=== PATIENT | female | born 1955 | race Caucasian/White ===

== ENCOUNTER 2018-12-07 19:13 | Inpatient (IN) | payer OTHER, SELFPAY ==
[2018-12-07 19:13] VITALS: BP 129/75; PULSE 120; RESP 15; TEMP 36.9; O2SAT 95; BMI 25.7
--- NOTE | 2018-12-07 19:53 | ED.DCSUM_ITS ---
- ER Visit Summary Date of Service: 12/07/18 Chief Complaint: Nausea and vomiting History of Present Illness: The patient is a 63 F who was at a birthday republican for her grandson 1 week ago. The following day the patient's son and grandson had GI illness. Patient developed chills and body aches 5 days ago along with diarrhea. She is now had vomiting as well for the past 3 days. She went to urgent care earlier today and was given Zofran. This is not helping her vomiting. Patient complains of feeling bloated and having increased belching. She has not had blood associated either with her vomiting or with the diarrhea. Physical Examination: Vital signs significant for heart rate of 120, otherwise unremarkable. Patient sitting upright in bed no acute distress. She is nontoxic appearing. Head neck examination unremarkable. Heart is tachycardic and regular. Lungs sounds are clear. Abdomen is soft with no focal tenderness to palpation. Hypoactive bowel sounds are present currently. Test Results: CBC is unremarkable. Chemistry studies reveal a sodium of 125 potassium 3.4. BUN is 44 and creatinine is 1.16. Urinalysis shows 150 ketones but no infection. LFTs normal. Abdominal x-ray and upright images are concerning for small bowel obstruction. Emergency Department Course and Treatment: Patient was given IV fluids and Phenergan. She initially told me she was having diarrhea but when asked further she states she had diarrhea for the first day or 2, but has not passed any stool in the last 3 days. Due to continued nausea she did receive a dose of Reglan and Benadryl. After observing the x-rays patient was sent for a CT scan of the abdomen and pelvis with IV contrast. She was not able to tolerate p.o. contrast. Findings of this revealed a high-grade distal small bowel obstruction. Air-fluid level is noted in the mid pelvis and considerations include internal hernia or abscess. Normal-appearing appendix is noted. NG tube is ordered in place without difficulty. She initially has 1200 cc of fluid out and feels significantly improved. Abdomen is soft with very minimal tenderness. Surgeon and hospitalist are discussed the case at this time for admission. Treatment Plan: [] Disposition: Admit Impression: Small bowel obstruction This note was generated with Wize dictation software. It may contain incorrect words, spelling, and punctuation that were not noted in review of the chart prior to signing ED Disposition - Plan for ED Patient: Disposition: Acute Care Hospital [facility]
[2018-12-07] MEDS: 0.9% Normal Saline 1,000 ML 1000 ML IV (19:59)
[2018-12-07] MEDS: proMETHazine 25 MG/ML Syringe 12.5 MG IV (19:59)
[2018-12-07 20:16] LABS: Absolute Lymphocyte Count 0.77 X10^3/ul (0.83-4.51); Absolute Neutrophil Count 3.1 X10^3/uL (2.0-7.7); Basophil# 0.01 X10^3/uL; Basophil% 0.2 % (0-1); Eosinophil# 0.01 X10^3/uL; Eosinophils% 0.2 % (0-5); Hematocrit 41.1 % (37-47); Hemoglobin 14.5 g/dl (12.0-15.0); Lymphocyte # 0.77 X10^3/ul (4.0); Lymphocyte % 16.8 % (19-41); Mean Corp Hgb Conc 35.3 g/gl (32-36); Mean Corpuscular Hgb 31.8 pg (27.0-32.0); Mean Corpuscular Volume 90.1 fL (81-99); Mean Platelet Vol. 10.5 fl (6.2-12.0); Monocyte# 0.68 X10^3/uL; Monocyte% 14.8 % (0-10); Neutrophil # 3.09 X10^3/uL (2.7-7.7); Neutrophil % 67.3 % (47-70); Platelet Count 433 K/mm3 (150-450); RBC Distribution Width CV 13.2 % (11.6-14.6); Red Blood Count 4.56 M/mm3 (4.2-5.4); White Blood Count 4.6 K/mm3 (4.4-11.0)
[2018-12-07 20:18] LABS: POSITIVE COUNT NO; POSITIVE DIFFERENTIAL NO; POSITIVE MORPHOLOGY NO
[2018-12-07 20:34] LABS: AST(SGOT) 19 U/L (15-37); Alanine Aminotransfer ALT/SGPT 23 U/L (13-56); Albumin, Serum 3.8 g/dL (3.2-5.0); Alkaline Phosphatase 84 U/L (45-117); Anion Gap 13 (5-15); BUN 44 mg/dL (7-18); BUN/Creat Ratio 37.9 RATIO (10-20); Bilirubin, Direct 0.16 mg/dL (0.00-0.30); Calcium,Total 9.5 mg/dL (8.5-10.1); Chloride 82 mmol/L (98-107); Creatinine, Serum 1.16 mg/dL (0.55-1.02); EST Glomerular Filtration Rate 50 mL/min (>60); Est Glom Filt Rate - Afr Amer 60 mL/min (>60); Estimated Creatinine Clearance 45.87 ml/min; Globulin 5.1 g/dL (2.2-4.2); Glucose 145 mg/dL (74-106); Potassium 3.4 mmol/L (3.5-5.1); Protein, Total 8.9 g/dL (6.4-8.2); Sodium Level 125 mmol/L (136-145)
[2018-12-07] MEDS: 0.9% Normal Saline 1,000 ML 150 ML IV (20:36)
[2018-12-07 20:43] LABS: Color, Urine Yellow (Yellow); Glucose, Dipstick Normal (Normal); Leukocyte Esterase-Dipstick 25 /ul (Negative); Nitrite-Dipstick Negative (Negative); Occult Blood-Urine 25 /ul (Negative); Protein-Dipstick 100 mg/dl (Negative); Urine Clarity Cloudy (Clear); Urine Urobilinogen 1 mg/dl (Normal)
[2018-12-07 20:44] LABS: Urine Bilirubin Dipstick 3 mg/dL (Negative)
[2018-12-07 20:45] LABS: Ketone-Dipstick 150 mg/dl (Negative)
[2018-12-07 20:50] LABS: Squamous Epithelial Cells - UA 5-10 SEEN /hpf (5-10); White Blood Cells 0-5 SEEN /hpf (0-5)
[2018-12-07 20:52] LABS: Bacteria 2+ /hpf (None Seen); Hyaline Cast 0-5 SEEN /lpf (0-5); Mucous, Urine 2+ /hpf (<or=2+); Red Blood Cells-Urine 0-5 SEEN /hpf (0-5)
--- NOTE | 2018-12-07 21:28 | ED.RN ---
lab called critical result on this pt of ketones in urine of 150, dr don notified, NFO
[2018-12-07] MEDS: Metoclopramide 10 MG/2 ML Vial 5 MG IV (21:35)
[2018-12-07] MEDS: 0.9% Normal Saline 1,000 ML 999 ML IV (21:36)
--- NOTE | 2018-12-07 21:37 | RAD_ITS ---
HISTORY: VOMITING x3 DAYS, GAS PAINS EXAM/TECHNIQUE: XR Abdomen supine and upright views. COMPARISON: None. FINDINGS: # of images incl. paperwork: 2 Dilated loops of small bowel with air-fluid levels on the upright view. No apparent free air. No suspicious mass-effect or acute osseous abnormality. Left scoliosis lumbar spine. Upper abdominal calcifications are probably costochondral. No definite pathologic calcifications. Air and stool is seen within the large bowel but it is relatively decompressed. RAD/Abd Inc Decub and/or Erect IMPRESSION: Small bowel obstruction. No evidence of free air. CT abdomen/pelvis would more definitively evaluate. at [id number] Reported and signed by: Sergo Ramirez MD Electronically Signed: Sergo Ramirez, at 22:45 EDT Tel , Service support ,
--- NOTE | 2018-12-07 22:41 | CT_ITS ---
STUDY: CT ABDOMEN AND PELVIS WITH CONTRAST REASON FOR EXAM: Female, 63 years old. Right-sided abdominal pain for one week. RADIATION DOSAGE (If Supplied By Facility): CTDIvol = ( 13.15 ) mGy, DLP = ( 673.06 ) mGycm TECHNIQUE: Transaxial images were obtained from the dome of the diaphragm to the symphysis pubis without oral contrast. Isovue 300 100 IV was administered. Sagittal and coronal images were reconstructed. Individualized dose optimization techniques were used for this CT. COMPARISON: Abdominal series December 07, 2018. FINDINGS: The visualized lung bases are unremarkable. The visualized portions of the heart are within normal limits. Normal liver. Normal gallbladder and extrahepatic biliary system. Normal spleen. Normal pancreas. Normal bilateral adrenal glands. Normal right kidney. Normal left kidney. Small hiatal hernia filled with fluid. The stomach is dilated with fluid. Fluid-filled loops of small bowel some dilated to 4 cm compatible with a distal small bowel obstruction. Transition zone right hemipelvis at approximately the level of the iliac crest. Air fluid level measuring 6.1 x 3.2 cm the mid pelvis which may represent an internal hernia or an abscess axial image 80 series 2 and coronal image 48 series 601. Mild colonic diverticulosis . The appendix is visualized and appears normal. Normal abdominal aorta. Normal inferior vena cava. Normal retroperitoneum. No intra-abdominal free air. Normal urinary bladder. Uterus grossly normal. No adnexal mass is seen. Normal abdominal wall. Multilevel degenerative changes of the lumbar spine. CT/Abdomen/Pelvis W IV Cont ONLY IMPRESSION: High-grade distal small bowel obstruction. Air-fluid level in the mid pelvis. Considerations include an internal hernia or an abscess. Mild colonic diverticulosis. Normal appendix. Electronically Signed: Jian Covarrubias MD at 0:49 EDT , Service support ,
--- NOTE | 2018-12-08 00:48 | RAD_ITS ---
STUDY: X-RAY - ABDOMEN/PELVIS REASON FOR EXAM: Female, 63 years old. Nasogastric tube placement. TECHNIQUE: AP upright abdomen. COMPARISON: December 07, 2018. FINDINGS: Normal visualized lung bases. Nasogastric tube is now present with the tip in the gastric fundus. Dilated loops of small bowel in the upper abdomen improved since the prior exam. There is no demonstrated free abdominal air. The visualized liver, spleen and kidneys are grossly normal in size and morphology. Intravenous contrast within normal-appearing collecting systems and ureters from recent CT scan. Normal soft tissue structures. Degenerative changes of the lumbar spine. RAD/Abdomen Single View (Portable) IMPRESSION: Nasogastric tube tip in the gastric fundus. Improving small bowel obstruction. Electronically Signed: Jian Covarrubias MD at 2:16 EDT , Service support ,
[2018-12-08 00:53] VITALS: BP 130/82; PULSE 98; RESP 20; O2SAT 97
--- NOTE | 2018-12-08 01:04 | ED.RN ---
DR ANDREA PAGED FOR DR ORNELAS
--- NOTE | 2018-12-08 01:10 | ED.RN ---
PT STATES SHE TAKES OTC MEDICATION/SUPPLEMENTS, BUT NO RXS.
--- NOTE | 2018-12-08 01:11 | HP.PCM_ITS ---
History of Present Illness The patient is a 63 year old F [] Past Medical History Allergies No Known Allergies Allergy (Verified 12/07/18 19:18) Home Medications: Ambulatory Orders Medication Instructions Recorded NK 12/08/18 Smoking Status: Former smoker - Physical Exam Vital Signs Temp Pulse Resp BP Pulse Ox 98.5 F 98 20 H 130/82 H 97 12/07/18 19:13 12/08/18 00:53 12/08/18 00:53 12/08/18 00:53 12/08/18 00:53 Oxygen Delivery Method Room Air Weight: 72.121 kg Body Mass Index (BMI) 25.7 Intake and Output for Last 24 Hours 12/06/18 12/07/18 12/08/18 23:59 23:59 23:59 Output Total 1200 / 1200 Balance -1200 / -1200 Laboratory Tests Past 24 Hrs 12/07/18 12/07/18 12/07/18 20:00 20:00 20:30 WBC 4.6 RBC 4.56 Hgb 14.5 Hct 41.1 MCV 90.1 MCH 31.8 MCHC 35.3 RDW 13.2 RDW Differential 43.0 Plt Count 433 MPV 10.5 Immature Gran % (Auto) 0.700 Neut % (Auto) 67.3 Lymph % (Auto) 16.8 L [place] % (Auto) 14.8 H Eos % (Auto) 0.2 Baso % (Auto) 0.2 Absolute Neuts (auto) 3.1 Absolute Lymphs (auto) 0.77 L Total Counted Not Reportable Sodium 125 L Potassium 3.4 L Chloride 82 L Carbon Dioxide 30.0 Anion Gap 13 BUN 44 H Creatinine 1.16 H Estim Creat Clear Calc 45.87 Est GFR (MDRD) Af Amer 60 Est GFR (MDRD) Non-Af 50 L BUN/Creatinine Ratio 37.9 H Glucose 145 H Calcium 9.5 Total Bilirubin 0.50 Direct Bilirubin 0.16 AST 19 ALT 23 Alkaline Phosphatase 84 Total Protein 8.9 H Albumin 3.8 Globulin 5.1 H Urine Color Yellow Urine Clarity Cloudy Urine pH 5.0 Ur Specific [place] 1.020 Urine Protein 100 H Urine Glucose (UA) Normal Urine Ketones 150 H Urine Occult Blood 25 H Urine Nitrite Negative Urine Bilirubin 3 H Urine Urobilinogen 1 H Ur Leukocyte Esterase 25 H Urine RBC 0-5 SEEN Urine WBC 0-5 SEEN Ur Squamous Epith Cells 5-10 SEEN Urine Bacteria 2+ Hyaline Casts 0-5 SEEN Urine Mucus 2+
--- NOTE | 2018-12-08 01:55 | HP.PCM_ITS ---
Problem List (1) Small bowel obstruction Status: Acute (2) Hyponatremia Status: Acute (3) Hypokalemia Status: Acute History of Present Illness Date of Admission: 12/08/18 The patient is a 63 F who was at a birthday constitution party for her grandson 1 week ago. The following day the patient's son and grandson had GI illness. Patient developed chills and body aches 5 days ago along with diarrhea. She is now had vomiting as well for the past 3 days. She went to urgent care earlier today and was given Zofran. This is not helping her vomiting. Patient complains of feeling bloated and having increased belching. She has not had blood associated either with her vomiting or with the diarrhea. Past Medical History Allergies No Known Allergies Allergy (Verified 12/07/18 19:18) Home Medications: Ambulatory Orders Medication Instructions Recorded NK 12/08/18 Surgical History: no surgical history Smoking Status: Former smoker - *Family History Maternal History Items: No pertinent history Review of Systems HEENT: Denies: Dysphasia, Ear Pain, Eye Pain, Head Aches, Hearing Changes, Sore Throat Cardiovascular: Denies: Chest Pain, Chest Pressure, Chest Tightness, Palpitations Respiratory: Denies: Cough, Hemoptysis, Shortness of breath at rest, Shortness of breath upon exertion, Wheezing Gastrointestinal: Reports: Nausea, Vomiting - Patient feels much better since NG tube is in place he is not complaining of any overt abdominal pain Genitourinary: Denies: Dysuria, Frequency, Hematuria, Urgency VTE Information - Inpt Only VTE Present on Admission: No VTE Mechan Device Prophylaxis: SCD's VTE Pharm Prophylaxis ordered?: No Reason prophylaxis not ordered:: Treatment Not Indicated Patient Problems: Active and Suspected Problems Small bowel obstruction (Acute) Hyponatremia (Acute) Hypokalemia (Acute) - Physical Exam General: Alert, Oriented x3 Oral: Moist Mucosa Neck: Supple, No JVD Lungs: Clear to auscultation Cardiovascular: Regular rate, Regular Rhythm, No murmurs Abdomen: Bowel Sounds Present, Soft, Non Tender, Non-Distended Extremities: No clubbing, No cyanosis, No edema Vital Signs Temp Pulse Resp BP Pulse Ox 98.5 F 98 20 H 130/82 H 97 12/07/18 19:13 12/08/18 00:53 12/08/18 00:53 12/08/18 00:53 12/08/18 00:53 Oxygen Delivery Method Room Air Weight: 159 lb Body Mass Index (BMI) 25.7 Intake and Output for Last 24 Hours 12/06/18 12/07/18 12/08/18 23:59 23:59 23:59 Output Total 1200 / 1200 Balance -1200 / -1200 Laboratory Tests Past 24 Hrs 12/07/18 12/07/18 12/07/18 20:00 20:00 20:30 WBC 4.6 RBC 4.56 Hgb 14.5 Hct 41.1 MCV 90.1 MCH 31.8 MCHC 35.3 RDW 13.2 RDW Differential 43.0 Plt Count 433 MPV 10.5 Immature Gran % (Auto) 0.700 Neut % (Auto) 67.3 Lymph % (Auto) 16.8 L [place] % (Auto) 14.8 H Eos % (Auto) 0.2 Baso % (Auto) 0.2 Absolute Neuts (auto) 3.1 Absolute Lymphs (auto) 0.77 L Total Counted Not Reportable Sodium 125 L Potassium 3.4 L Chloride 82 L Carbon Dioxide 30.0 Anion Gap 13 BUN 44 H Creatinine 1.16 H Estim Creat Clear Calc 45.87 Est GFR (MDRD) Af Amer 60 Est GFR (MDRD) Non-Af 50 L BUN/Creatinine Ratio 37.9 H Glucose 145 H Calcium 9.5 Total Bilirubin 0.50 Direct Bilirubin 0.16 AST 19 ALT 23 Alkaline Phosphatase 84 Total Protein 8.9 H Albumin 3.8 Globulin 5.1 H Urine Color Yellow Urine Clarity Cloudy Urine pH 5.0 Ur Specific [place] 1.020 Urine Protein 100 H Urine Glucose (UA) Normal Urine Ketones 150 H Urine Occult Blood 25 H Urine Nitrite Negative Urine Bilirubin 3 H Urine Urobilinogen 1 H Ur Leukocyte Esterase 25 H Urine RBC 0-5 SEEN Urine WBC 0-5 SEEN Ur Squamous Epith Cells 5-10 SEEN Urine Bacteria 2+ Hyaline Casts 0-5 SEEN Urine Mucus 2+ Assessment/Plan All Active Problems Small bowel obstruction (Acute) Hyponatremia (Acute) Hypokalemia (Acute) CAT scan was read as a high-grade bowel obstruction. Patient has no overt abdominal pain at this time and I do not think she has a surgical abdomen. I have asked hospitalist to help with the patient's hyponatremia and hypokalemia with IV fluid management. I anticipate the patient will hopefully return to her baseline with the hydration and NG tube decompression. I have informed the patient however though that if she were to worsen she could require us to take her to surgery for an exploratory laparoscopy and possibly an exploratory laparotomy.
--- NOTE | 2018-12-08 02:39 | PCM.CONS.GEN ---
Problem List (1) Hypokalemia Status: Acute (2) Hyponatremia Status: Acute (3) Small bowel obstruction Status: Acute Reason for Consult Date of Consultation: 12/08/18 Reason for Consultation: Electrolyte imbalance History of Present Illness: The patient is a 63 year old F with no significant medical history who presented to the emergency department with a 5-day history of nausea, vomiting, diarrhea for 1 day, chills, and body aches. Her nausea and vomiting progressed to a point that she was not able to keep anything down. She went to an urgent care and she was given Zofran p.o. She was instructed that if after 3 doses of the Zofran if she could not keep anything that should come to the emergency department. Because she could not keep anything down after the 3 doses of the Zofran she came to the emergency department. Also patient reported some diffuse rotating abdominal pain that she described as a feeling of gas in her abdomen. At the time of examination patient was having an NG tube and she reports that her abdominal pain had greatly improved. Patient reported that about 1 week ago she was present at the celebration of the 1 year birthday of one of her grand sons. She reported that her son also got sick with diarrhea during the time of celebration. On a later day her other grand son also got sick with vomiting and diarrhea. CT scan of the abdomen and pelvis at the emergency department showed high-grade distal small bowel obstruction; air-fluid level in the mid pelvis; and mid colonic diverticulosis. At emergency department his sodium was 125; potassium was 3.4 and her chloride was 82. Her creatinine was 1.16. She had elevated protein and ketones in her urine; urine occult blood was positive. General surgery is primary. Internal medicine was consulted to manage patient's electrolytes. Past Medical History Medical History: Medical History (Last Updated 12/08/18 @ 03:00 by Frank Jacobson MD) Denies any previous medical history. (Acute) Allergies No Known Allergies Allergy (Verified 12/07/18 19:18) Home Medications: Ambulatory Orders Medication Instructions Recorded NK 12/08/18 Surgical History: - - Steel plate in left leg; had some stitches placed in her extremities when she was a child. Lives: Spouse/ Significant Other Smoking Status: Former smoker Alcohol: Occasional - *Family History Maternal History Items: - - Reported her mother had gallbladder disease and lymphoma. Paternal History Items: - - Her father had hypertension; Alzheimer dementia; and GI problems. Review of Systems Constitutional: Reports: Chills. Denies: Fever, Weight Change HEENT: Denies: Head Aches, Sinus Congestion, Sinus Drainage Cardiovascular: Denies: Chest Pain, Palpitations Respiratory: Denies: Cough, Shortness of breath at rest, Sputum production Gastrointestinal: Reports: Abdominal Pain, Diarrhea - Transient, Nausea, Vomiting Genitourinary: Denies: Dysuria Musculoskeletal: Reports: Muscle pain. Denies: Joint Pain, Joint Tenderness Skin: Denies: Rash, Wounds Neurological: Denies: Numbness, Tingling, Focal weakness Psychiatric: Denies: Anxiety, Depression, Homicidal Ideations, Suicidal Ideations Hematologic/ Lymphatic: Denies: Easy Bruising, Easy Bleeding Patient Problems: Active and Suspected Problems (Last Updated 12/08/18 @ 03:00 by Frank Jacobson MD) Small bowel obstruction (Acute) Hyponatremia (Acute) Hypokalemia (Acute) Denies any previous medical history. (Acute) - Physical Exam General: Alert, Oriented x3, Cooperative HEENT: Atraumatic, PERRLA, EOMI, Normocephalic, - - Patient with NG in place Neck: Supple, No JVD, Negative Carotid Bruits Lungs: Clear to auscultation, Normal air movement Cardiovascular: Regular rate, No murmurs Abdomen: Bowel Sounds Present, Soft, Non Tender Extremities: No edema, Capillary Refill Less than 3 Seconds Skin: No rashes, No breakdown Musculoskeletal: No Tenderness to Palpation of Joints or Extremities Neurological: Cranial nerves II-XII grossly intact Psych/Mental Status: Normal Affect, Appropriate Vital Signs Temp Pulse Resp BP Pulse Ox 98.5 F 98 20 H 130/82 H 97 12/07/18 19:13 12/08/18 00:53 12/08/18 00:53 12/08/18 00:53 12/08/18 00:53 Oxygen Delivery Method Room Air Weight: 72.121 kg Body Mass Index (BMI) 25.7 Intake and Output for Last 24 Hours 12/06/18 12/07/18 12/08/18 23:59 23:59 23:59 Output Total 1200 / 1200 Balance -1200 / -1200 Laboratory Tests Past 24 Hrs 12/07/18 12/07/1812/07/19 20:00 20:00 20:30 WBC 4.6 RBC 4.56 Hgb 14.5 Hct 41.1 MCV 90.1 MCH 31.8 MCHC 35.3 RDW 13.2 RDW Differential 43.0 Plt Count 433 MPV 10.5 Immature Gran % (Auto) 0.700 Neut % (Auto) 67.3 Lymph % (Auto) 16.8 L [place] % (Auto) 14.8 H Eos % (Auto) 0.2 Baso % (Auto) 0.2 Absolute Neuts (auto) 3.1 Absolute Lymphs (auto) 0.77 L Total Counted Not Reportable Sodium 125 L Potassium 3.4 L Chloride 82 L Carbon Dioxide 30.0 Anion Gap 13 BUN 44 H Creatinine 1.16 H Estim Creat Clear Calc 45.87 Est GFR (MDRD) Af Amer 60 Est GFR (MDRD) Non-Af 50 L BUN/Creatinine Ratio 37.9 H Glucose 145 H Calcium 9.5 Total Bilirubin 0.50 Direct Bilirubin 0.16 AST 19 ALT 23 Alkaline Phosphatase 84 Total Protein 8.9 H Albumin 3.8 Globulin 5.1 H Urine Color Yellow Urine Clarity Cloudy Urine pH 5.0 Ur Specific [place] 1.020 Urine Protein 100 H Urine Glucose (UA) Normal Urine Ketones 150 H Urine Occult Blood 25 H Urine Nitrite Negative Urine Bilirubin 3 H Urine Urobilinogen 1 H Ur Leukocyte Esterase 25 H Urine RBC 0-5 SEEN Urine WBC 0-5 SEEN Ur Squamous Epith Cells 5-10 SEEN Urine Bacteria 2+ Hyaline Casts 0-5 SEEN Urine Mucus 2+ Assessment/Plan All Active Problems (Last Updated 12/08/18 @ 03:00 by Frank Jacobson MD) Small bowel obstruction (Acute) Hyponatremia (Acute) Hypokalemia (Acute) Denies any previous medical history. (Acute) The patient is a 63 year old F with no significant medical history who presented to the emergency department with a 5-day history of nausea, vomiting, diarrhea for 1 day, chills, and body aches who was found to have a probable small bowel obstruction; and also with electrolyte abnormalities. Hyponatremia with hypochloremia Place on MedSurg with telemetry. Likely secondary to one-time episode of diarrhea; and continuous nausea and vomiting. At this time patient has NG tube low wall suction which can further aggravate her hyponatremia and hypochloremia. Patient received IV normal saline bolus and continuous infusion from the emergency department. We will switch patient to lactated Ringer's with 40 mEq of potassium because of concomitant hypokalemia. We will repeat BMP 10 AM on 12/08/2018. Hypokalemia Mild On presentation her potassium was 3.4. Likely due to nausea and vomiting; and transient diarrhea. Lactated Ringer's with 40 mEq of potassium going at 100 MLS per hour for 1 L. Repeat BMP at 10 AM on 12/08/2018. Small bowel obstruction Patient with NG tube. General surgery place patient on nothing by mouth status but with ice chips. General surgery is managing. General surgery does not think patient has an acute abdomen at this time and will pursue conservative management Zofran as needed ordered. Patient feels relieved from abdominal pain with the NG tube in place. Different diagnosis include gastroenteritis as multiple family members were sick with similar symptoms and patient had transient diarrhea. Supportive treatment with IV fluids. Probable [place] I On admission her creatinine was 1.16. There was no previous creatinine to compare with. Her BUN over creatinine was 37.9. Likely prerenal from hypovolemia secondary to vomiting and diarrhea. IV treatments as above. Avoid nephrotoxics Trend BMP as above. Abnormal urinalysis Patient with proteinuria; urinary ketones; urine occult blood; increase urine bilirubinemia; increase urine blood imaging and increase leukocyte esterase. This is likely secondary to hypovolemia secondary to nausea, vomiting and diarrhea. IV hydration as above. DVT prophylaxis Subcutaneous heparin ordered. Code Visit Inpatient E&M: 27031 Init Hosp L3
[2018-12-08 03:15] VITALS: BMI 25.0
[2018-12-08 03:21] VITALS: BMI 25.0
[2018-12-08 03:48] VITALS: BP 143/81; PULSE 117; RESP 16; TEMP 36.6; O2SAT 93
[2018-12-08 06:22] LABS: Absolute Lymphocyte Count 0.83 X10^3/ul (0.83-4.51); Absolute Neutrophil Count 3.2 X10^3/uL (2.0-7.7); Basophil# 0.02 X10^3/uL; Basophil% 0.4 % (0-1); Eosinophil# 0.01 X10^3/uL; Eosinophils% 0.2 % (0-5); Hemoglobin 13.5 g/dl (12.0-15.0); Lymphocyte # 0.83 X10^3/ul (4.0); Lymphocyte % 17.5 % (19-41); Mean Corp Hgb Conc 33.8 g/gl (32-36); Mean Corpuscular Hgb 31.1 pg (27.0-32.0); Mean Corpuscular Volume 92.2 fL (81-99); Mean Platelet Vol. 10.8 fl (6.2-12.0); Monocyte# 0.64 X10^3/uL; Monocyte% 13.5 % (0-10); Neutrophil # 3.17 X10^3/uL (2.7-7.7); Neutrophil % 67.1 % (47-70); Platelet Count 387 K/mm3 (150-450); RBC Distribution Width CV 13.4 % (11.6-14.6); RBC Distribution Width SD 44.5 fl (35.1-43.9); Red Blood Count 4.34 M/mm3 (4.2-5.4); White Blood Count 4.7 K/mm3 (4.4-11.0)
[2018-12-08 06:30] LABS: ALB/GLOB Ratio 0.7 RATIO (0.9-2.4); AST(SGOT) 17 U/L (15-37); Alanine Aminotransfer ALT/SGPT 23 U/L (13-56); Albumin, Serum 3.3 g/dL (3.2-5.0); Alkaline Phosphatase 74 U/L (45-117); Anion Gap 12 (5-15); BUN 39 mg/dL (7-18); BUN/Creat Ratio 46.8 RATIO (10-20); Calcium,Total 9.2 mg/dL (8.5-10.1); Chloride 86 mmol/L (98-107); Creatinine, Serum 0.83 mg/dL (0.55-1.02); EST Glomerular Filtration Rate 73 mL/min (>60); Est Glom Filt Rate - Afr Amer 89 mL/min (>60); Globulin 4.6 g/dL (2.2-4.2); Glucose 123 mg/dL (74-106); Potassium 3.2 mmol/L (3.5-5.1); Protein, Total 7.9 g/dL (6.4-8.2); Sodium Level 131 mmol/L (136-145)
[2018-12-08] MEDS: Heparin Injection (Vial) 5,000 UNIT/ML VIAL 5000 UNIT SC ×3 (06:37→21:21)
[2018-12-08 06:44] LABS: Differential Indicated SCAN CRITERIA MET; POSITIVE COUNT NO; POSITIVE DIFFERENTIAL NO; POSITIVE MORPHOLOGY YES
[2018-12-08 07:00] LABS: Differential Comment SCANNED
[2018-12-08 07:59] LABS: Magnesium 2.6 mg/dL (1.6-2.6)
[2018-12-08 08:17] VITALS: BP 124/77; PULSE 97; RESP 18; TEMP 36.9; O2SAT 94
[2018-12-08] MEDS: Potassium Chloride 10mEq/100mL 10 MEQ/100 ML IV.SOLN. 100 MEQ IV BOLUS ×5 (09:04→23:02)
[2018-12-08 09:24] LABS: Phosphorus 4.1 mg/dL (2.5-4.9)
[2018-12-08 09:56] LABS: Anion Gap 9 (5-15); BUN 41 mg/dL (7-18); BUN/Creat Ratio 40.6 RATIO (10-20); Chloride 88 mmol/L (98-107); Creatinine, Serum 1.01 mg/dL (0.55-1.02); EST Glomerular Filtration Rate 59 mL/min (>60); Est Glom Filt Rate - Afr Amer 71 mL/min (>60); Estimated Creatinine Clearance 52.68 ml/min; Glucose 145 mg/dL (74-106); Potassium 3.4 mmol/L (3.5-5.1); Sodium Level 131 mmol/L (136-145)
--- NOTE | 2018-12-08 10:44 | PCM.PN.SRG ---
Patient Problems: Active and Suspected Problems (Last Updated 12/08/18 @ 03:00 by Frank Jacobson MD) Small bowel obstruction (Acute) Hyponatremia (Acute) Hypokalemia (Acute) Denies any previous medical history. (Acute) Subjective: Patient evaluated resting comfortably in bed. Patient notes very little abdominal pain/discomfort. She has passed single episode of flatus. Negative BM. Negative nausea, vomiting. NG tube intact. - Physical Exam General: Alert, Oriented x3, Cooperative Abdomen: Soft, Non Tender, Hypoactive Bowel Sounds, Distended - slightly Vital Signs Temp Pulse Resp BP Pulse Ox 98.4 F 97 18 124/77 H 94 12/08/18 08:17 12/08/18 08:17 12/08/18 08:17 12/08/18 08:17 12/08/18 08:17 Oxygen Delivery Method Room Air Weight: 155 lb Body Mass Index (BMI) 25.0 Intake and Output for Last 24 Hours 12/06/18 12/07/18 12/08/18 23:59 23:59 23:59 Intake Total 595 / 595 Output Total 1999 / 1999 Balance -1405 / -1405 Laboratory Tests Past 24 Hrs 12/07/18 12/07/18 12/07/18 20:00 20:00 20:30 WBC 4.6 RBC 4.56 Hgb 14.5 Hct 41.1 MCV 90.1 MCH 31.8 MCHC 35.3 RDW 13.2 RDW Differential 43.0 Plt Count 433 MPV 10.5 Immature Gran % (Auto) 0.700 Neut % (Auto) 67.3 Lymph % (Auto) 16.8 L [place] % (Auto) 14.8 H Eos % (Auto) 0.2 Baso % (Auto) 0.2 Absolute Neuts (auto) 3.1 Absolute Lymphs (auto) 0.77 L Total Counted Not Reportable Differential Comment Sodium 125 L Potassium 3.4 L Chloride 82 L Carbon Dioxide 30.0 Anion Gap 13 BUN 44 H Creatinine 1.16 H Estim Creat Clear Calc 45.87 Est GFR (MDRD) Af Amer 60 Est GFR (MDRD) Non-Af 50 L BUN/Creatinine Ratio 37.9 H Glucose 145 H Calcium 9.5 Phosphorus Magnesium Total Bilirubin 0.50 Direct Bilirubin 0.16 AST 19 ALT 23 Alkaline Phosphatase 84 Total Protein 8.9 H Albumin 3.8 Globulin 5.1 H Albumin/Globulin Ratio Urine Color Yellow Urine Clarity Cloudy Urine pH 5.0 Ur Specific [place] 1.020 Urine Protein 100 H Urine Glucose (UA) Normal Urine Ketones 150 H Urine Occult Blood 25 H Urine Nitrite Negative Urine Bilirubin 3 H Urine Urobilinogen 1 H Ur Leukocyte Esterase 25 H Urine RBC 0-5 SEEN Urine WBC 0-5 SEEN Ur Squamous Epith Cells 5-10 SEEN Urine Bacteria 2+ Hyaline Casts 0-5 SEEN Urine Mucus 2+ 12/08/18 12/08/18 12/08/18 05:56 05:56 05:56 WBC 4.7 RBC 4.34 Hgb 13.5 Hct 40.0 MCV 92.2 MCH 31.1 MCHC 33.8 RDW 13.4 RDW Differential 44.5 H Plt Count 387 MPV 10.8 Immature Gran % (Auto) 1.300 H Neut % (Auto) 67.1 Lymph % (Auto) 17.5 L [place] % (Auto) 13.5 H Eos % (Auto) 0.2 Baso % (Auto) 0.4 Absolute Neuts (auto) 3.2 Absolute Lymphs (auto) 0.83 Total Counted Not Reportable Differential Comment SCANNED Sodium 131 L Potassium 3.2 L Chloride 86 L Carbon Dioxide 33.0 H Anion Gap 12 BUN 39 H Creatinine 0.83 Estim Creat Clear Calc 64.10 Est GFR (MDRD) Af Amer 89 Est GFR (MDRD) Non-Af 73 BUN/Creatinine Ratio 46.8 H Glucose 123 H Calcium 9.2 Phosphorus Magnesium 2.6 Total Bilirubin 0.50 Direct Bilirubin AST 17 ALT 23 Alkaline Phosphatase 74 Total Protein 7.9 Albumin 3.3 Globulin 4.6 H Albumin/Globulin Ratio 0.7 L Urine Color Urine Clarity Urine pH Ur Specific [place] Urine Protein Urine Glucose (UA) Urine Ketones Urine Occult Blood Urine Nitrite Urine Bilirubin Urine Urobilinogen Ur Leukocyte Esterase Urine RBC Urine WBC Ur Squamous Epith Cells Urine Bacteria Hyaline Casts Urine Mucus 12/08/18 12/08/18 05:56 09:26 WBC RBC Hgb Hct MCV MCH MCHC RDW RDW Differential Plt Count MPV Immature Gran % (Auto) Neut % (Auto) Lymph % (Auto) [place] % (Auto) Eos % (Auto) Baso % (Auto) Absolute Neuts (auto) Absolute Lymphs (auto) Total Counted Differential Comment Sodium 131 L Potassium 3.4 L Chloride 88 L Carbon Dioxide 34.0 H Anion Gap 9 BUN 41 H Creatinine 1.01 Estim Creat Clear Calc 52.68 Est GFR (MDRD) Af Amer 71 Est GFR (MDRD) Non-Af 59 L BUN/Creatinine Ratio 40.6 H Glucose 145 H Calcium 9.0 Phosphorus 4.1 Magnesium Total Bilirubin Direct Bilirubin AST ALT Alkaline Phosphatase Total Protein Albumin Globulin Albumin/Globulin Ratio Urine Color Urine Clarity Urine pH Ur Specific [place] Urine Protein Urine Glucose (UA) Urine Ketones Urine Occult Blood Urine Nitrite Urine Bilirubin Urine Urobilinogen Ur Leukocyte Esterase Urine RBC Urine WBC Ur Squamous Epith Cells Urine Bacteria Hyaline Casts Urine Mucus Medical Necessity - Tobacco Use Smoking Status: Former smoker Tobacco Use: Cigarettes Assessment/Plan All Active Problems (Last Updated 12/08/18 @ 03:00 by Frank Jacobson MD) Small bowel obstruction (Acute) Hyponatremia (Acute) Hypokalemia (Acute) Denies any previous medical history. (Acute) I am following this patient in conjunction with Dr. Gupta Small bowel obstruction Continue NG tube Replace potassium Continued ambulation May chew gum or suck on hard candy Once more flatus occurs will remove NG tube and try on clear liquids. We will continue to monitor this patient Code Visit Inpatient E&M: 50343 Subs Hosp L1 - No charge
--- NOTE | 2018-12-08 12:25 | PCM.HOSP.N ---
Hospitalist Note Seen and examined. Patient abdominal discomfort is much relieved. Patient had good NG tube suction, 1800 mL bilious in nature. Denies nausea vomiting. Had a small amount of flatus but did not feel good bowel relief. Continue NG tube suction and IV fluid. Most recently small bowel ileus secondary to viral infection. Patient had exposure to flulike symptoms in close relatives
--- NOTE | 2018-12-08 14:01 | PN_ITS ---
<Dre Ruiz - Last Filed: 12/08/18 13:57> Patient Problems: Active and Suspected Problems (Last Updated 12/08/18 @ 03:00 by Frank Jacobson MD) Small bowel obstruction (Acute) Hyponatremia (Acute) Hypokalemia (Acute) Denies any previous medical history. (Acute) Subjective: Pt notes overall improvement. Good drainage from NG tube. Significant decrease in Nausea, no vomiting. No abdominal pain. + small amount of flatus. No bowel movement. No fever/chills. No hx bowel obstruction, no hx of abdominal surgery. - Physical Exam General: Alert, Oriented x3, Cooperative HEENT: Atraumatic, PERRLA, EOMI, Normocephalic Neck: Supple, No JVD, Negative Carotid Bruits Lungs: Clear to auscultation, Normal air movement Cardiovascular: Regular rate, No murmurs Abdomen: Soft, Non Tender, Bowel Sounds Not Present Extremities: No edema, Capillary Refill Less than 3 Seconds Skin: No rashes, No breakdown Musculoskeletal: No Tenderness to Palpation of Joints or Extremities Neurological: Cranial nerves II-XII grossly intact Psych/Mental Status: Normal Affect, Appropriate, Alert and oriented to time, place, person, mood and affect Vital Signs Temp Pulse Resp BP Pulse Ox 98.4 F 97 18 124/77 H 94 12/08/18 08:17 12/08/18 08:17 12/08/18 08:17 12/08/18 08:17 12/08/18 08:17 Oxygen Delivery Method Room Air Weight: 154 lb 5.177 oz Body Mass Index (BMI) 25.0 Intake and Output for Last 24 Hours 12/06/18 12/07/18 12/08/18 23:59 23:59 23:59 Intake Total 1495 / 1495 Output Total 2600 / 2600 Balance -1105 / -1105 Laboratory Tests Past 24 Hrs 12/07/18 12/07/18 12/07/18 20:00 20:00 20:30 WBC 4.6 RBC 4.56 Hgb 14.5 Hct 41.1 MCV 90.1 MCH 31.8 MCHC 35.3 RDW 13.2 RDW Differential 43.0 Plt Count 433 MPV 10.5 Immature Gran % (Auto) 0.700 Neut % (Auto) 67.3 Lymph % (Auto) 16.8 L [place] % (Auto) 14.8 H Eos % (Auto) 0.2 Baso % (Auto) 0.2 Absolute Neuts (auto) 3.1 Absolute Lymphs (auto) 0.77 L Total Counted Not Reportable Differential Comment Sodium 125 L Potassium 3.4 L Chloride 82 L Carbon Dioxide 30.0 Anion Gap 13 BUN 44 H Creatinine 1.16 H Estim Creat Clear Calc 45.87 Est GFR (MDRD) Af Amer 60 Est GFR (MDRD) Non-Af 50 L BUN/Creatinine Ratio 37.9 H Glucose 145 H Calcium 9.5 Phosphorus Magnesium Total Bilirubin 0.50 Direct Bilirubin 0.16 AST 19 ALT 23 Alkaline Phosphatase 84 Total Protein 8.9 H Albumin 3.8 Globulin 5.1 H Albumin/Globulin Ratio Urine Color Yellow Urine Clarity Cloudy Urine pH 5.0 Ur Specific [place] 1.020 Urine Protein 100 H Urine Glucose (UA) Normal Urine Ketones 150 H Urine Occult Blood 25 H Urine Nitrite Negative Urine Bilirubin 3 H Urine Urobilinogen 1 H Ur Leukocyte Esterase 25 H Urine RBC 0-5 SEEN Urine WBC 0-5 SEEN Ur Squamous Epith Cells 5-10 SEEN Urine Bacteria 2+ Hyaline Casts 0-5 SEEN Urine Mucus 2+ 12/08/18 12/08/18 12/08/18 05:56 05:56 05:56 WBC 4.7 RBC 4.34 Hgb 13.5 Hct 40.0 MCV 92.2 MCH 31.1 MCHC 33.8 RDW 13.4 RDW Differential 44.5 H Plt Count 387 MPV 10.8 Immature Gran % (Auto) 1.300 H Neut % (Auto) 67.1 Lymph % (Auto) 17.5 L [place] % (Auto) 13.5 H Eos % (Auto) 0.2 Baso % (Auto) 0.4 Absolute Neuts (auto) 3.2 Absolute Lymphs (auto) 0.83 Total Counted Not Reportable Differential Comment SCANNED Sodium 131 L Potassium 3.2 L Chloride 86 L Carbon Dioxide 33.0 H Anion Gap 12 BUN 39 H Creatinine 0.83 Estim Creat Clear Calc 64.10 Est GFR (MDRD) Af Amer 89 Est GFR (MDRD) Non-Af 73 BUN/Creatinine Ratio 46.8 H Glucose 123 H Calcium 9.2 Phosphorus Magnesium 2.6 Total Bilirubin 0.50 Direct Bilirubin AST 17 ALT 23 Alkaline Phosphatase 74 Total Protein 7.9 Albumin 3.3 Globulin 4.6 H Albumin/Globulin Ratio 0.7 L Urine Color Urine Clarity Urine pH Ur Specific [place] Urine Protein Urine Glucose (UA) Urine Ketones Urine Occult Blood Urine Nitrite Urine Bilirubin Urine Urobilinogen Ur Leukocyte Esterase Urine RBC Urine WBC Ur Squamous Epith Cells Urine Bacteria Hyaline Casts Urine Mucus 12/08/18 12/08/18 05:56 09:26 WBC RBC Hgb Hct MCV MCH MCHC RDW RDW Differential Plt Count MPV Immature Gran % (Auto) Neut % (Auto) Lymph % (Auto) [place] % (Auto) Eos % (Auto) Baso % (Auto) Absolute Neuts (auto) Absolute Lymphs (auto) Total Counted Differential Comment Sodium 131 L Potassium 3.4 L Chloride 88 L Carbon Dioxide 34.0 H Anion Gap 9 BUN 41 H Creatinine 1.01 Estim Creat Clear Calc 52.68 Est GFR (MDRD) Af Amer 71 Est GFR (MDRD) Non-Af 59 L BUN/Creatinine Ratio 40.6 H Glucose 145 H Calcium 9.0 Phosphorus 4.1 Magnesium Total Bilirubin Direct Bilirubin AST ALT Alkaline Phosphatase Total Protein Albumin Globulin Albumin/Globulin Ratio Urine Color Urine Clarity Urine pH Ur Specific [place] Urine Protein Urine Glucose (UA) Urine Ketones Urine Occult Blood Urine Nitrite Urine Bilirubin Urine Urobilinogen Ur Leukocyte Esterase Urine RBC Urine WBC Ur Squamous Epith Cells Urine Bacteria Hyaline Casts Urine Mucus Medical Necessity - Tobacco Use Smoking Status: Former smoker Tobacco Use: Cigarettes Assessment/Plan All Active Problems (Last Updated 12/08/18 @ 03:00 by Frank Jacobson MD) Small bowel obstruction (Acute) Hyponatremia (Acute) Hypokalemia (Acute) Denies any previous medical history. (Acute) 1. SBO - as per Gen Surgery. Improving. NG in place. 2. Hyponatremia, hypokalemia - improved,continue to replete K. Mag/Phos ok. Continue NS. 3. Dehydration - continue IVF, 0.9% NaCl. DVT ppx: heparin Thank you for the opportunity to participate in the care of this patient This patient was seen by Dre Ruiz PA-C under the supervision of Doctor Rc. <Prateek Tatum - Last Filed: 12/08/18 15:32> - Physical Exam General: Alert, Oriented x3, Cooperative HEENT: Atraumatic, PERRLA, EOMI, Normocephalic Neck: Supple, No JVD, Negative Carotid Bruits Lungs: Clear to auscultation, Normal air movement Cardiovascular: Regular rate, No murmurs Abdomen: Bowel Sounds Present, Soft, Non Tender, Bowel Sounds Not Present Extremities: No edema, Capillary Refill Less than 3 Seconds Skin: No rashes, No breakdown Musculoskeletal: No Tenderness to Palpation of Joints or Extremities Neurological: Cranial nerves II-XII grossly intact, Deep Tendon Reflexes 2+/4 and Symmetrical, Neuro grossly intact Psych/Mental Status: Normal Affect, Appropriate Vital Signs Temp Pulse Resp BP Pulse Ox 98.4 F 97 18 124/77 H 94 12/08/18 08:17 12/08/18 08:17 12/08/18 08:17 12/08/18 08:17 12/08/18 08:17 Oxygen Delivery Method Room Air Weight: 154 lb 5.177 oz Body Mass Index (BMI) 25.0 Intake and Output for Last 24 Hours 12/06/18 12/07/18 12/08/18 23:59 23:59 23:59 Intake Total 1495 / 1495 Output Total 2600 / 2600 Balance -1105 / -1105 Laboratory Tests Past 24 Hrs 12/07/18 12/07/18 12/07/18 20:00 20:00 20:30 WBC 4.6 RBC 4.56 Hgb 14.5 Hct 41.1 MCV 90.1 MCH 31.8 MCHC 35.3 RDW 13.2 RDW Differential 43.0 Plt Count 433 MPV 10.5 Immature Gran % (Auto) 0.700 Neut % (Auto) 67.3 Lymph % (Auto) 16.8 L [place] % (Auto) 14.8 H Eos % (Auto) 0.2 Baso % (Auto) 0.2 Absolute Neuts (auto) 3.1 Absolute Lymphs (auto) 0.77 L Total Counted Not Reportable Differential Comment Sodium 125 L Potassium 3.4 L Chloride 82 L Carbon Dioxide 30.0 Anion Gap 13 BUN 44 H Creatinine 1.16 H Estim Creat Clear Calc 45.87 Est GFR (MDRD) Af Amer 60 Est GFR (MDRD) Non-Af 50 L BUN/Creatinine Ratio 37.9 H Glucose 145 H Calcium 9.5 Phosphorus Magnesium Total Bilirubin 0.50 Direct Bilirubin 0.16 AST 19 ALT 23 Alkaline Phosphatase 84 Total Protein 8.9 H Albumin 3.8 Globulin 5.1 H Albumin/Globulin Ratio Urine Color Yellow Urine Clarity Cloudy Urine pH 5.0 Ur Specific [place] 1.020 Urine Protein 100 H Urine Glucose (UA) Normal Urine Ketones 150 H Urine Occult Blood 25 H Urine Nitrite Negative Urine Bilirubin 3 H Urine Urobilinogen 1 H Ur Leukocyte Esterase 25 H Urine RBC 0-5 SEEN Urine WBC 0-5 SEEN Ur Squamous Epith Cells 5-10 SEEN Urine Bacteria 2+ Hyaline Casts 0-5 SEEN Urine Mucus 2+ 12/08/18 12/08/18 12/08/18 05:56 05:56 05:56 WBC 4.7 RBC 4.34 Hgb 13.5 Hct 40.0 MCV 92.2 MCH 31.1 MCHC 33.8 RDW 13.4 RDW Differential 44.5 H Plt Count 387 MPV 10.8 Immature Gran % (Auto) 1.300 H Neut % (Auto) 67.1 Lymph % (Auto) 17.5 L [place] % (Auto) 13.5 H Eos % (Auto) 0.2 Baso % (Auto) 0.4 Absolute Neuts (auto) 3.2 Absolute Lymphs (auto) 0.83 Total Counted Not Reportable Differential Comment SCANNED Sodium 131 L Potassium 3.2 L Chloride 86 L Carbon Dioxide 33.0 H Anion Gap 12 BUN 39 H Creatinine 0.83 Estim Creat Clear Calc 64.10 Est GFR (MDRD) Af Amer 89 Est GFR (MDRD) Non-Af 73 BUN/Creatinine Ratio 46.8 H Glucose 123 H Calcium 9.2 Phosphorus Magnesium 2.6 Total Bilirubin 0.50 Direct Bilirubin AST 17 ALT 23 Alkaline Phosphatase 74 Total Protein 7.9 Albumin 3.3 Globulin 4.6 H Albumin/Globulin Ratio 0.7 L Urine Color Urine Clarity Urine pH Ur Specific [place] Urine Protein Urine Glucose (UA) Urine Ketones Urine Occult Blood Urine Nitrite Urine Bilirubin Urine Urobilinogen Ur Leukocyte Esterase Urine RBC Urine WBC Ur Squamous Epith Cells Urine Bacteria Hyaline Casts Urine Mucus 12/08/18 12/08/18 05:56 09:26 WBC RBC Hgb Hct MCV MCH MCHC RDW RDW Differential Plt Count MPV Immature Gran % (Auto) Neut % (Auto) Lymph % (Auto) [place] % (Auto) Eos % (Auto) Baso % (Auto) Absolute Neuts (auto) Absolute Lymphs (auto) Total Counted Differential Comment Sodium 131 L Potassium 3.4 L Chloride 88 L Carbon Dioxide 34.0 H Anion Gap 9 BUN 41 H Creatinine 1.01 Estim Creat Clear Calc 52.68 Est GFR (MDRD) Af Amer 71 Est GFR (MDRD) Non-Af 59 L BUN/Creatinine Ratio 40.6 H Glucose 145 H Calcium 9.0 Phosphorus 4.1 Magnesium Total Bilirubin Direct Bilirubin AST ALT Alkaline Phosphatase Total Protein Albumin Globulin Albumin/Globulin Ratio Urine Color Urine Clarity Urine pH Ur Specific [place] Urine Protein Urine Glucose (UA) Urine Ketones Urine Occult Blood Urine Nitrite Urine Bilirubin Urine Urobilinogen Ur Leukocyte Esterase Urine RBC Urine WBC Ur Squamous Epith Cells Urine Bacteria Hyaline Casts Urine Mucus Assessment/Plan This patient was seen in conjunction with Dre PADILLA. I have independently interviewed and examined the patient and reviewed pertinent history, examination findings, laboratory and plan of management. I have reviewed the note and agree with the documented findings with the few additional points. In brief, patient is admitted for high-grade small bowel ileus/obstruction. This most probably precipitated by viral infection. Patient had good NG tube suction, 1800 mL bilious in nature. Denies nausea vomiting. Had a small amount of flatus but did not feel good bowel relief. Continue NG tube suction and IV fluid. I have discussed my assessment with Dre PADILLA and orders have been reviewed.
[2018-12-08 16:17] VITALS: BP 146/87; PULSE 97; RESP 18; TEMP 36.8; O2SAT 97
[2018-12-08] MEDS: 0.9% Normal Saline 1,000 ML 100 ML IV (16:39)
[2018-12-08 16:40] LABS: Potassium 3.3 mmol/L (3.5-5.1)
[2018-12-08 19:45] VITALS: BP 145/82; PULSE 98; RESP 16; TEMP 37.3; O2SAT 94
[2018-12-09] VITALS (11 sets, daily range): BP systolic 131–151; BP diastolic 66–88; PULSE 87–103; RESP 14–18; TEMP 36.5–37.3; O2SAT 92–98; BMI 24.9; BMI 25.0
[2018-12-09] MEDS: 0.9% Normal Saline 1,000 ML 100 ML IV (02:17)
[2018-12-09] MEDS: Heparin Injection (Vial) 5,000 UNIT/ML VIAL 5000 UNIT SC ×2 (04:48→21:05)
--- NOTE | 2018-12-09 05:10 | NURSING ---
Patient up and ambulating in hallway at this time.
[2018-12-09 07:18] LABS: Hematocrit 37.4 % (37-47); Hemoglobin 12.3 g/dl (12.0-15.0); Mean Corp Hgb Conc 32.9 g/gl (32-36); Mean Corpuscular Hgb 31.3 pg (27.0-32.0); Mean Corpuscular Volume 95.2 fL (81-99); Mean Platelet Vol. 10.7 fl (6.2-12.0); Platelet Count 388 K/mm3 (150-450); RBC Distribution Width CV 13.7 % (11.6-14.6); RBC Distribution Width SD 45.6 fl (35.1-43.9); Red Blood Count 3.93 M/mm3 (4.2-5.4); White Blood Count 11.3 K/mm3 (4.4-11.0)
[2018-12-09 07:19] LABS: Differential Indicated MANUAL DIFF; POSITIVE COUNT YES; POSITIVE DIFFERENTIAL NO; POSITIVE MORPHOLOGY YES
[2018-12-09 07:33] LABS: Anion Gap 11 (5-15); BUN 31 mg/dL (7-18); BUN/Creat Ratio 51.4 RATIO (10-20); Calcium,Total 8.1 mg/dL (8.5-10.1); Chloride 95 mmol/L (98-107); EST Glomerular Filtration Rate 106 mL/min (>60); Est Glom Filt Rate - Afr Amer 129 mL/min (>60); Estimated Creatinine Clearance 88.68 ml/min; Glucose 94 mg/dL (74-106); Potassium 3.3 mmol/L (3.5-5.1); Sodium Level 132 mmol/L (136-145)
[2018-12-09 08:02] LABS: Lymphocyte 11 % (19-41); Metamyelocyte 1 % (0-1); Monocyte 8 % (0-10); Neutrophil-Band 5 % (0-5); Neutrophil-Segmented 74 % (47-70); Plasma Cell 1 %; Total Cells Counted 100 (MANUAL DIFF)
[2018-12-09 08:03] LABS: Absolute Neutrophil Count 8.9 X10^3/uL (2.0-7.7); Platelet Estimate ADEQUATE (ADEQ); Red Cell Morphology NORM C+C NORMAL (NORM C&C)
[2018-12-09 09:12] LABS: Magnesium 2.6 mg/dL (1.6-2.6)
--- NOTE | 2018-12-09 09:40 | RAD_ITS ---
STUDY: X-RAY - ABDOMEN/PELVIS REASON FOR EXAM: Female, 63 years old. Nasogastric tube placement. TECHNIQUE: Single AP view of the abdomen / pelvis. COMPARISON: Comparison is made with prior study dated December 08, 2018. FINDINGS: Normal visualized lung bases. The tip of a nasogastric tube is at the gastroesophageal junction. There are dilated loops of the small intestine with a non-distended colon consistent with a small bowel obstruction. The visualized liver, spleen and kidneys are grossly normal in size and morphology. Normal soft tissue structures. There are diffuse degenerative changes of the visualized lumbar spine. RAD/Abdomen Single View (Portable) IMPRESSION: The tip of the nasogastric tube is at the gastroesophageal junction. Small bowel obstruction. This has progressed as compared to prior study. Electronically Signed: Frank Ayala, at 13:44 EDT , Service support ,
[2018-12-09] MEDS: Potassium Chloride 10mEq/100mL 10 MEQ/100 ML IV.SOLN. 100 MEQ IV BOLUS ×4 (10:08→17:00)
--- NOTE | 2018-12-09 10:59 | CASEMGMT ---
RN CM PROP SETTER CM to room to meet with patient for initial transition planning/care coordination assessment. WILEY BERUMEN introduced self and role at [facility]. Pt voices understanding and consents to assessment at this time. Pt resting in bed in no distress at this time. Pt is A/O at this time and answers all questions appropriately. Care providers, pharmacy, and demographics verified/updated at this time. PCP: No PCP. Was seeing Dr Araujo but has not continued to see him since moved to [place]. Given list of local Physicians. Specialists: Denies Preferred Pharmacy: [facility] Retail Insurance: MMO Prescription Benefit: Yes Living Will/HPOA: Pt does not currently have LW/HCPOA. States plans to complete this paperwork @ attorneys office soon. Pt made aware that she can contact as an out-pt and make appt in the future if she decides she would like to talk with someone about this or would like to utilize [facility] social work for advanced directive completion. Given [employer] card with information and contact number. Pt expresses understanding. LNOK: Living Arrangements: [place] Denies difficulty with stairs. Independent. Transportation: Pt states drives self and states no transportation concerns at this time. able to drive on d/c DME: States has the following DME: shower chair Pt states no need for further DME at this time. HHC/SNF: No hx of either, denies needs and no needs identified. Pt wishes to return home and states has no concerns with going home at time of discharge. Pt is a retired pharmacist. CM to follow for any further discharge planning/needs. Pt voices no further concerns/needs at this time. Advised pt to ask for CM if any further questions/concerns/needs arise. Voices understanding. PLAN: Home with family support. No needs identified. Liliam OCONNELL RN, CM
--- NOTE | 2018-12-09 11:21 | PCM.PN.SRG ---
Patient Problems: Active and Suspected Problems (Last Updated 12/08/18 @ 03:00 by Frank Jacobson MD) Small bowel obstruction (Acute) Hyponatremia (Acute) Hypokalemia (Acute) Denies any previous medical history. (Acute) Subjective: Patient evaluated sitting comfortably in bed. Patient denies nausea, vomiting. Patient has not had any more flatus. She denies bowel movement. - Physical Exam General: Alert, Oriented x3, Cooperative HEENT: - - NG tube- intact Abdomen: Non Tender, Hypoactive Bowel Sounds, Distended Vital Signs Temp Pulse Resp BP Pulse Ox 98.1 F 101 H 18 145/77 H 92 12/09/18 09:15 12/09/18 09:15 12/09/18 09:15 12/09/18 09:15 12/09/18 09:15 Oxygen Delivery Method Room Air Weight: 154 lb 5.177 oz Body Mass Index (BMI) 25.0 Intake and Output for Last 24 Hours 12/07/18 12/08/18 12/09/18 23:59 23:59 23:59 Intake Total 3752 / 3752 676 / 676 Output Total 4100 / 4100 175 / 175 Balance -348 / -348 501 / 501 Laboratory Tests Past 24 Hrs 12/08/18 12/09/18 12/09/18 16:15 06:33 06:33 WBC 11.3 H RBC 3.93 L Hgb 12.3 Hct 37.4 MCV 95.2 MCH 31.3 MCHC 32.9 RDW 13.7 RDW Differential 45.6 H Plt Count 388 MPV 10.7 Neut % (Auto) Not Reportable Absolute Neuts (auto) 8.9 H Absolute Lymphs (auto) 1.20 Total Counted 100 Neutrophils % (Manual) 74 H Band Neutrophils % 5 Lymphocytes % (Manual) 11 L Monocytes % (Manual) 8 Metamyelocytes % 1 Plasma Cell % (Manual) 1 Diff Path Review May foll Platelet Estimate ADEQUATE RBC Morphology NORM C+C Sodium 132 L Potassium 3.3 L 3.3 L Chloride 95 L Carbon Dioxide 26.0 Anion Gap 11 BUN 31 H Creatinine 0.60 Estim Creat Clear Calc 88.68 Est GFR (MDRD) Af Amer 129 Est GFR (MDRD) Non-Af 106 BUN/Creatinine Ratio 51.4 H Glucose 94 Calcium 8.1 L Magnesium 12/09/18 06:33 WBC RBC Hgb Hct MCV MCH MCHC RDW RDW Differential Plt Count MPV Neut % (Auto) Absolute Neuts (auto) Absolute Lymphs (auto) Total Counted Neutrophils % (Manual) Band Neutrophils % Lymphocytes % (Manual) Monocytes % (Manual) Metamyelocytes % Plasma Cell % (Manual) Diff Path Review Platelet Estimate RBC Morphology Sodium Potassium Chloride Carbon Dioxide Anion Gap BUN Creatinine Estim Creat Clear Calc Est GFR (MDRD) Af Amer Est GFR (MDRD) Non-Af BUN/Creatinine Ratio Glucose Calcium Magnesium 2.6 Medical Necessity - Tobacco Use Smoking Status: Former smoker Tobacco Use: Cigarettes Assessment/Plan All Active Problems (Last Updated 12/08/18 @ 03:00 by Frank Jacobson MD) Small bowel obstruction (Acute) Hyponatremia (Acute) Hypokalemia (Acute) Denies any previous medical history. (Acute) I am following this patient in conjunction with Dr. Gupta Small bowel obstruction Continue NG tube Replace potassium Continued ambulation May chew gum or suck on hard candy If no progress, Dr. Gupta will consider taking the patient to surgery for possible exploratory tomorrow. We will continue to monitor this patient. Code Visit Inpatient E&M: 44609 Subs Hosp L1
--- NOTE | 2018-12-09 11:37 | EKG12_ITS ---
Test Reason : PRE OP Blood Pressure : / mmHG Vent. Rate : 099 BPM Atrial Rate : 099 BPM P-R Int : 132 ms QRS Dur : 084 ms QT Int : 372 ms P-R-T Axes : 051 053 016 degrees QTc Int : 477 ms Normal sinus rhythm Nonspecific ST abnormality Abnormal ECG No previous ECGs available Confirmed by ALE HAQ, CINTIA ([id number]), manuscript editor JAMIE JULIAN ([id number]) on 12/12/2018 1:57:21 PM Referred By: Juan Alberto Gupta Confirmed By:CINTIA AGUILERA MD
[2018-12-09 12:33] LABS: Partial Thromboplast Time 30.7 Seconds (24.1-36.2)
[2018-12-09 12:39] LABS: Pathologist Review Reviewed
--- NOTE | 2018-12-09 13:19 | PN_ITS ---
<Dre Ruiz - Last Filed: 12/09/18 13:16> Patient Problems: Active and Suspected Problems (Last Updated 12/08/18 @ 03:00 by Frank Jacobson MD) Small bowel obstruction (Acute) Hyponatremia (Acute) Hypokalemia (Acute) Denies any previous medical history. (Acute) Subjective: No N/V today. Very small amount of flatus. No BM. Mild diffuse abdominal discomfort, positional. Pt is ambulating. No fever/chills. - Physical Exam General: Alert, Oriented x3, Cooperative HEENT: Atraumatic, PERRLA, EOMI, Normocephalic Neck: Supple, No JVD, Negative Carotid Bruits Lungs: Clear to auscultation, Normal air movement Cardiovascular: Regular rate, No murmurs Abdomen: Soft, Non Tender, Bowel Sounds Not Present Extremities: No edema, Capillary Refill Less than 3 Seconds Skin: No rashes, No breakdown Musculoskeletal: No Tenderness to Palpation of Joints or Extremities Neurological: Cranial nerves II-XII grossly intact Psych/Mental Status: Normal Affect, Appropriate, Alert and oriented to time, place, person, mood and affect Vital Signs Temp Pulse Resp BP Pulse Ox 98.1 F 101 H 18 145/77 H 92 12/09/18 09:15 12/09/18 09:15 12/09/18 09:15 12/09/18 09:15 12/09/18 09:15 Oxygen Delivery Method Room Air Weight: 154 lb 5.177 oz Body Mass Index (BMI) 24.9 Intake and Output for Last 24 Hours 12/07/18 12/08/18 12/09/18 23:59 23:59 23:59 Intake Total 3752 / 3752 676 / 676 Output Total 4100 / 4100 175 / 175 Balance -348 / -348 501 / 501 Laboratory Tests Past 24 Hrs 12/08/18 12/09/18 12/09/18 16:15 06:33 06:33 WBC 11.3 H RBC 3.93 L Hgb 12.3 Hct 37.4 MCV 95.2 MCH 31.3 MCHC 32.9 RDW 13.7 RDW Differential 45.6 H Plt Count 388 MPV 10.7 Neut % (Auto) Not Reportable Absolute Neuts (auto) 8.9 H Absolute Lymphs (auto) 1.20 Total Counted 100 Neutrophils % (Manual) 74 H Band Neutrophils % 5 Lymphocytes % (Manual) 11 L Monocytes % (Manual) 8 Metamyelocytes % 1 Plasma Cell % (Manual) 1 Diff Path Review Reviewed Platelet Estimate ADEQUATE RBC Morphology NORM C+C APTT Sodium 132 L Potassium 3.3 L 3.3 L Chloride 95 L Carbon Dioxide 26.0 Anion Gap 11 BUN 31 H Creatinine 0.60 Estim Creat Clear Calc 88.68 Est GFR (MDRD) Af Amer 129 Est GFR (MDRD) Non-Af 106 BUN/Creatinine Ratio 51.4 H Glucose 94 Calcium 8.1 L Magnesium 12/09/18 12/09/18 06:33 11:55 WBC RBC Hgb Hct MCV MCH MCHC RDW RDW Differential Plt Count MPV Neut % (Auto) Absolute Neuts (auto) Absolute Lymphs (auto) Total Counted Neutrophils % (Manual) Band Neutrophils % Lymphocytes % (Manual) Monocytes % (Manual) Metamyelocytes % Plasma Cell % (Manual) Diff Path Review Platelet Estimate RBC Morphology APTT 30.7 Sodium Potassium Chloride Carbon Dioxide Anion Gap BUN Creatinine Estim Creat Clear Calc Est GFR (MDRD) Af Amer Est GFR (MDRD) Non-Af BUN/Creatinine Ratio Glucose Calcium Magnesium 2.6 Medical Necessity - Tobacco Use Smoking Status: Former smoker Tobacco Use: Cigarettes Assessment/Plan All Active Problems (Last Updated 12/08/18 @ 03:00 by Frank Jacobson MD) Small bowel obstruction (Acute) Hyponatremia (Acute) Hypokalemia (Acute) Denies any previous medical history. (Acute) 1. SBO - as per Gen Surgery. Improving. NG in place. To OR today. KUB pending. WBC inc. Mild tachy. 2. Hyponatremia, hypokalemia - improved,continue to replete K. mag still normal. 3. Dehydration - continue IVF, 0.9% NaCl. DVT ppx: heparin Thank you for the opportunity to participate in the care of this patient This patient was seen by Dre Ruiz PA-C under the supervision of Doctor Rc. <Prateek Tatum - Last Filed: 12/09/18 13:47> Subjective: Patient is still has abdominal discomfort and distention. Did not good or adequate flatus passage or bowel movement. Has NG tube with bilious aspirate. 2700 mL NG aspirate yesterday. - Physical Exam General: Alert, Oriented x3, Cooperative HEENT: Atraumatic, PERRLA, EOMI, Normocephalic Neck: Supple, No JVD, Negative Carotid Bruits Lungs: Clear to auscultation, Normal air movement, No rhonchi, No wheeze, No rales Cardiovascular: Regular rate, Regular Rhythm, Normal S1, Normal S2, No murmurs Abdomen: Soft, Non Tender, Bowel Sounds Not Present, Hypoactive Bowel Sounds Extremities: No edema, Capillary Refill Less than 3 Seconds Skin: No rashes, No breakdown Musculoskeletal: No Tenderness to Palpation of Joints or Extremities Neurological: Cranial nerves II-XII grossly intact, Deep Tendon Reflexes 2+/4 and Symmetrical, Neuro grossly intact, Motor Exam 5/5 strength throughout Psych/Mental Status: Normal Affect, Appropriate Vital Signs Temp Pulse Resp BP Pulse Ox 98.1 F 101 H 18 145/77 H 92 12/09/18 09:15 12/09/18 09:15 12/09/18 09:15 12/09/18 09:15 12/09/18 09:15 Oxygen Delivery Method Room Air Weight: 154 lb 5.177 oz Body Mass Index (BMI) 24.9 Intake and Output for Last 24 Hours 12/07/18 12/08/18 12/09/18 23:59 23:59 23:59 Intake Total 3752 / 3752 676 / 676 Output Total 4100 / 4100 175 / 175 Balance -348 / -348 501 / 501 Laboratory Tests Past 24 Hrs 12/08/18 12/09/18 12/09/18 16:15 06:33 06:33 WBC 11.3 H RBC 3.93 L Hgb 12.3 Hct 37.4 MCV 95.2 MCH 31.3 MCHC 32.9 RDW 13.7 RDW Differential 45.6 H Plt Count 388 MPV 10.7 Neut % (Auto) Not Reportable Absolute Neuts (auto) 8.9 H Absolute Lymphs (auto) 1.20 Total Counted 100 Neutrophils % (Manual) 74 H Band Neutrophils % 5 Lymphocytes % (Manual) 11 L Monocytes % (Manual) 8 Metamyelocytes % 1 Plasma Cell % (Manual) 1 Diff Path Review Reviewed Platelet Estimate ADEQUATE RBC Morphology NORM C+C APTT Sodium 132 L Potassium 3.3 L 3.3 L Chloride 95 L Carbon Dioxide 26.0 Anion Gap 11 BUN 31 H Creatinine 0.60 Estim Creat Clear Calc 88.68 Est GFR (MDRD) Af Amer 129 Est GFR (MDRD) Non-Af 106 BUN/Creatinine Ratio 51.4 H Glucose 94 Calcium 8.1 L Magnesium 12/09/18 12/09/18 06:33 11:55 WBC RBC Hgb Hct MCV MCH MCHC RDW RDW Differential Plt Count MPV Neut % (Auto) Absolute Neuts (auto) Absolute Lymphs (auto) Total Counted Neutrophils % (Manual) Band Neutrophils % Lymphocytes % (Manual) Monocytes % (Manual) Metamyelocytes % Plasma Cell % (Manual) Diff Path Review Platelet Estimate RBC Morphology APTT 30.7 Sodium Potassium Chloride Carbon Dioxide Anion Gap BUN Creatinine Estim Creat Clear Calc Est GFR (MDRD) Af Amer Est GFR (MDRD) Non-Af BUN/Creatinine Ratio Glucose Calcium Magnesium 2.6 Assessment/Plan This patient was seen in conjunction with Dre PADILLA. I have independently inter viewed and examined the patient and reviewed pertinent history, examination findings, laboratory and plan of management. I have reviewed the note and agree with the documented findings with the few additional points. In brief, patient is admitted for high-grade small bowel ileus/obstruction. This most probably precipitated by viral infection. Patient had good NG tube suction, 2700 mL bilious in nature. Denies nausea vomiting. The patient failed conservative management and plan is to take her for exploratory laparoscopy possible laparotomy. Repeat KUB did not show improvement. Surgeon note and follow-up reviewed I have discussed my assessment with Dre PADILLA and orders have been reviewed. Code Visit Inpatient E&M: 30500 Subs Hosp L2
--- NOTE | 2018-12-09 14:10 | NURSING ---
Report given to Miri in [facility].
[2018-12-09] MEDS: Bupivacaine Mpf 0.5% 30 ML VIAL (15:00)
--- NOTE | 2018-12-09 16:01 | OP.PCM_ITS ---
Problem List (1) Small bowel obstruction Status: Acute Report of Operation Date of Procedure: 12/09/18 Pre-Operative Diagnosis: Small bowel obstruction Post-Operative Diagnosis: Same Type of Anesthesia:: General Anesthesiologist: Any Hrermann Drains: 15 round Pasha-Alejo drain Estimated Blood Loss (mL): < 25 cc Fluids Replaced: 1 l lr Description of Procedure: Patient was brought into the operating room. Placed in the supine position. Under excellent general trach intubation Scott catheter was placed the abdomen was sterilely prepped and draped in the usual fashion. Local was injected supraumbilically. Dissection was carried down the fascia was grasped with Maciej varies needle was placed inside the abdomen the abdomen was insufflated to 15 torr a 10/12 trocar was placed without difficulty. It was flank by 2 #5 trochars placed under direct visualization and a suprapubic #5 trocar which was placed under direct visualization placed the patient in the headdown and rotated to the left position. The patient was noted to have a normal cecum and normal appendix I then started at the terminal ileum started to run the small bowel and ran into an abscess that appeared to be coming from the sigmoid colon which was draped to the right lower side of the pelvis. I detached the small bowel entered a large abscess cavity irrigated this out with 2 L of irrigation and then ran the small bowel until I came to where the dilated portion of this was I did not run the complete small bowel because the proximal bowel was so dilated I was afraid I would cause injury to the small bowel. It was very apparent that this was a diverticular abscess most likely and I made a determination since it was so socked into the pelvis on the right side that I did not want to do a sigmoid colon resection with a [id number] anastomosis I was afraid I was going to get into too much bleeding and I thought the safest thing to do was just leave a drain in and treat her like a diverticular abscess and then hopefully later be able to take her to surgery for a 1 stage operation. I placed a 15 round Pasha-Alejo drain through the right trocar port I sutured it in place with a 3-0 nylon. I placed the drain in the area of the abscess. I retrieved all the irrigant that I could I remove the trochars under direct visualization. I closed the fascia the umbilical port with a [id number] stitch of 0 Vicryl skin incisions were closed with subcuticular stitches of 4-0 Monocryl. Steri-S trips were applied sterile dressings were applied and the patient tolerated the procedure well. - Admit VTE Documentation VTE Present on Admission: No VTE Mechan Device Prophylaxis: SCD's VTE Pharm Prophylaxis ordered?: No Reason prophylaxis not ordered:: Treatment Not Indicated
[2018-12-09 19:20] LABS: Potassium 3.9 mmol/L (3.5-5.1)
[2018-12-09] MEDS: HYDROmorphone 1 MG/ML Syringe IV (19:32)
[2018-12-09] MEDS: 0.9% NaCl Peripheral Flush Adult/Peds IV (21:05)
[2018-12-09] MEDS: Lactated Ringers 1,000 ML 150 ML IV (21:54)
[2018-12-10 04:40] VITALS: BP 145/63; PULSE 97; RESP 18; TEMP 37.1; O2SAT 92
[2018-12-10] MEDS: Lactated Ringers 1,000 ML 150 ML IV ×3 (04:42→18:41)
[2018-12-10] MEDS: HYDROmorphone 1 MG/ML Syringe IV ×2 (05:36→21:00)
[2018-12-10] MEDS: Heparin Injection (Vial) 5,000 UNIT/ML VIAL 5000 UNIT SC ×3 (05:36→21:00)
[2018-12-10 06:38] LABS: Hematocrit 38.5 % (37-47); Hemoglobin 12.4 g/dl (12.0-15.0); Mean Corp Hgb Conc 32.2 g/gl (32-36); Mean Corpuscular Hgb 30.5 pg (27.0-32.0); Mean Corpuscular Volume 94.8 fL (81-99); Mean Platelet Vol. 10.1 fl (6.2-12.0); Platelet Count 442 K/mm3 (150-450); RBC Distribution Width CV 13.9 % (11.6-14.6); Red Blood Count 4.06 M/mm3 (4.2-5.4)
[2018-12-10 06:39] LABS: POSITIVE COUNT YES; POSITIVE DIFFERENTIAL NO; POSITIVE MORPHOLOGY YES
[2018-12-10 06:40] LABS: Differential Indicated MANUAL DIFF
[2018-12-10 06:53] LABS: ALB/GLOB Ratio 0.6 RATIO (0.9-2.4); AST(SGOT) 12 U/L (15-37); Alanine Aminotransfer ALT/SGPT 17 U/L (13-56); Albumin, Serum 2.4 g/dL (3.2-5.0); Alkaline Phosphatase 66 U/L (45-117); Anion Gap 12 (5-15); BUN 21 mg/dL (7-18); BUN/Creat Ratio 37.7 RATIO (10-20); Chloride 100 mmol/L (98-107); Creatinine, Serum 0.56 mg/dL (0.55-1.02); EST Glomerular Filtration Rate 116 mL/min (>60); Est Glom Filt Rate - Afr Amer 141 mL/min (>60); Estimated Creatinine Clearance 95.01 ml/min; Globulin 3.7 g/dL (2.2-4.2); Glucose 113 mg/dL (74-106); Potassium 3.9 mmol/L (3.5-5.1); Protein, Total 6.1 g/dL (6.4-8.2); Sodium Level 138 mmol/L (136-145)
[2018-12-10 06:59] LABS: Blast 1 % (0-0); Lymphocyte 17 % (19-41); Metamyelocyte 3 % (0-1); Monocyte 3 % (0-10); Neutrophil-Band 3 % (0-5); Neutrophil-Segmented 73 % (47-70); Total Cells Counted 100 (MANUAL DIFF)
[2018-12-10 07:00] LABS: Platelet Estimate ADEQUATE (ADEQ); Platelet Morphology LARGE; Red Cell Morphology NORM C+C NORMAL (NORM C&C)
[2018-12-10 07:01] LABS: Absolute Lymphocyte Count 2.38 X10^3/ul (0.83-4.51); Absolute Neutrophil Count 10.6 X10^3/uL (2.0-7.7)
--- NOTE | 2018-12-10 07:58 | PCM.PN.SRG ---
Patient Problems: Active and Suspected Problems (Last Updated 12/08/18 @ 03:00 by Frank Jacobson MD) Small bowel obstruction (Acute) Hyponatremia (Acute) Hypokalemia (Acute) Denies any previous medical history. (Acute) Subjective: Patient evaluated resting comfortably in a chair. Patient denies nausea, vomiting. She denies flatus, BM. She notes minimal amount of pain/discomfort. - Physical Exam General: Alert, Oriented x3, Cooperative Abdomen: Hypoactive Bowel Sounds, Distended, Tender - RLQ, - - CAT drain is intact with bloody/milky drainage noted. Incisions c/d/i. No erythema or infection noted. Vital Signs Temp Pulse Resp BP Pulse Ox 98.8 F 97 18 145/63 H 92 12/10/18 04:40 12/10/18 04:40 12/10/18 04:40 12/10/18 04:40 12/10/18 04:40 Oxygen Delivery Method Room Air Weight: 154 lb 5.177 oz Body Mass Index (BMI) 24.9 Intake and Output for Last 24 Hours 12/08/18 12/09/18 12/10/18 23:59 23:59 23:59 Intake Total 3752 / 3752 3249 / 3249 1091 / 1091 Output Total 4100 / 4100 2555 / 2555 420 / 420 Balance -348 / -348 694 / 694 671 / 671 Laboratory Tests Past 24 Hrs 12/09/18 12/09/18 12/09/18 06:33 06:33 11:55 WBC RBC Hgb Hct MCV MCH MCHC RDW RDW Differential Plt Count MPV Neut % (Auto) Absolute Neuts (auto) 8.9 H Absolute Lymphs (auto) 1.20 Total Counted 100 Neutrophils % (Manual) 74 H Band Neutrophils % 5 Lymphocytes % (Manual) 11 L Monocytes % (Manual) 8 Metamyelocytes % 1 Blast Cells % Plasma Cell % (Manual) 1 Diff Path Review Reviewed Platelet Estimate ADEQUATE Plt Morphology Comment RBC Morphology NORM C+C APTT 30.7 Sodium Potassium Chloride Carbon Dioxide Anion Gap BUN Creatinine Estim Creat Clear Calc Est GFR (MDRD) Af Amer Est GFR (MDRD) Non-Af BUN/Creatinine Ratio Glucose Calcium Magnesium 2.6 Total Bilirubin AST ALT Alkaline Phosphatase Total Protein Albumin Globulin Albumin/Globulin Ratio 12/09/18 12/10/1812/10/19 18:40 06:10 06:10 WBC 14.0 H RBC 4.06 L Hgb 12.4 Hct 38.5 MCV 94.8 MCH 30.5 MCHC 32.2 RDW 13.9 RDW Differential 46.0 H Plt Count 442 MPV 10.1 Neut % (Auto) Not Reportable Absolute Neuts (auto) 10.6 H Absolute Lymphs (auto) 2.38 Total Counted 100 Neutrophils % (Manual) 73 H Band Neutrophils % 3 Lymphocytes % (Manual) 17 L Monocytes % (Manual) 3 Metamyelocytes % 3 H Blast Cells % 1 H* Plasma Cell % (Manual) Diff Path Review May foll Platelet Estimate ADEQUATE Plt Morphology Comment LARGE RBC Morphology NORM C+C APTT Sodium 138 Potassium 3.9 3.9 Chloride 100 Carbon Dioxide 26.0 Anion Gap 12 BUN 21 H Creatinine 0.56 Estim Creat Clear Calc 95.01 Est GFR (MDRD) Af Amer 141 Est GFR (MDRD) Non-Af 116 BUN/Creatinine Ratio 37.7 H Glucose 113 H Calcium 8.0 L Magnesium Total Bilirubin 0.40 AST 12 L ALT 17 Alkaline Phosphatase 66 Total Protein 6.1 L Albumin 2.4 L Globulin 3.7 Albumin/Globulin Ratio 0.6 L Medical Necessity - Tobacco Use Smoking Status: Former smoker Tobacco Use: Cigarettes Assessment/Plan All Active Problems (Last Updated 12/08/18 @ 03:00 by Frank Jacobson MD) Small bowel obstruction (Acute) Hyponatremia (Acute) Hypokalemia (Acute) Denies any previous medical history. (Acute) I am following this patient in conjunction with Dr. Gupta Small bowel obstruction. S/p exploratory laparoscopy with diverticular abscess drainage. No resection. Continue NG tube Continued ambulation May chew gum or suck on hard candy D/C Scott We will continue to monitor this patient Code Visit Inpatient E&M: 16101 Subs Hosp L1 - No charge
[2018-12-10 10:15] VITALS: BP 121/71; PULSE 96; RESP 16; TEMP 37.2; O2SAT 93
--- NOTE | 2018-12-10 14:04 | PCM.PROGNOTE ---
<Dre Ruiz - Last Filed: 12/10/18 14:04> Patient Problems: Active and Suspected Problems (Last Updated 12/08/18 @ 03:00 by Frank Jacobson MD) Small bowel obstruction (Acute) Hyponatremia (Acute) Hypokalemia (Acute) Denies any previous medical history. (Acute) Subjective: Patient is resting comfortably in bed no acute distress. She has a drain in place that is draining light red, clear. No fevers or chills. No abdominal pain this morning. No nausea or vomiting. NG tube in place. She is tolerating ice chips. No flatus this morning. No bowel activity. - Physical Exam General: Alert, Oriented x3, Cooperative HEENT: Atraumatic, PERRLA, EOMI, Normocephalic Neck: Supple, No JVD, Negative Carotid Bruits Lungs: Clear to auscultation, Normal air movement Cardiovascular: Regular rate, No murmurs Abdomen: Bowel Sounds Present, Soft, Non Tender Extremities: No edema, Capillary Refill Less than 3 Seconds Skin: No rashes, No breakdown Musculoskeletal: No Tenderness to Palpation of Joints or Extremities Neurological: Cranial nerves II-XII grossly intact Psych/Mental Status: Normal Affect, Appropriate, Alert and oriented to time, place, person, mood and affect Vital Signs Temp Pulse Resp BP Pulse Ox 98.9 F 96 16 121/71 H 93 12/10/18 10:15 12/10/18 10:15 12/10/18 10:15 12/10/18 10:15 12/10/18 10:15 Oxygen Delivery Method Room Air Weight: 154 lb 5.177 oz Body Mass Index (BMI) 24.9 Intake and Output for Last 24 Hours 12/08/18 12/09/18 12/10/18 23:59 23:59 23:59 Intake Total 3752 / 3752 3249 / 3249 2390 / 2390 Output Total 4100 / 4100 2555 / 2555 1225 / 1225 Balance -348 / -348 694 / 694 1165 / 1165 Laboratory Tests Past 24 Hrs 12/09/18 12/10/18 12/10/18 18:40 06:10 06:10 WBC 14.0 H RBC 4.06 L Hgb 12.4 Hct 38.5 MCV 94.8 MCH 30.5 MCHC 32.2 RDW 13.9 RDW Differential 46.0 H Plt Count 442 MPV 10.1 Neut % (Auto) Not Reportable Absolute Neuts (auto) 10.6 H Absolute Lymphs (auto) 2.38 Total Counted 100 Neutrophils % (Manual) 73 H Band Neutrophils % 3 Lymphocytes % (Manual) 17 L Monocytes % (Manual) 3 Metamyelocytes % 3 H Blast Cells % 1 H* Diff Path Review May foll Platelet Estimate ADEQUATE Plt Morphology Comment LARGE RBC Morphology NORM C+C Sodium 138 Potassium 3.9 3.9 Chloride 100 Carbon Dioxide 26.0 Anion Gap 12 BUN 21 H Creatinine 0.56 Estim Creat Clear Calc 95.01 Est GFR (MDRD) Af Amer 141 Est GFR (MDRD) Non-Af 116 BUN/Creatinine Ratio 37.7 H Glucose 113 H Calcium 8.0 L Total Bilirubin 0.40 AST 12 L ALT 17 Alkaline Phosphatase 66 Total Protein 6.1 L Albumin 2.4 L Globulin 3.7 Albumin/Globulin Ratio 0.6 L Medical Necessity - Tobacco Use Smoking Status: Former smoker Tobacco Use: Cigarettes Assessment/Plan All Active Problems (Last Updated 12/08/18 @ 03:00 by Frank Jacobson MD) Small bowel obstruction (Acute) Hyponatremia (Acute) Hypokalemia (Acute) Denies any previous medical history. (Acute) 1. SBO, complicated by diverticular abscess- as per Gen Surgery. Taken to the OR for laparoscopy yesterday, abscess found and drained, drain placed. Started on Zosyn last night. WBCs have blast elevated. Continue antibiotics. NG in place. KUB pending. 2. Hyponatremia, hypokalemia -resolved. 3. Dehydration - continue IVF, 0.9% NaCl. DVT ppx: heparin Thank you for the opportunity to participate in the care of this patient This patient was seen by Dre Ruiz PA-C under the supervision of Doctor Tatum. <Prateek Tatum - Last Filed: 12/10/18 17:16> Subjective: Seen and examined. Patient is on recliner. Patient has NG tube. Patient had laparotomy on 12/09 and has CAT drain left the right iliac region abscess cavity. Draining serosanguineous in CAT drain. No fever/chills. No tachycardia or tachypnea. No hypoxia. - Physical Exam General: Alert, Oriented x3, Cooperative HEENT: Atraumatic, PERRLA, EOMI, Normocephalic Neck: Supple, No JVD, Negative Carotid Bruits Lungs: Clear to auscultation, Normal air movement, No rhonchi, No wheeze Cardiovascular: Regular rate, Regular Rhythm, Normal S1, Normal S2, No murmurs Abdomen: Bowel Sounds Present, Soft, Non Tender, Hypoactive Bowel Sounds, Tender - Mild tenderness in right lower quadrant in operative site. Extremities: No edema, Capillary Refill Less than 3 Seconds Skin: No rashes, No breakdown Musculoskeletal: No Tenderness to Palpation of Joints or Extremities Neurological: Cranial nerves II-XII grossly intact, Deep Tendon Reflexes 2+/4 and Symmetrical, Neuro grossly intact, Motor Exam 5/5 strength throughout Psych/Mental Status: Normal Affect, Appropriate Vital Signs Temp Pulse Resp BP Pulse Ox 97.8 F 93 18 119/65 93 12/10/18 16:16 12/10/18 16:16 12/10/18 16:16 12/10/18 16:16 12/10/18 16:16 Oxygen Delivery Method Room Air Weight: 154 lb 5.177 oz Body Mass Index (BMI) 24.9 Intake and Output for Last 24 Hours 12/08/18 12/09/18 12/10/18 23:59 23:59 23:59 Intake Total 3752 / 3752 3249 / 3249 2540 / 2540 Output Total 4100 / 4100 2555 / 2555 1845 / 1845 Balance -348 / -348 694 / 694 695 / 695 Laboratory Tests Past 24 Hrs 12/09/18 12/10/18 12/10/18 18:40 06:10 06:10 WBC 14.0 H RBC 4.06 L Hgb 12.4 Hct 38.5 MCV 94.8 MCH 30.5 MCHC 32.2 RDW 13.9 RDW Differential 46.0 H Plt Count 442 MPV 10.1 Neut % (Auto) Not Reportable Absolute Neuts (auto) 10.6 H Absolute Lymphs (auto) 2.38 Total Counted 100 Neutrophils % (Manual) 73 H Band Neutrophils % 3 Lymphocytes % (Manual) 17 L Monocytes % (Manual) 3 Metamyelocytes % 3 H Blast Cells % 1 H* Diff Path Review Reviewed Platelet Estimate ADEQUATE Plt Morphology Comment LARGE RBC Morphology NORM C+C Sodium 138 Potassium 3.9 3.9 Chloride 100 Carbon Dioxide 26.0 Anion Gap 12 BUN 21 H Creatinine 0.56 Estim Creat Clear Calc 95.01 Est GFR (MDRD) Af Amer 141 Est GFR (MDRD) Non-Af 116 BUN/Creatinine Ratio 37.7 H Glucose 113 H Calcium 8.0 L Total Bilirubin 0.40 AST 12 L ALT 17 Alkaline Phosphatase 66 Total Protein 6.1 L Albumin 2.4 L Globulin 3.7 Albumin/Globulin Ratio 0.6 L Assessment/Plan This patient was seen in conjunction with Dre PADILLA. I have independently interviewed and examined the patient and reviewed pertinent history, examination findings, laboratory and plan of management. I have reviewed the note and agree with the documented findings with the few additional points. In brief, patient is admitted for high-grade small bowel ileus/obstruction. Repeat KUB did not show improvement and therefore patient was taken to OR for non-resolving obstruction. Operative note reviewed. This found a large abscess cavity in the right iliac region that appeared to be coming from sigmoid colon. This was drained and CAT drain was left. It was decided to leave definitive surgery later on as a staged procedure as there is high risk of bleeding and bowel injury. Patient is on IV Zosyn. I have discussed my assessment with Dre PADILLA and orders have been reviewed. Code Visit Inpatient E&M: 91510 Subs Hosp L2
[2018-12-10 14:42] LABS: Pathologist Review Reviewed
[2018-12-10 16:16] VITALS: BP 119/65; PULSE 93; RESP 18; TEMP 36.6; O2SAT 93
[2018-12-10 22:00] VITALS: BP 134/73; PULSE 93; RESP 20; TEMP 37.3; O2SAT 93
[2018-12-10 23:34] VITALS: RESP 20
[2018-12-11] VITALS (7 sets, daily range): BP systolic 123–152; BP diastolic 68–86; PULSE 70–92; RESP 16–18; TEMP 36.9–37.4; O2SAT 92–98
[2018-12-11] MEDS: Lactated Ringers 1,000 ML 150 ML IV ×4 (01:25→21:55)
[2018-12-11] MEDS: HYDROmorphone 1 MG/ML Syringe IV ×2 (03:52→21:54)
[2018-12-11] MEDS: Heparin Injection (Vial) 5,000 UNIT/ML VIAL 5000 UNIT SC ×3 (06:01→21:49)
[2018-12-11 06:46] LABS: Hematocrit 34.7 % (37-47); Hemoglobin 11.2 g/dl (12.0-15.0); Mean Corp Hgb Conc 32.3 g/gl (32-36); Mean Corpuscular Hgb 30.8 pg (27.0-32.0); Mean Corpuscular Volume 95.3 fL (81-99); Mean Platelet Vol. 10.1 fl (6.2-12.0); Platelet Count 417 K/mm3 (150-450); RBC Distribution Width CV 14.2 % (11.6-14.6); RBC Distribution Width SD 47.1 fl (35.1-43.9); Red Blood Count 3.64 M/mm3 (4.2-5.4); White Blood Count 10.7 K/mm3 (4.4-11.0)
[2018-12-11 06:54] LABS: Differential Indicated MANUAL DIFF; POSITIVE COUNT YES; POSITIVE DIFFERENTIAL NO; POSITIVE MORPHOLOGY YES
[2018-12-11 07:26] LABS: Eosinophil 2 % (0-5); Lymphocyte 22 % (19-41); Metamyelocyte 4 % (0-1); Monocyte 1 % (0-10); Neutrophil-Band 9 % (0-5); Neutrophil-Segmented 62 % (47-70); Platelet Estimate ADEQUATE (ADEQ); Red Cell Morphology NORM C+C NORMAL (NORM C&C); Total Cells Counted 100 (MANUAL DIFF)
[2018-12-11 07:27] LABS: Reactive Lymphocyte RARE
[2018-12-11 07:28] LABS: Absolute Lymphocyte Count 2.35 X10^3/ul (0.83-4.51); Absolute Neutrophil Count 7.6 X10^3/uL (2.0-7.7)
--- NOTE | 2018-12-11 08:11 | PCM.PN.SRG ---
Patient Problems: Active and Suspected Problems (Last Updated 12/08/18 @ 03:00 by Frank Jacobson MD) Small bowel obstruction (Acute) Hyponatremia (Acute) Hypokalemia (Acute) Denies any previous medical history. (Acute) Subjective: Patient was evaluated resting comfortably in bed. She notes slightly more flatus. She notes abdominal discomfort. She denies nausea. Negative BM. She has been up and walking. - Physical Exam General: Alert, Oriented x3, Cooperative Neck: - - NG tube intact with light greenish drainage noted. Lungs: Clear to auscultation, Normal air movement Cardiovascular: Regular rate, No murmurs Abdomen: Hypoactive Bowel Sounds, Distended, Tender, - - Incisions c/d/i. No erythema or infection noted. CAT drain with SA fluid noted. Much more clear than yesterday. Vital Signs Temp Pulse Resp BP Pulse Ox 98.4 F 88 18 152/75 H 92 12/11/18 07:50 12/11/18 07:50 12/11/18 07:50 12/11/18 07:50 12/11/18 07:50 Oxygen Delivery Method Room Air Weight: 154 lb 5.177 oz Body Mass Index (BMI) 24.9 Intake and Output for Last 24 Hours 12/09/18 12/10/18 12/11/18 23:59 23:59 23:59 Intake Total 3249 / 3249 4887.7 / 4887.7 1318.1 / 1318.1 Output Total 2555 / 2555 3075 / 3075 565 / 565 Balance 694 / 694 1812.7 / 1812.7 753.1 / 753.1 Laboratory Tests Past 24 Hrs 12/10/18 12/11/18 06:10 05:50 WBC 10.7 RBC 3.64 L Hgb 11.2 L Hct 34.7 L MCV 95.3 MCH 30.8 MCHC 32.3 RDW 14.2 RDW Differential 47.1 H Plt Count 417 MPV 10.1 Neut % (Auto) Not Reportable Absolute Neuts (auto) 7.6 Absolute Lymphs (auto) 2.35 Total Counted 100 Neutrophils % (Manual) 62 Band Neutrophils % 9 H Lymphocytes % (Manual) 22 Monocytes % (Manual) 1 Eosinophils % (Manual) 2 Metamyelocytes % 4 H Diff Path Review Reviewed May foll Reactive Lymphocytes RARE Platelet Estimate ADEQUATE RBC Morphology NORM C+C Medical Necessity - Tobacco Use Smoking Status: Former smoker Tobacco Use: Cigarettes Assessment/Plan All Active Problems (Last Updated 12/08/18 @ 03:00 by Frank Jacobson MD) Small bowel obstruction (Acute) Hyponatremia (Acute) Hypokalemia (Acute) Denies any previous medical history. (Acute) I am following this patient in conjunction with Dr. Gupta Small bowel obstruction. S/p exploratory laparoscopy with diverticular abscess drainage. No resection. Continue NG tube Continued ambulation May chew gum or suck on hard candy. Ice chips. Will plan to follow-up as an outpatient to discuss elective colon resection We will continue to monitor this patient Code Visit Inpatient E&M: 67970 Subs Hosp L1 - Post-op/No charge
--- NOTE | 2018-12-11 12:39 | PN_ITS ---
Patient Problems: Active and Suspected Problems (Last Updated 12/08/18 @ 03:00 by Frank Jacobson MD) Small bowel obstruction (Acute) Hyponatremia (Acute) Hypokalemia (Acute) Denies any previous medical history. (Acute) Subjective: Patient still has NG tube. Patient did not had adequate flatus or bowel movement. Denies pain. Patient walked around the nursing station. Vitals/I&O's: Vital Signs Temp Pulse Resp BP Pulse Ox 98.4 F 88 18 152/75 H 92 12/11/18 07:50 12/11/18 07:50 12/11/18 07:50 12/11/18 07:50 12/11/18 07:50 Oxygen Delivery Method Room Air Weight: 154 lb 5.177 oz Body Mass Index (BMI) 24.9 Intake and Output for Last 24 Hours 12/09/18 12/10/18 12/11/18 23:59 23:59 23:59 Intake Total 3249 / 3249 4887.7 / 4887.7 1718.1 / 1718.1 Output Total 2555 / 2555 3075 / 3075 1215 / 1215 Balance 694 / 694 1812.7 / 1812.7 503.1 / 503.1 General: Alert, Oriented x3, Cooperative HEENT: Atraumatic, PERRLA, EOMI, Normocephalic Neck: Supple, No JVD, Negative Carotid Bruits Lungs: Clear to auscultation, Normal air movement, No rhonchi, No rales Cardiovascular: Regular rate, Regular Rhythm, Normal S1, Normal S2, No murmurs Abdomen: Bowel Sounds Present, Soft, Non Tender, Hypoactive Bowel Sounds, - - CAT drain has mainly serous fluid. Extremities: No edema, Capillary Refill Less than 3 Seconds Skin: No rashes, No breakdown Musculoskeletal: No Tenderness to Palpation of Joints or Extremities Neurological: Cranial nerves II-XII grossly intact Psych/Mental Status: Normal Affect, Appropriate Laboratory Results 12/10/18 06:10: Diff Path Review Reviewed 12/11/18 05:50: WBC 10.7, RBC 3.64 L, Hgb 11.2 L, Hct 34.7 L, MCV 95.3, MCH 30.8, MCHC 32.3, RDW 14.2, RDW Differential 47.1 H, Plt Count 417, MPV 10.1, Neut % (Auto) Not Reportable, Absolute Neuts (auto) 7.6, Absolute Lymphs (auto) 2.35, Total Counted 100, Neutrophils % (Manual) 62, Band Neutrophils % 9 H, Lymphocytes % (Manual) 22, Monocytes % (Manual) 1, Eosinophils % (Manual) 2, Metamyelocytes % 4 H, Diff Path Review May foll, Reactive Lymphocytes RARE, Platelet Estimate ADEQUATE, RBC Morphology NORM C+C Current Medications Heparin Sodium (Porcine) (Heparin Na) 5,000 unit SC Q8 [facility] Last Admin: 12/11/18 06:01 Dose: 5,000 unit Hydromorphone HCl (Dilaudid Inj) 0.5 - 1 mg IV Q2H PRN PRN PRN Reason: Mod/Severe (pain scale 6-10) Last Admin: 12/11/18 03:52 Dose: 1 mg Piperacillin Sod/Tazobactam (Sod 3.375 gm/ Sodium Chloride) 50 mls @ 12.5 mls/hr IV Q8 [facility] Last Admin: 12/11/18 06:01 Dose: 12.5 mls/hr Lactated Ringer's () 1,000 mls @ 150 mls/hr IV .Q6H40M [facility] Last Admin: 12/11/18 08:03 Dose: 150 mls/hr Ondansetron HCl (Zofran) 4 mg IV Q6H PRN PRN PRN Reason: NAUSEA/VOMITING Sodium Chloride () 5 - 15 ml IV UD PRN PRN Reason: SALINE FLUSH Last Admin: 12/09/18 21:05 Dose: 10 ml Medical Necessity - Tobacco Use Smoking Status: Former smoker Tobacco Use: Cigarettes Assessment/Plan All Active Problems (Last Updated 12/08/18 @ 03:00 by Frank Jacobson MD) Small bowel obstruction (Acute) Hyponatremia (Acute) Hypokalemia (Acute) Denies any previous medical history. (Acute) The patient is a 63-year-old female is admitted for high-grade small bowel ileus/obstruction. Repeat KUB did not show improvement and therefore patient was taken to OR for non-resolving obstruction. Operative note reviewed. This found a large abscess cavity in the right iliac region that appeared to be coming from sigmoid colon. This was drained and CAT drain was left. It was decided to leave definitive surgery later on as a staged procedure as there is high risk of bleeding and bowel injury. Patient is on IV Zosyn. 1. SBO, complicated by diverticular abscess . Patient has exploratory laparoscopy on 12/09 and found right iliac region abscess cavity coming from probably sigmoid colon. Clinically seems patient has sigmoid diverticulitis complicated with abscess. CAT drain was placed. On IV antibiotic. Continue NG suction. Leukocytosis has resolved. 2. Hyponatremia, hypokalemia -resolved. 3. Dehydration - continue IVF, 0.9% NaCl. DVT ppx: heparin Code Visit Inpatient E&M: 37839 Subs Hosp L2
[2018-12-11 14:03] LABS: Pathologist Review Reviewed
[2018-12-12] MEDS: HYDROmorphone 1 MG/ML Syringe IV (01:31)
[2018-12-12 01:45] VITALS: BP 154/73; PULSE 88; RESP 16; TEMP 37.7; O2SAT 93
[2018-12-12] MEDS: Lactated Ringers 1,000 ML 150 ML IV (04:34)
[2018-12-12] MEDS: Heparin Injection (Vial) 5,000 UNIT/ML VIAL 5000 UNIT SC ×3 (05:14→22:20)
--- NOTE | 2018-12-12 05:41 | NURSING ---
Pt refusing continuous IV fluids at this time due to BLE and BUE extremities swelling and Tight feeling. Pt does have physical appearance of generalized non-pitting edema. Notified Hospitalist of same. Hospitalist advised to continue fluids but can reduce rate to half. Discussed with patient the orders of the physician, and pt continues to refuse to accept more IV fluids until speaking with surgeon this morning. IV fluids are off at this time.
[2018-12-12 07:45] VITALS: BP 154/77; PULSE 98; RESP 16; TEMP 37.2; O2SAT 94
[2018-12-12 07:54] LABS: Anion Gap 13 (5-15); BUN 14 mg/dL (7-18); BUN/Creat Ratio 29.5 RATIO (10-20); Calcium,Total 8.2 mg/dL (8.5-10.1); Chloride 97 mmol/L (98-107); Creatinine, Serum 0.47 mg/dL (0.55-1.02); EST Glomerular Filtration Rate 140 mL/min (>60); Est Glom Filt Rate - Afr Amer 170 mL/min (>60); Glucose 102 mg/dL (74-106); Magnesium 1.9 mg/dL (1.6-2.6); Sodium Level 136 mmol/L (136-145)
--- NOTE | 2018-12-12 10:00 | PCM.PN.SRG ---
Patient Problems: Active and Suspected Problems (Last Updated 12/08/18 @ 03:00 by Frank Jacobson MD) Small bowel obstruction (Acute) Hyponatremia (Acute) Hypokalemia (Acute) Denies any previous medical history. (Acute) Subjective: Patient is passing flatus. No bowel movements as of yet Objective: Abdomen still slightly distended but no abdominal pain to speak of. Guarding or peritoneal signs identified - Physical Exam Vital Signs Temp Pulse Resp BP Pulse Ox 99.0 F 98 16 154/77 H 94 12/12/18 07:45 12/12/18 07:45 12/12/18 07:45 12/12/18 07:45 12/12/18 07:45 Oxygen Delivery Method Room Air Weight: 154 lb 5.177 oz Body Mass Index (BMI) 24.9 Intake and Output for Last 24 Hours 12/10/18 12/11/18 12/12/18 23:59 23:59 23:59 Intake Total 4887.7 / 4887.7 5161.5 / 5161.5 1230 / 1230 Output Total 3075 / 3075 1675 / 1675 620 / 620 Balance 1812.7 / 1812.7 3486.5 / 3486.5 610 / 610 Laboratory Tests Past 24 Hrs 12/11/18 12/12/18 05:50 07:15 Diff Path Review Reviewed Sodium 136 Potassium 3.0 L Chloride 97 L Carbon Dioxide 26.0 Anion Gap 13 BUN 14 Creatinine 0.47 L Estim Creat Clear Calc 113.20 Est GFR (MDRD) Af Amer 170 Est GFR (MDRD) Non-Af 140 BUN/Creatinine Ratio 29.5 H Glucose 102 Calcium 8.2 L Magnesium 1.9 Medical Necessity - Tobacco Use Smoking Status: Former smoker Tobacco Use: Cigarettes Assessment/Plan All Active Problems (Last Updated 12/08/18 @ 03:00 by Frank Jacobson MD) Small bowel obstruction (Acute) Hyponatremia (Acute) Hypokalemia (Acute) Denies any previous medical history. (Acute) I believe we are turning the corner here. I am going to remove her NG tube. She is going to continue to ambulate. We will KVO her IV fluids. She will stick on ice chips for lunch and then go to full liquids at dinner. If this works out that I am going to discharge her tomorrow after I remove her CAT drain
[2018-12-12] MEDS: Potassium Chloride 10mEq/100mL 10 MEQ/100 ML IV.SOLN. 100 MEQ IV BOLUS ×4 (10:23→13:43)
--- NOTE | 2018-12-12 11:53 | PCM.PN.HOSP ---
Patient Problems: Active and Suspected Problems (Last Updated 12/08/18 @ 03:00 by Frank Jacobson MD) Small bowel obstruction (Acute) Hyponatremia (Acute) Hypokalemia (Acute) Denies any previous medical history. (Acute) Subjective: Seen and examined. Patient passed flatus adequately but did not had bowel movement. Seen by Dr. Gupta in the morning and NG tube was removed. On ice and chips. Vitals/I&O's: Vital Signs Temp Pulse Resp BP Pulse Ox 99.0 F 98 16 154/77 H 94 12/12/18 07:45 12/12/18 07:45 12/12/18 07:45 12/12/18 07:45 12/12/18 07:45 Oxygen Delivery Method Room Air Weight: 154 lb 5.177 oz Body Mass Index (BMI) 24.9 Intake and Output for Last 24 Hours 12/10/18 12/11/18 12/12/18 23:59 23:59 23:59 Intake Total 4887.7 / 4887.7 5161.5 / 5161.5 1230 / 1230 Output Total 3075 / 3075 1675 / 1675 620 / 620 Balance 1812.7 / 1812.7 3486.5 / 3486.5 610 / 610 General: Alert, Oriented x3, Cooperative HEENT: Atraumatic, PERRLA, EOMI, Normocephalic Neck: Supple, No JVD, Negative Carotid Bruits Lungs: Clear to auscultation, Normal air movement, No rhonchi, No wheeze, No rales Cardiovascular: Regular rate, Regular Rhythm, Normal S1, Normal S2, No murmurs Abdomen: Bowel Sounds Present, Soft, Non Tender, Hypoactive Bowel Sounds, - - CAT drain has serous fluid Extremities: No edema, Capillary Refill Less than 3 Seconds Skin: No rashes, No breakdown Musculoskeletal: No Tenderness to Palpation of Joints or Extremities Lymphatic: No Cervical, Supraclavicular, or Inguinal Adenopathy Neurological: Cranial nerves II-XII grossly intact, Deep Tendon Reflexes 2+/4 and Symmetrical, Neuro grossly intact Psych/Mental Status: Normal Affect, Appropriate Laboratory Results 12/11/18 05:50: Diff Path Review Reviewed 12/12/18 07:15: Sodium 136, Potassium 3.0 L, Chloride 97 L, Carbon Dioxide 26.0, Anion Gap 13, BUN 14, Creatinine 0.47 L, Estim Creat Clear Calc 113.20, Est GFR (MDRD) Af Amer 170, Est GFR (MDRD) Non-Af 140, BUN/Creatinine Ratio 29.5 H, Glucose 102, Calcium 8.2 L, Magnesium 1.9 Current Medications Heparin Sodium (Porcine) (Heparin Na) 5,000 unit SC Q8 [facility] Last Admin: 12/12/18 05:14 Dose: 5,000 unit Hydromorphone HCl (Dilaudid Inj) 0.5 - 1 mg IV Q2H PRN PRN PRN Reason: Mod/Severe (pain scale 6-10) Last Admin: 12/12/18 01:31 Dose: 1 mg Piperacillin Sod/Tazobactam (Sod 3.375 gm/ Sodium Chloride) 50 mls @ 12.5 mls/hr IV Q8 [facility] Last Admin: 12/12/18 05:14 Dose: 12.5 mls/hr Lactated Ringer's () 1,000 mls @ 150 mls/hr IV .Q6H40M [facility] Last Admin: 12/12/18 11:27 Dose: Not Given Potassium Chloride () 10 meq in 100 mls @ 100 mls/hr IV BOLUS Q1H [facility] Stop: 12/12/18 12:59 Last Admin: 12/12/18 11:25 Dose: 100 mls/hr Ondansetron HCl (Zofran) 4 mg IV Q6H PRN PRN PRN Reason: NAUSEA/VOMITING Sodium Chloride () 5 - 15 ml IV UD PRN PRN Reason: SALINE FLUSH Last Admin: 12/09/18 21:05 Dose: 10 ml Medical Necessity - Tobacco Use Smoking Status: Former smoker Tobacco Use: Cigarettes Assessment/Plan All Active Problems (Last Updated 12/08/18 @ 03:00 by Frank Jacobson MD) Small bowel obstruction (Acute) Hyponatremia (Acute) Hypokalemia (Acute) Denies any previous medical history. (Acute) The patient is a 63-year-old female is admitted for high-grade small bowel ileus/obstruction. Repeat KUB did not show improvement and therefore patient was taken to OR for non-resolving obstruction. Operative note reviewed. This found a large abscess cavity in the right iliac region that appeared to be coming from sigmoid colon. This was drained and CAT drain was left. It was decided to leave definitive surgery later on as a staged procedure as there is high risk of bleeding and bowel injury. Patient is on IV Zosyn. 1. SBO, complicated by diverticular abscess . Patient has exploratory laparoscopy on 12/09 and found right iliac region abscess cavity coming from probably sigmoid colon. Clinically seems patient has sigmoid diverticulitis complicated with abscess. CAT drain was placed. On IV antibiotic. NG tube was removed. On ice and chips. Leukocytosis has resolved. Plan is to full liquids at dinner and then possible discharge tomorrow after removal of CAT drain. 2. Hyponatremia, hypokalemia -K3.0. Magnesium 1.9. IV KCl replacement 3. Dehydration - continue IVF, 0.9% NaCl. DVT ppx: heparin Laboratory Results 12/11/18 05:50: Diff Path Review Reviewed 12/12/18 07:15: Sodium 136, Potassium 3.0 L, Chloride 97 L, Carbon Dioxide 26.0, Anion Gap 13, BUN 14, Creatinine 0.47 L, Estim Creat Clear Calc 113.20, Est GFR (MDRD) Af Amer 170, Est GFR (MDRD) Non-Af 140, BUN/Creatinine Ratio 29.5 H, Glucose 102, Calcium 8.2 L, Magnesium 1.9 I believe we are turning the corner here. I am going to remove her NG tube. She is going to continue to ambulate. We will KVO her IV fluids. She will stick on ice chips for lunch and then go to full liquids at dinner. If this works out that I am going to discharge her tomorrow after I remove her CAT drain Code Visit Inpatient E&M: [id number] Subs Hosp L2
--- NOTE | 2018-12-12 11:56 | PN_ITS ---
Patient Problems: Active and Suspected Problems (Last Updated 12/08/18 @ 03:00 by Frank Jacobson MD) Small bowel obstruction (Acute) Hyponatremia (Acute) Hypokalemia (Acute) Denies any previous medical history. (Acute) Subjective: Seen and examined. Patient passed flatus adequately but did not had bowel movement. Seen by Dr. Gupta in the morning and NG tube was removed. On ice and chips. Vitals/I&O's: Vital Signs Temp Pulse Resp BP Pulse Ox 99.0 F 98 16 154/77 H 94 12/12/18 07:45 12/12/18 07:45 12/12/18 07:45 12/12/18 07:45 12/12/18 07:45 Oxygen Delivery Method Room Air Weight: 154 lb 5.177 oz Body Mass Index (BMI) 24.9 Intake and Output for Last 24 Hours 12/10/18 12/11/18 12/12/18 23:59 23:59 23:59 Intake Total 4887.7 / 4887.7 5161.5 / 5161.5 1230 / 1230 Output Total 3075 / 3075 1675 / 1675 620 / 620 Balance 1812.7 / 1812.7 3486.5 / 3486.5 610 / 610 General: Alert, Oriented x3, Cooperative HEENT: Atraumatic, PERRLA, EOMI, Normocephalic Neck: Supple, No JVD, Negative Carotid Bruits Lungs: Clear to auscultation, Normal air movement, No rhonchi, No wheeze, No rales Cardiovascular: Regular rate, Regular Rhythm, Normal S1, Normal S2, No murmurs Abdomen: Bowel Sounds Present, Soft, Non Tender, Hypoactive Bowel Sounds, - - CAT drain has serous fluid Extremities: No edema, Capillary Refill Less than 3 Seconds Skin: No rashes, No breakdown Musculoskeletal: No Tenderness to Palpation of Joints or Extremities Lymphatic: No Cervical, Supraclavicular, or Inguinal Adenopathy Neurological: Cranial nerves II-XII grossly intact, Deep Tendon Reflexes 2+/4 and Symmetrical, Neuro grossly intact Psych/Mental Status: Normal Affect, Appropriate Laboratory Results 12/11/18 05:50: Diff Path Review Reviewed 12/12/18 07:15: Sodium 136, Potassium 3.0 L, Chloride 97 L, Carbon Dioxide 26.0, Anion Gap 13, BUN 14, Creatinine 0.47 L, Estim Creat Clear Calc 113.20, Est GFR (MDRD) Af Amer 170, Est GFR (MDRD) Non-Af 140, BUN/Creatinine Ratio 29.5 H, Glucose 102, Calcium 8.2 L, Magnesium 1.9 Current Medications Heparin Sodium (Porcine) (Heparin Na) 5,000 unit SC Q8 [facility] Last Admin: 12/12/18 05:14 Dose: 5,000 unit Hydromorphone HCl (Dilaudid Inj) 0.5 - 1 mg IV Q2H PRN PRN PRN Reason: Mod/Severe (pain scale 6-10) Last Admin: 12/12/18 01:31 Dose: 1 mg Piperacillin Sod/Tazobactam (Sod 3.375 gm/ Sodium Chloride) 50 mls @ 12.5 mls/hr IV Q8 [facility] Last Admin: 12/12/18 05:14 Dose: 12.5 mls/hr Lactated Ringer's () 1,000 mls @ 150 mls/hr IV .Q6H40M [facility] Last Admin: 12/12/18 11:27 Dose: Not Given Potassium Chloride () 10 meq in 100 mls @ 100 mls/hr IV BOLUS Q1H [facility] Stop: 12/12/18 12:59 Last Admin: 12/12/18 11:25 Dose: 100 mls/hr Ondansetron HCl (Zofran) 4 mg IV Q6H PRN PRN PRN Reason: NAUSEA/VOMITING Sodium Chloride () 5 - 15 ml IV UD PRN PRN Reason: SALINE FLUSH Last Admin: 12/09/18 21:05 Dose: 10 ml Medical Necessity - Tobacco Use Smoking Status: Former smoker Tobacco Use: Cigarettes Assessment/Plan All Active Problems (Last Updated 12/08/18 @ 03:00 by Frank Jacobson MD) Small bowel obstruction (Acute) Hyponatremia (Acute) Hypokalemia (Acute) Denies any previous medical history. (Acute) The patient is a 63-year-old female is admitted for high-grade small bowel ileus/obstruction. Repeat KUB did not show improvement and therefore patient was taken to OR for non-resolving obstruction. Operative note reviewed. This found a large abscess cavity in the right iliac region that appeared to be coming from sigmoid colon. This was drained and CAT drain was left. It was decided to leave definitive surgery later on as a staged procedure as there is high risk of bleeding and bowel injury. Patient is on IV Zosyn. 1. SBO, complicated by diverticular abscess . Patient has exploratory laparoscopy on 12/09 and found right iliac region abscess cavity coming from probably sigmoid colon. Clinically seems patient has sigmoid diverticulitis complicated with abscess. CAT drain was placed. On IV antibiotic. NG tube was removed. On ice and chips. Leukocytosis has resolved. Plan is to full liquids at dinner and then possible discharge tomorrow after removal of CAT drain. 2. Hyponatremia, hypokalemia -K3.0. Magnesium 1.9. IV KCl replacement 3. Dehydration - continue IVF, 0.9% NaCl. DVT ppx: heparin Laboratory Results 12/11/18 05:50: Diff Path Review Reviewed 12/12/18 07:15: Sodium 136, Potassium 3.0 L, Chloride 97 L, Carbon Dioxide 26.0, Anion Gap 13, BUN 14, Creatinine 0.47 L, Estim Creat Clear Calc 113.20, Est GFR (MDRD) Af Amer 170, Est GFR (MDRD) Non-Af 140, BUN/Creatinine Ratio 29.5 H, Glucose 102, Calcium 8.2 L, Magnesium 1.9 I believe we are turning the corner here. I am going to remove her NG tube. She is going to continue to ambulate. We will KVO her IV fluids. She will stick on ice chips for lunch and then go to full liquids at dinner. If this works out that I am going to discharge her tomorrow after I remove her CAT drain Code Visit Inpatient E&M: [id number] Subs Hosp L2
[2018-12-12 14:10] VITALS: BP 132/82; PULSE 87; RESP 16; TEMP 37.2; O2SAT 97
[2018-12-12 22:15] VITALS: BP 137/77; PULSE 91; RESP 16; TEMP 37.3; O2SAT 95
[2018-12-13 03:56] VITALS: BP 154/95; PULSE 83; RESP 16; TEMP 36.1; O2SAT 98
[2018-12-13] MEDS: Heparin Injection (Vial) 5,000 UNIT/ML VIAL 5000 UNIT SC (06:12)
--- NOTE | 2018-12-13 08:50 | PCM.PN.SRG ---
Patient Problems: Active and Suspected Problems (Last Updated 12/08/18 @ 03:00 by Frank Jacobson MD) Small bowel obstruction (Acute) Hyponatremia (Acute) Hypokalemia (Acute) Denies any previous medical history. (Acute) Subjective: Passing significant amount of flatus. She has had no bowel movements as of yet. She is tolerating a diet and tolerating the NG tube being out Objective: Abdomen is soft CAT was removed. - Physical Exam Vital Signs Temp Pulse Resp BP Pulse Ox 97 F L 83 16 154/95 H 98 12/13/18 03:56 12/13/18 03:56 12/13/18 03:56 12/13/18 03:56 12/13/18 03:56 Oxygen Delivery Method Room Air Weight: 154 lb 15.759 oz Body Mass Index (BMI) 24.9 Intake and Output for Last 24 Hours 12/11/18 12/12/18 12/13/18 23:59 23:59 23:59 Intake Total 5161.5 / 5161.5 1991 / 1991 541 / 541 Output Total 1675 / 1675 730 / 730 100 / 100 Balance 3486.5 / 3486.5 1262 / 1262 441 / 441 Medical Necessity - Tobacco Use Smoking Status: Former smoker Tobacco Use: Cigarettes Assessment/Plan All Active Problems (Last Updated 12/08/18 @ 03:00 by Frank Jacobson MD) Small bowel obstruction (Acute) Hyponatremia (Acute) Hypokalemia (Acute) Denies any previous medical history. (Acute) If patient has a bowel movement she will be discharged today we will keep her diet on full liquids.
--- NOTE | 2018-12-13 08:53 | DCINST_ITS ---
Discharge Diet: Bananas, Rice, Applesauce and [place] Discharge Activity: May Not Drive - for 1 week or while taking narcotic pain medicine. May shower in (days): 1 Lifting Restrictions: 10 pounds Call your doctor if your incision/area has: Continuous Slow Oozing, Sudden Increased Bleeding, Increased Pain/ Swelling, Increased Redness, Foul Smelling Discharge Call your doctor if you observe: Fever of 101 or Higher Suture Line Care: Avoid Pulling/Pushing, Avoid Pinching/Bending Additional Dressing/Incision Instructions:: Change or remove dressing in 4 days. Leave steri-strips in place for 1 week. Allergies/Adverse Reactions: Allergies No Known Allergies Allergy (Verified 12/07/18 19:18) Medications to take at Discharge Amoxicillin/Potassium Clav [Augmentin 875-125 Tablet] 1 ea PO BID 10 Days #20 tab 12/13/18 Oxycodone HCl/Acetaminophen [Percocet 5/325] 1 - 2 tab PO Q4H PRN PRN 6 Days #30 tab 12/13/18 The following prescriptions were given: Oxycodone HCl/Acetaminophen [Percocet 5/325] 1 - 2 tab PO Q4H PRN PRN 6 Days #30 tab PRN Reason: Pain Amoxicillin/Potassium Clav [Augmentin 875-125 Tablet] 1 ea PO BID 10 Days #20 tab Primary Care Physician: Care Physician,No Primary [Primary Care Provider] - Test Results: Test results from this visit will be discussed in further detail at your follow- up appointment, if applicable. Please Follow Up With: Juan Alberto Gupta MD - [phone] When: Call to make an appointment to be seen in about 10 days.
[2018-12-13 09:15] VITALS: PULSE 92
[2018-12-13 09:47] LABS: Anion Gap 6 (5-15); BUN 7 mg/dL (7-18); BUN/Creat Ratio 13.5 RATIO (10-20); Calcium,Total 7.9 mg/dL (8.5-10.1); Chloride 99 mmol/L (98-107); Creatinine, Serum 0.52 mg/dL (0.55-1.02); EST Glomerular Filtration Rate 126 mL/min (>60); Est Glom Filt Rate - Afr Amer 152 mL/min (>60); Estimated Creatinine Clearance 102.32 ml/min; Glucose 120 mg/dL (74-106); Potassium 2.9 mmol/L (3.5-5.1); Sodium Level 133 mmol/L (136-145)
[2018-12-13 10:27] VITALS: BP 133/69; PULSE 87; RESP 18; TEMP 36.9; O2SAT 97
[2018-12-13] MEDS: Potassium Chloride 10mEq/100mL 10 MEQ/100 ML IV.SOLN. 75 MEQ IV BOLUS ×2 (11:35→12:59)
[2018-12-13 14:22] VITALS: BP 129/79; PULSE 95; RESP 18; TEMP 37.2; O2SAT 98
[2018-12-13] MEDS: 0.9% NaCl Peripheral Flush Adult/Peds IV (15:11)
--- NOTE | 2018-12-13 15:40 | PCM.PN.HOSP ---
Patient Problems: Active and Suspected Problems (Last Updated 12/08/18 @ 03:00 by Frank Jacobson MD) Small bowel obstruction (Acute) Hyponatremia (Acute) Hypokalemia (Acute) Denies any previous medical history. (Acute) Subjective: Patient is moving her flatus. No bowel movement yet. Patient is on full liquid diet. Earlier, patient CAT drain removed today. Seen by surgeon. Patient is potential discharge if moves her bowel her bowel. Patient did not had good oral solid food intake for last 7 days. Vitals/I&O's: Vital Signs Temp Pulse Resp BP Pulse Ox 98.9 F 95 18 129/79 H 98 12/13/18 14:22 12/13/18 14:22 12/13/18 14:22 12/13/18 14:22 12/13/18 14:22 Oxygen Delivery Method Room Air Weight: 154 lb 15.759 oz Body Mass Index (BMI) 24.9 Intake and Output for Last 24 Hours 12/11/18 12/12/18 12/13/18 23:59 23:59 23:59 Intake Total 5161.5 / 5161.5 1991 1027 / 1027 Output Total 1675 / 1675 730 / 730 100 / 100 Balance 3486.5 / 3486.5 1262 / 1262 927 / 927 General: Alert, Oriented x3, Cooperative HEENT: Atraumatic, PERRLA, EOMI, Normocephalic Neck: Supple, No JVD, Negative Carotid Bruits Lungs: Clear to auscultation, Normal air movement Cardiovascular: Regular rate, Regular Rhythm, Normal S1, Normal S2, No murmurs Abdomen: Bowel Sounds Present, Soft, Non Tender, Hypoactive Bowel Sounds Extremities: No edema, Capillary Refill Less than 3 Seconds Skin: No rashes, No breakdown Musculoskeletal: No Tenderness to Palpation of Joints or Extremities Lymphatic: No Cervical, Supraclavicular, or Inguinal Adenopathy Neurological: Cranial nerves II-XII grossly intact, Deep Tendon Reflexes 2+/4 and Symmetrical, Neuro grossly intact Psych/Mental Status: Normal Affect, Appropriate Laboratory Results 12/13/18 09:08: Sodium 133 L, Potassium 2.9 L, Chloride 99, Carbon Dioxide 28.0, Anion Gap 6, BUN 7, Creatinine 0.52 L, Estim Creat Clear Calc 102.32, Est GFR (MDRD) Af Amer 152, Est GFR (MDRD) Non-Af 126, BUN/Creatinine Ratio 13.5, Glucose 120 H, Calcium 7.9 L Current Medications Heparin Sodium (Porcine) (Heparin Na) 5,000 unit SC Q8 [facility] Last Admin: 12/13/18 06:12 Dose: 5,000 unit Hydromorphone HCl (Dilaudid Inj) 0.5 - 1 mg IV Q2H PRN PRN PRN Reason: Mod/Severe (pain scale 6-10) Last Admin: 12/12/18 01:31 Dose: 1 mg Piperacillin Sod/Tazobactam (Sod 3.375 gm/ Sodium Chloride) 50 mls @ 12.5 mls/hr IV Q8 [facility] Last Admin: 12/13/18 06:12 Dose: 12.5 mls/hr Lactated Ringer's () 1,000 mls @ 15 mls/hr IV .Q48H [facility] Last Admin: 12/12/18 14:41 Dose: Not Given Ondansetron HCl (Zofran) 4 mg IV Q6H PRN PRN PRN Reason: NAUSEA/VOMITING Potassium Chloride (K-Dur) 40 meq PO BIDCM [facility] Last Admin: 12/13/18 11:35 Dose: 40 meq Sodium Chloride () 5 - 15 ml IV UD PRN PRN Reason: SALINE FLUSH Last Admin: 12/13/18 15:11 Dose: 10 ml Medical Necessity - Tobacco Use Smoking Status: Former smoker Tobacco Use: Cigarettes Assessment/Plan All Active Problems (Last Updated 12/08/18 @ 03:00 by Frank Jacobson MD) Small bowel obstruction (Acute) Hyponatremia (Acute) Hypokalemia (Acute) Denies any previous medical history. (Acute) The patient is a 63-year-old female is admitted for high-grade small bowel ileus/obstruction. Repeat KUB did not show improvement and therefore patient was taken to OR for non-resolving obstruction. Operative note reviewed. This found a large abscess cavity in the right iliac region that appeared to be coming from sigmoid colon. This was drained and CAT drain was left. It was decided to leave definitive surgery later on as a staged procedure as there is high risk of bleeding and bowel injury. Patient is on IV Zosyn. 1. SBO, complicated by diverticular abscess . Patient has exploratory laparoscopy on 12/09 and found right iliac region abscess cavity coming from probably sigmoid colon. Clinically seems patient has sigmoid diverticulitis complicated with abscess. CAT drain was placed. On IV antibiotic. NG tube was removed. On ice and chips. Leukocytosis has resolved. Plan is to full liquids at dinner and then possible discharge tomorrow after removal of CAT drain. 2. Hyponatremia, hypokalemia -potassium is still low even on replacement. K2.9. Mag 1.9 sodium 133. IV KCl 20 M EQ and 40 M EQ oral K Dur twice daily. 3. Dehydration -discontinue IV fluid. DVT ppx: heparin Patient is hemodynamically stable to be discharged home once he moves her bowel. A prescription for K Dur 40 mm daily for 3 more days sent to pharmacy. Advised to check BMP and magnesium on 12/16/2018 and titrate the dose accordingly. Follow with PCP the results of BMP. Follow-up with surgery as advised. Laboratory Results 12/13/18 09:08: Sodium 133 L, Potassium 2.9 L, Chloride 99, Carbon Dioxide 28.0, Anion Gap 6, BUN 7, Creatinine 0.52 L, Estim Creat Clear Calc 102.32, Est GFR (MDRD) Af Amer 152, Est GFR (MDRD) Non-Af 126, BUN/Creatinine Ratio 13.5, Glucose 120 H, Calcium 7.9 L Code Visit Inpatient E&M: 64751 Subs Hosp L2
--- NOTE | 2018-12-13 15:46 | PN_ITS ---
Patient Problems: Active and Suspected Problems (Last Updated 12/08/18 @ 03:00 by Frank Jacobson MD) Small bowel obstruction (Acute) Hyponatremia (Acute) Hypokalemia (Acute) Denies any previous medical history. (Acute) Subjective: Patient is moving her flatus. No bowel movement yet. Patient is on full liquid diet. Earlier, patient CAT drain removed today. Seen by surgeon. Patient is potential discharge if moves her bowel her bowel. Patient did not had good oral solid food intake for last 7 days. Vitals/I&O's: Vital Signs Temp Pulse Resp BP Pulse Ox 98.9 F 95 18 129/79 H 98 12/13/18 14:22 12/13/18 14:22 12/13/18 14:22 12/13/18 14:22 12/13/18 14:22 Oxygen Delivery Method Room Air Weight: 154 lb 15.759 oz Body Mass Index (BMI) 24.9 Intake and Output for Last 24 Hours 12/11/18 12/12/18 12/13/18 23:59 23:59 23:59 Intake Total 5161.5 / 5161.5 1991 1027 / 1027 Output Total 1675 / 1675 730 / 730 100 / 100 Balance 3486.5 / 3486.5 1262 / 1262 927 / 927 General: Alert, Oriented x3, Cooperative HEENT: Atraumatic, PERRLA, EOMI, Normocephalic Neck: Supple, No JVD, Negative Carotid Bruits Lungs: Clear to auscultation, Normal air movement Cardiovascular: Regular rate, Regular Rhythm, Normal S1, Normal S2, No murmurs Abdomen: Bowel Sounds Present, Soft, Non Tender, Hypoactive Bowel Sounds Extremities: No edema, Capillary Refill Less than 3 Seconds Skin: No rashes, No breakdown Musculoskeletal: No Tenderness to Palpation of Joints or Extremities Lymphatic: No Cervical, Supraclavicular, or Inguinal Adenopathy Neurological: Cranial nerves II-XII grossly intact, Deep Tendon Reflexes 2+/4 and Symmetrical, Neuro grossly intact Psych/Mental Status: Normal Affect, Appropriate Laboratory Results 12/13/18 09:08: Sodium 133 L, Potassium 2.9 L, Chloride 99, Carbon Dioxide 28.0, Anion Gap 6, BUN 7, Creatinine 0.52 L, Estim Creat Clear Calc 102.32, Est GFR (MDRD) Af Amer 152, Est GFR (MDRD) Non-Af 126, BUN/Creatinine Ratio 13.5, Glucose 120 H, Calcium 7.9 L Current Medications Heparin Sodium (Porcine) (Heparin Na) 5,000 unit SC Q8 [facility] Last Admin: 12/13/18 06:12 Dose: 5,000 unit Hydromorphone HCl (Dilaudid Inj) 0.5 - 1 mg IV Q2H PRN PRN PRN Reason: Mod/Severe (pain scale 6-10) Last Admin: 12/12/18 01:31 Dose: 1 mg Piperacillin Sod/Tazobactam (Sod 3.375 gm/ Sodium Chloride) 50 mls @ 12.5 mls/hr IV Q8 [facility] Last Admin: 12/13/18 06:12 Dose: 12.5 mls/hr Lactated Ringer's () 1,000 mls @ 15 mls/hr IV .Q48H [facility] Last Admin: 12/12/18 14:41 Dose: Not Given Ondansetron HCl (Zofran) 4 mg IV Q6H PRN PRN PRN Reason: NAUSEA/VOMITING Potassium Chloride (K-Dur) 40 meq PO BIDCM [facility] Last Admin: 12/13/18 11:35 Dose: 40 meq Sodium Chloride () 5 - 15 ml IV UD PRN PRN Reason: SALINE FLUSH Last Admin: 12/13/18 15:11 Dose: 10 ml Medical Necessity - Tobacco Use Smoking Status: Former smoker Tobacco Use: Cigarettes Assessment/Plan All Active Problems (Last Updated 12/08/18 @ 03:00 by Frank Jacobson MD) Small bowel obstruction (Acute) Hyponatremia (Acute) Hypokalemia (Acute) Denies any previous medical history. (Acute) The patient is a 63-year-old female is admitted for high-grade small bowel ileus/obstruction. Repeat KUB did not show improvement and therefore patient was taken to OR for non-resolving obstruction. Operative note reviewed. This found a large abscess cavity in the right iliac region that appeared to be coming from sigmoid colon. This was drained and CAT drain was left. It was decided to leave definitive surgery later on as a staged procedure as there is high risk of bleeding and bowel injury. Patient is on IV Zosyn. 1. SBO, complicated by diverticular abscess . Patient has exploratory laparoscopy on 12/09 and found right iliac region abscess cavity coming from probably sigmoid colon. Clinically seems patient has sigmoid diverticulitis complicated with abscess. CAT drain was placed. On IV antibiotic. NG tube was removed. On ice and chips. Leukocytosis has resolved. Plan is to full liquids at dinner and then possible discharge tomorrow after removal of CAT drain. 2. Hyponatremia, hypokalemia -potassium is still low even on replacement. K2.9. Mag 1.9 sodium 133. IV KCl 20 M EQ and 40 M EQ oral K Dur twice daily. 3. Dehydration -discontinue IV fluid. DVT ppx: heparin Patient is hemodynamically stable to be discharged home once he moves her bowel. A prescription for K Dur 40 mm daily for 3 more days sent to pharmacy. Advised to check BMP and magnesium on 12/16/2018 and titrate the dose accordingly. Follow with PCP the results of BMP. Follow-up with surgery as advised. Laboratory Results 12/13/18 09:08: Sodium 133 L, Potassium 2.9 L, Chloride 99, Carbon Dioxide 28.0, Anion Gap 6, BUN 7, Creatinine 0.52 L, Estim Creat Clear Calc 102.32, Est GFR (MDRD) Af Amer 152, Est GFR (MDRD) Non-Af 126, BUN/Creatinine Ratio 13.5, Glucose 120 H, Calcium 7.9 L Code Visit Inpatient E&M: 29159 Subs Hosp L2
[2018-12-13 16:35] VITALS: BP 133/80; PULSE 92; RESP 18; TEMP 37.1; O2SAT 97
--- NOTE | 2018-12-22 09:02 | PCM.DC.SUM ---
Discharge Date and Diagnosis Date of Admission: 12/07/18 Date of Discharge: 12/13/18 - Primary Discharge Diagnosis Diverticular abscess Hospital Course and Treatment Operations: - - Exploratory laparoscopy with drain placement. Summary of Care Provided: The patient is a 63 year old F who presented with a 5 day history of vomiting, diarrhea and bloating. CT scan of the ab/pel demonstrated High-grade distal small bowel obstruction. Air-fluid level in the mid pelvis. Considerations include an internal hernia or an abscess. Mild colonic diverticulosis. Normal appendix. NG tube was placed in the ED. Patient felt better after placement. Hospitalization day #2, patient was taken for an exploratory operation on 12/09/[address] Gupta. Abscess collection was encountered and drained. CAT drain was placed. Patient tolerated the procedure well. Upon discharge on 12/13, patient was passing flatus. She tolerated her diet well. She denies nausea, vomiting. She noted very minimal amount of abdominal discomfort. - Physical Exam General: Alert, Oriented x3, Cooperative Abdomen: Bowel Sounds Present, Soft, Passing Flatus, Distended - slightly Vital Signs Temp Pulse Resp BP Pulse Ox 98.7 F 92 18 133/80 H 97 12/13/18 16:35 12/13/18 16:35 12/13/18 16:35 12/13/18 16:35 12/13/18 16:35 Oxygen Delivery Method Room Air Weight: 154 lb 15.759 oz Body Mass Index (BMI) 24.9 Discharge Diet: Bananas, Rice, Applesauce and [place] Discharge Activity: May Not Drive - for 1 week or while taking narcotic pain medicine. May shower in (days): 1 Call your doctor if your incision/area has: Continuous Slow Oozing, Sudden Increased Bleeding, Increased Pain/ Swelling, Increased Redness, Foul Smelling Discharge Call your doctor if you observe: Fever of 101 or Higher Suture Line Care: Avoid Pulling/Pushing, Avoid Pinching/Bending Additional Dressing/Incision Instructions:: Change or remove dressing in 4 days. Leave steri-strips in place for 1 week. Home Medications: Medications to take at Discharge Potassium Chloride [K-Dur] 40 meq PO DAILY #6 tab 12/13/18 Following Prescrptions Were Given to Patient: Potassium Chloride [K-Dur] 40 meq PO DAILY #6 tab Primary Care Physician: Care Physician,No Primary [Primary Care Provider] - Please Follow Up With: Juan Alberto Gupta MD - [phone] When: Call to make an appointment to be seen in about 10 days. Disposition: Home Minutes spent on discharge:: 20 Patient Condition:: Stable Medical Necessity - Tobacco Use Smoking Status: Former smoker Tobacco Use: Cigarettes Meaningful Use Info Meaningful Use Diagnoses (Choose all that apply): None applicable Code Visit Inpatient E&M: 65231 Disch Hosp - No charge
== END 2018-12-13 16:45 | disposition home or self-care (01) | DRG 345 ==
LOC: ED 20:10 → MS3 12-08 02:26
PROVIDERS: Anesthesiology; Hospitalist; Internal Medicine; Physician Assistant; Admitting Provider Surgery; Emergency Provider Emergency Medicine; Referring Provider Surgery; Visit Provider Surgery
PROC: 0D9N40Z Drainage of Sigmoid Colon with Drainage Device, Percutaneous Endoscopic Approach (ICD-10-PCS; CPT 49320; principal; 2018-12-09 15:15)
DX: K56.609 Unspecified intestinal obstruction, unspecified as to partial versus complete obstruction (principal); E87.1 Hypo-osmolality and hyponatremia; K57.20 Diverticulitis of large intestine with perforation and abscess without bleeding; E87.6 Hypokalemia; E86.0 Dehydration
CPT/HCPCS: 36415; 74018; 74019; 74177; 80048; 80053; 80076; 81001; 83735; 84100; 84132; 85025; 85730; 93005; 97802; 97803; 99285; J7030; J7120; Q9967; A4216; J2405

== ENCOUNTER → 2018-12-16 13:48 | Outpatient (CLI) | payer OTHER, SELFPAY ==
[2018-12-16 13:48] VITALS: BMI 25.0
[2018-12-16 15:05] LABS: Anion Gap 5 (5-15); BUN 6 mg/dL (7-18); BUN/Creat Ratio 11.3 RATIO (10-20); Calcium,Total 8.3 mg/dL (8.5-10.1); Chloride 102 mmol/L (98-107); Creatinine, Serum 0.53 mg/dL (0.55-1.02); EST Glomerular Filtration Rate 123 mL/min (>60); Est Glom Filt Rate - Afr Amer 149 mL/min (>60); Glucose 128 mg/dL (74-106); Magnesium 1.8 mg/dL (1.6-2.6); Potassium 3.9 mmol/L (3.5-5.1); Sodium Level 133 mmol/L (136-145)
== END ==
PROVIDERS: Referring Provider Surgery; Visit Provider Surgery
DX: K57.32 Diverticulitis of large intestine without perforation or abscess without bleeding (principal); E87.6 Hypokalemia
CPT/HCPCS: 36415; 80048; 83735

== ENCOUNTER 2019-02-12 07:18 | Day surgery (SDC) | payer OTHER, SELFPAY ==
[2018-12-16 13:48] VITALS: BMI 25.0
--- NOTE | 2019-02-01 11:31 | HP_ITS ---
Intake Intake Visit Reasons: *HOSP FU 12/08 PARTIAL SM BOWEL OBSTRUCTION Chief Complaint: bowel obstruction Concrete Foreman Required: No Is patient in pain?: No Allergies No Known Allergies Allergy (Verified 01/29/19 13:08) Medications calcium carbonate 500 mg calcium (1,250 mg) chewable tablet 500 mg PO DAILY tab 01/29/19 [History Confirmed 01/29/19] glucosamine 750 fd-aphcgtrqnd-yzk no.1 625 mg-C 30 pp-ezzf-jxjz tablet 1 tab PO BID 01/29/19 [History Confirmed 01/29/19] multivitamin,bh-jsvx-zxzfexad tablet 1 tab PO DAILY 01/29/19 [History Confirmed 01/29/19] Is last menstrual period known: No Post menopausal: Yes Patient : No PFSH Medical History Small bowel obstruction (Acute) Hyponatremia (Acute) Hypokalemia (Acute) Surgical History History of ankle surgery (Acute) History of wisdom tooth extraction (Acute) Social History Smoking Status: Former smoker HPI HPI HPI: CRISTIAN BONNER, is a 63 F who presents to the office today for HPI HPI Surgical H&P: Yes HPI: CRISTIAN BONNER, is a 63 F who presents to the office today for follow-up from an exploratory laparoscopy. Patient had a expiratory laparoscopy and drainage of a diverticular abscess causing a small bowel obstruction. I last saw her back in 12/22/2018 and subsequently removed her drain. She has been having normal bowel movements taking daily prune juice and walking every day. She has decreased her fiber intake and has avoided nuts and seeds. She has done remarkably well. Comes back today so that we can get her scheduled for a colonoscopy. Exam Const General: no acute distress, well developed, well hydrated Orientation: oriented to person, oriented to place, oriented to time [facility] Head: normocephalic, atraumatic Ears: external ears normal Mouth: moist mucous membranes Eyes Sclera: sclerae normal Pupils: normal by confrontation Neck Neck: no lymphadenopathy noted Neck mass: No Thyroid: thyroid normal, symmetrical Chest Chest palpation & inspection: normal inspection of the chest Resp Effort & Inspection: normal respiratory effort Auscultation: clear to auscultation bilaterally Percussion: percussion normal Cardio Rate: regular rate Rhythm: regular rhythm GI Palpation: soft, no hepatosplenomegaly, no masses, nontender Rectal Exam: other Other: Rectal exam deferred. Extrem General: normal to inspection, no clubbing, cyanosis or edema Assessment & Plan Problems 1. Perforation of sigmoid colon due to diverticulitis K57.20 Plan I have discussed the above with the patient. I have offered the patient colonoscopy for evaluation. I have explained the risks/benefits of the procedure and described the procedure. I have discussed the risks with the patient, including but not limited to: infection, bleeding, perforation of the GI tract requiring emergency surgery, inability to complete the procedure, injury to any internal organs, complications of anesthesia, etc. - the patient understands and agrees to proceed. I have answered all the patient's questions to the patient's satisfaction and the patient has no further questions. The patient has been given instructions for the colon cleansing preparation. Our goal is for sometime later this year to perform an elective laparoscopic sigmoid colectomy on her. I have instructed her at that time she will need to have a urologist put up bilateral ureteral stents at the time of her surgery. Orders Orders: Colonoscopy 01/29/19 K56.609, K57.80 Medications New: multivitamin,id-iesn-aolukxdw tablet (Complete Multivitamin tablet) 1 tab PO DAILY calcium carbonate (Calcium 500) 500 mg PO DAILY wdyqxzmr-fhmr-teo3-C-emiliano-bosw 750-625-30 mg 1 tab PO BID Coding Level of Care Code Off vis,est,level 3 Diagnoses Perforation of sigmoid colon due to diverticulitis K57.20 02/01/19 1131 <Electronically signed by Juan Alberto Gupta MD> Date Juan Alberto Gupta MD I have re-examined the patient. There are no clinical changes since date of exam.
[2019-02-12 07:34] VITALS: BP 138/74; PULSE 79; RESP 16; TEMP 36.8; O2SAT 96; BMI 25.3
[2019-02-12 08:40] VITALS: BP 138/74; BP 139/77; PULSE 88; RESP 16; TEMP 37; O2SAT 97
[2019-02-12 08:45] VITALS: BP 127/77; BP 138/74; PULSE 81; RESP 16; O2SAT 98
--- NOTE | 2019-02-12 08:47 | OP.ENDO_ITS ---
02/12/2019 No Primary Care Physician Re : Colonoscopy procedure for Erica Abdul Dear Care Physician This procedure was performed on January. My impressions and recommendations are as follows: Impressions : - Diverticulosis in the sigmoid colon and in the descending colon. No specimens collected. - Non-bleeding internal hemorrhoids. - The examination was otherwise normal. Recommendations : - Discharge patient to home. - Resume previous diet. - Continue present medications. - Repeat colonoscopy in 10 years for screening purposes. - Return to my office in 1 week. My findings are described in the full procedure note, which is enclosed. If I can be of further assistance, please feel free to contact me at Doctor phone number(s): , Fax: [phone], Work: . Sincerely, MD Juan Alberto Foreman MD 02/12/2019 8:47:36 AM This report has been signed electronically.
[2019-02-12 08:50] VITALS: BP 120/77; BP 138/74; PULSE 85; RESP 16; O2SAT 95
[2019-02-12 08:55] VITALS: BP 126/87; BP 138/74; PULSE 82; RESP 16; TEMP 36.8; O2SAT 96
[2019-02-12 09:03] VITALS: BP 138/74
== END 2019-02-12 09:23 | disposition home or self-care (01) ==
LOC: EN 07:19 → AC 07:19
PROVIDERS: Referring Provider Surgery; Visit Provider Surgery
PROC: 0DJD8ZZ Inspection of Lower Intestinal Tract, Via Natural or Artificial Opening Endoscopic (ICD-10-PCS; CPT 45378; principal; 2019-02-12 08:25)
DX: K57.32 Diverticulitis of large intestine without perforation or abscess without bleeding (principal); K64.8 Other hemorrhoids; Z78.0 Asymptomatic menopausal state; Z79.899 Other long term (current) drug therapy; Z87.891 Personal history of nicotine dependence
CPT/HCPCS: 45378; J7120; J1610; J2405

== ENCOUNTER 2019-03-24 05:18 | Inpatient (IN) | payer OTHER, SELFPAY ==
[2019-02-19 13:38] VITALS: BMI 25.3
[2019-03-17 13:11] VITALS: BMI 25.3
[2019-03-17 14:06] VITALS: BP 122/75; PULSE 78; RESP 16; TEMP 36.9; O2SAT 97; BMI 25.5
--- NOTE | 2019-03-17 14:19 | SDCEKG_ITS ---
Test Reason : Blood Pressure : / mmHG Vent. Rate : 075 BPM Atrial Rate : 075 BPM P-R Int : 148 ms QRS Dur : 088 ms QT Int : 378 ms P-R-T Axes : 060 035 055 degrees QTc Int : 422 ms Normal sinus rhythm Low voltage QRS (LIMB LEADS) Confirmed by JAX HAQ, XAVIER ([id number]), editor farm journal [address] ([id number]) on 03/20/2019 8:44:38 AM Referred By: Juan Alberto Gupta Confirmed By:XAVIER CAMARA MD
[2019-03-24] VITALS (11 sets, daily range): BP systolic 111–135; BP diastolic 59–88; PULSE 69–90; RESP 14–18; TEMP 36.3–36.8; O2SAT 95–100; BMI 25.5
[2019-03-24] MEDS: Gabapentin 600 MG Tablet PO (06:00)
[2019-03-24] MEDS: Acetaminophen 500 MG Tablet 1000 MG PO ×3 (06:00→18:01)
[2019-03-24 06:16] LABS: Bedside Glucose 118 mg/dL (70-110)
[2019-03-24] MEDS: Magnesium Sulfate 4gm/100mL 4 GM/100 ML IV.SOLN. IV (06:17)
[2019-03-24] MEDS: Lactated Ringers 1,000 ML 40 ML IV ×2 (06:17→12:43)
[2019-03-24] MEDS: Lubricating Jelly 60 GM Tube 30 GM TOPICAL (07:01)
--- NOTE | 2019-03-24 07:13 | HP.PCM_ITS ---
History and Physical Date of Admission: 03/24/19 [facility] [address] [place] [address] OFFICE VISIT Date of Service: 03/17/19 MR#: [id number] Acct: [id number] Name: CRISTIAN BONNER Rep #: [id number] : 1955 Provider: Jessica tafoya PA-C Age/Sex: 63/F Location: [facility] Status: Signed Intake Vital Signs 03/17/19 Body Mass Index (BMI) 25.3 03/17/19 Height 5 ft 6 in 03/17/19 Weight: 155 lb 03/17/19 Body Mass Index (BMI) 25.0 03/17/19 Blood Pressure 131/79 H 03/17/19 Blood Pressure Location Rt brachial 03/17/19 Blood Pressure Position Sitting 03/17/19 Respiratory Rate 18 03/17/19 Pulse Rate 93 03/17/19 Pulse Source Monitor 03/17/19 Temperature 98.5 F 03/17/19 Temperature Source Oral 03/17/19 Pulse Ox 96 03/17/19 Oxygen Delivery Method room air Intake Visit Reasons: update h&p lap sig colectomy 7- Chief Complaint: emesis Security Vehicle Patrol Officer Required: No Is patient in pain?: No Allergies No Known Allergies Allergy (Verified 03/17/19 13:58) Medications glucosamine 750 nx-axibxzjhwl-prj no.1 625 mg-C 30 af-yvkr-ghhe tablet 1 tab PO DAILY 01/29/19 [History Confirmed 03/17/19] multivitamin,yy-dosz-stlqwvqt tablet 1 tab PO DAILY 01/29/19 [History Confirmed 03/17/19] L.acidoph,Paracasei, B.lactis [Probiotic] 1 ea PO DAILY 02/06/19 [History Confirmed 03/17/19] Calcium Carbonate/Vitamin D3 [Calcium 600 + Vit D Tablet] 1 ea PO DAILY 03/17/19 [History Confirmed 03/17/19] PFSH Medical History Small bowel obstruction (Acute) Hyponatremia (Acute) Hypokalemia (Acute) Surgical History History of ankle surgery (Acute) History of wisdom tooth extraction (Acute) Social History (Updated 03/17/19 @ 16:14 by Jessica Cottrell PA-C) Smoking Status: Never smoker HPI HPI HPI: CRISTIAN BONNER is a 63 F who presents to the office today for HPI HPI Surgical H&P: Yes HPI: CRISTIAN BONNER is a 63 F who presents to the office today for an update history and physical. Patient denies recent hospitalizations or illnesses. Patient denies abdominal pain. Patient denies previous cardiac and pulmonary history. She denies previous complications with anesthesia. Patient's previous history per Dr. Gupta: CRISTIAN BONNER, is a 63 F who presents to the office today for postoperative colonoscopy. Patient underwent a colonoscopy on 02/12/2019. She was noted to have multiple small and large mouth diverticuli mostly in the sigmoid and the descending colon. No biopsies were performed. The exact location where her perforation could not be ascertained with a colonoscopy. She was also noted to have some nonbleeding internal hemorrhoids during retroflexion. Patient had a expiratory laparoscopy and drainage of a diverticular abscess causing a small bowel obstruction. I last saw her back in 12/22/2018 and subsequently removed her drain. She has been having normal bowel movements taking daily prune juice and walking every day. She has decreased her fiber intake and has avoided nuts and seeds. She has done remarkably well. ROS General General: No weight change, appetite, fatigue, colon cancer, breast cancer or weakness HEENT HEENT: No difficulty swallowing, eye injury, eye surgery, swollen glands or hoarseness Endo Endocrine: No thyroid disease, diabetes mellitus, thyroid cancer, Hair loss, heat intolerance or cold intolerance Skin Skin: No rash or changing moles Breast Breast: No left breast lump, right breast lump, nipple discharge, breast pain, abnormal mammogram, abnormal US or breast enlargement Musc Musculoskeletal: No back problems, arthritis, rheumatoid arthritis, gout or joint pain Cardio Cardiovascular: No murmur, pacemaker, heart disease, atrial fibrillation, high blood pressure, heart attack, heart stent, palpitations, shortness of breat with exertion or chest pain Psych Psychiatric: No depression, anxiety or hearing voices Resp Respiratory: No shortness of breath, No sleep apnea, No cough, No COPD, No asthma, No emphysema, No wheezing Gastro Gastrointestinal: Yes abdominal pain, Yes nausea or vomiting, No diarrhea, No constipation, No blood in stool, No acid reflux, No hemorrhoids, No ulcers, No gallbladder problem, No black,tarry stools [place] Hematologic: No blood thinners, No blood disorders, No bleeding, No anemia, No blood clots Neuro Neurologic: No weakness Exam Const General: cooperative, healthy appearing, comfortable, no acute distress HENMT Head: normal to inspection Eyes General: appearance normal, both eyes and all related structures Neck Neck: normal visual inspection Neck mass: No Chest Breast Palpation: No nipple discharge Resp Effort & Inspection: normal respiratory effort Auscultation: clear to auscultation bilaterally Cardio Rate: regular rate Rhythm: regular rhythm Heart Sounds: no murmurs GI Inspection: normal to inspection Palpation: soft Auscultation: normal bowel sounds Skin General: no rashes or lesions noted Neuro General: no focal motor deficits, CN's II-XI intact bilaterally Extrem General: normal to inspection Psych Appearance: grossly normal Affect: normal affect Assessment & Plan Problems 1. Diverticulitis K57.[address] Gupta will plan to perform an ERAS laparoscopic sigmoid resection. Dr. Lopes will assist by placing bilateral ureteral stents. Patient has had the opportunity to ask and have questions answered. Patient verbally understands and agrees with the plan. Pre-op antibiotics and bowel prep have been reviewed. Coding Level of Care Code No Charge Diagnoses Diverticulitis K57.92 Comment Update H&P 03/17/19 3214 <Electronically signed by Jessica waterman PA-C> Date _ Jessica Cottrell PA-C Cosigner Signature: Date (if applicable) CC: ~ I have re-examined the patient. There are no clinical changes since date of exam.
--- NOTE | 2019-03-24 07:15 | COL_PTH ---
PATIENT: CRISTIAN BONNER LOC: MS2 U#:[id number] AGE/SX: 63/F ROOM: [facility] [place] RE03/24/[address]: Dr. Juan Alberto Gupta MD : [id number] BED: 1 DIS: 03/26/2019 SPEC #: [id number] RECD: 03/24/19 12:46 STATUS: PATRICIA REQ #: [id number] TYRON: 03/24/19 07:[address]: Juan Alberto Gupta DEPT: SURGICAL PATHOLOGY RECD BY: Alvarado Sandoval ENTERED: 03/24/19 14:24 SP TYPE: COLON OTHR DR: No Primary Care Phys Tissues: A - Colon, NOS B - Colon Donuts C - Colon Donuts Procedures: Surgery Specimen Level III Surgery Specimen Level V HEADER OPERATION: Laparoscopic sigmoid colectomy with ureteral bilateral PRE-OP DIAGNOSIS: Diverticulitis, pelvic abscess TISSUE SUBMITTED: A - Sigmoid colon, B - Distal donut, C - Proximal donut MICROSCOPIC DIAGNOSIS A. Sigmoid colon, colectomy: Diverticulosis and diverticulitis. One minute pericolonic lymph node with reactive changes. B. Distal donut: Colonic donut, no pathologic diagnosis. C. Proximal donut: Colonic donut, no pathologic diagnosis. SJ:rian 03/26/19 MICROSCOPIC DESCRIPTION Slides are reviewed. GROSS DESCRIPTION A - Received in fixative is one container labeled with the patient's name and designated sigmoid colon. The specimen consists of a segment of colon with attached pericolonic adipose tissue measuring 16 cm in length. Both resection margins are stapled. The lumen contains fecal material. Sections do not reveal any mass lesion. Sections reveal multiple diverticula. Many of the diverticula are filled with fecal material. Additional dictation will follow after overnight fixation. / LAMONTE:rian 03/24/19 No obviously ruptured diverticula are noted. Sections of pericolonic adipose tissue do not reveal any obviously enlarged lymph node. Bottom Cementer sections are submitted in six cassettes as follows: 1??resection margins, 2-4 - diverticula, 5 - pericolonic adipose tissue. / LAMONTE:rian 03/25/19 B - Received in fixative is one container labeled with the patient's name and designated distal donut. The specimen consists of a donut-shaped piece of colonic tissue measuring 1.5 x 1.5 x 1 cm. The mucosa is congested. The entire specimen is submitted in one cassette. / LAMONTE:rian 03/24/19 C - Received in fixative is one container labeled with the patient's name and designated proximal donut. The specimen consists of a strip of colonic tissue measuring 3.5 x 0.5 x 0.5 cm. Multiple sutures are noted. The entire specimen is submitted in one cassette. / LAMONTE:rian 03/24/19 TC:5 CPT: 44022, 09275 x2
[2019-03-24] MEDS: Lidocaine/D5W 2,000 MG/250 ML IV.SOLN 21.57 MG IV (07:45)
--- NOTE | 2019-03-24 08:06 | OP.PCM_ITS ---
Report of Operation Date of Procedure: 03/24/19 Pre-Operative Diagnosis: Diverticular disease Post-Operative Diagnosis: The same Surgery/Procedure Performed:: Cystoscopy and bilateral ureteral catheter placement Description of Surgical Findings:: 63-year-old female who is undergoing a colon resection and also has a pelvic abscess requested by general surgery to place stents on both sides to assist with the surgery so today with a cystoscopy and bilateral stent placements with ureteral catheters. 63-year-old female taken back to the operating room at the smooth induction of general anesthesia he was placed in dorsolithotomy position when of the bladder the 21 Georgian rigid cystourethroscope, the urethra vaginal area prepped and draped in usual fashion once inside the bladder the trigone is normal the bladder is normal left and right ureter orifice were identified the dome was normal there is no tumors or stones within the bladder I then cannulated the right ureteral orifice with a Glidewire and a Pollack catheter advanced of the k idney cannulated the left side with a Glidewire and a Pollack catheter events of the kidney and then once a good position left both Pollick catheters up on the ureters but a catheter into the bladder drained the bladder and then secured the Pollick catheter to the catheters with tape ,patient anesthetic was continued she was then handed off to general surgery to proceed with his case. Type of Anesthesia:: General Drains: stent bilateral - Admit VTE Documentation VTE Present on Admission: No VTE Mechan Device Prophylaxis: SCD's
[2019-03-24] MEDS: Bupivacaine 0.25% 30 ML Vial (08:27)
[2019-03-24] MEDS: BUPIVACAINE LIPOSOME/PF 20 ML VIAL OPERA.SITE (08:27)
--- NOTE | 2019-03-24 10:01 | PCM.OPRPT ---
Problem List (1) Perforation of sigmoid colon due to diverticulitis Status: Acute Report of Operation Date of Procedure: 03/24/19 Pre-Operative Diagnosis: Perforated sigmoid diverticulitis Post-Operative Diagnosis: Same Surgery/Procedure Performed:: Laparoscopic sigmoid colectomy (low anterior resection) Type of Anesthesia:: General Anesthesiologist: Ab Harmon Specimen's removed: Sigmoid colon Estimated Blood Loss (mL): 100 cc Fluids Replaced: 900 cc LR uop:640 Description of Procedure: Patient was brought into the operating room. Placed in the supine position. Excellent general trach intubation legs were placed up in stirrups body was properly padded on the beanbag the beanbag was then deflated. Dr. Vargas put bilateral ureteral stents in the abdomen and perineum was then sterilely prepped and draped in the usual fashion. Local was injected above the umbilicus. Incision was made varies needle was placed inside the abdomen the abdomen was insufflated to 15 torr. A #5 trocar was placed without injury to underlying structures. I then injected Exparel all along the right and left oblique lines I used 60 cc in total. And I was saving the rest of the 40 of that I had for the closure at the end. A right lower quadrant 10/12 trocar was placed under direct visualization and then in between those 2 in the midclavicular line was another #5 trocar that was placed. Suprapubically a #5 trocar was placed. All these trochars were placed under direct visualization without injury to underlying structures. Patient was placed in the head down. Small bowel was adherent to the previous site where the bowel obstruction was we took this down with the Enseal there was no injury to the small bowel. After this I took the sigmoid colon off of the right-sided ovary with the Enseal and then off of the uterus itself. I created a window in the mesentery was able to go through this I stayed fairly close to the bowel I did not identify either of the ureters. I stayed free and clear of the peritoneum posteriorly. I dissected down towards the rectum with the Enseal. I then transected the rectosigmoid juncture with a 60 stapler. I then came down along the mesentery and the white line of Toldt on the left side of the sigmoid colon and once I had an off of the colon freed up and felt that I had enough colon to go into the pelvis I then made a Pfannenstiel incision. With the Pfannenstiel incision I then opened the anterior fascia using electrocautery dissected free from the underlying rectus abdominis muscle I then split the rectus abdominis muscle and went into the abdominal cavity without difficulty. A medium wound retractor was placed into the wound I then was easily able to grasp the sigmoid colon I dissected down to a very soft area of the descending sigmoid colon juncture. It did not have any obvious diverticulum in this area which I felt was a good place to transect the colon. Window in the mesentery was created I transected the colon with a 75 linear cutter and came down across the rest of the mesentery with the Enseal device I then sent the entire colon specimen to pathology for permanent sectioning. A bowel clamp was placed under the colon I cut the sutures free a 2-0 Prolene suture in a whipstitch fashion was created around the end of the sigmoid colon at 29 anvil was then placed in and the whipstitch was tied down. After this rectum was then irrigated it was sequentially dilated to 30. the 29 EEA stapler was then placed inside the rectum and I directed it up towards the end of the staple line. I did not get it all the way to the end of the staple line I did not want to push too hard so I picked a spot anteriorly and brought the spike out. I then placed the anvil onto the spike audible click was heard. We brought the anvil down to the colon we brought the indicator line into the middle of the green we fired the stapler. We checked the anastomosis we had a airtight anastomosis no leaks were identified. And I had no bleeding identified. I was very satisfied with this anastomosis. We had no tension. Then reinflated the abdomen inspected: Laid nice and flat no torsion to it at all and there was absolutely no tension. I removed all the trochars under direct visualization. I had an accurate needle and sponge count. I brought the rectus abdominis muscles together with a few 0 Vicryl sutures. The fascia was then brought together with #1 PDS. I then closed the 10/12 trocar on the right lower quadrant with 0 Vicryl. More Exparel was injected in the lower incision. The incision was then closed in layers. Deep dermis of 3-0 Vicryl and running 4-0 Monocryl's. Steri-Strips were applied sterile dressings were applied and the patient tolerated the procedure well. - Admit VTE Documentation VTE Present on Admission: No VTE Mechan Device Prophylaxis: SCD's VTE Pharm Prophylaxis ordered?: No Reason prophylaxis not ordered:: Treatment Not Indicated
[2019-03-24] MEDS: Docusate Sodium 100 MG Capsule PO (21:08)
[2019-03-25] MEDS: Acetaminophen 500 MG Tablet 1000 MG PO ×4 (00:01→18:26)
[2019-03-25 04:30] VITALS: BP 123/60; PULSE 78; RESP 16; TEMP 36.4; O2SAT 96
[2019-03-25 06:00] LABS: Hematocrit 37.8 % (37-47); Hemoglobin 12.8 g/dl (12.0-15.0); Mean Corp Hgb Conc 33.9 g/gl (32-36); Mean Corpuscular Volume 88.5 fL (81-99); Mean Platelet Vol. 10.4 fl (6.2-12.0); Platelet Count 343 K/mm3 (150-450); RBC Distribution Width CV 13.4 % (11.6-14.6); RBC Distribution Width SD 41.9 fl (35.1-43.9); Red Blood Count 4.27 M/mm3 (4.2-5.4); White Blood Count 8.2 K/mm3 (4.4-11.0)
[2019-03-25 06:08] LABS: Scan Indicated on CBC? Y/N NO
[2019-03-25 06:25] LABS: Anion Gap 8 (5-15); BUN 3 mg/dL (7-18); BUN/Creat Ratio 5.7 RATIO (10-20); Calcium,Total 8.3 mg/dL (8.5-10.1); Chloride 106 mmol/L (98-107); Creatinine, Serum 0.52 mg/dL (0.55-1.02); EST Glomerular Filtration Rate 125 mL/min (>60); Est Glom Filt Rate - Afr Amer 152 mL/min (>60); Estimated Creatinine Clearance 102.32 ml/min; Glucose 95 mg/dL (74-106); Potassium 3.5 mmol/L (3.5-5.1); Sodium Level 138 mmol/L (136-145)
[2019-03-25 06:59] VITALS: O2SAT 97
[2019-03-25 07:59] VITALS: BP 116/67; PULSE 71; RESP 18; TEMP 37; O2SAT 96
[2019-03-25] MEDS: Docusate Sodium 100 MG Capsule PO ×2 (08:06→21:03)
--- NOTE | 2019-03-25 08:07 | PCM.PN.SRG ---
Patient Problems: Active and Suspected Problems (Last Reviewed 03/17/19 @ 13:09 by Jennifer Valdes) Perforation of sigmoid colon due to diverticulitis (Acute) Subjective: Patient looks fantastic this morning. Her urine is cleared up but she still has her Scott catheter. She feels that her bowels are starting to rumble. She has had no flatus as of yet. Objective: Dressings are dry there is no signs of any infections. - Physical Exam Vital Signs Temp Pulse Resp BP Pulse Ox 98.6 F 71 18 116/67 96 03/25/19 07:59 03/25/19 07:59 03/25/19 07:59 03/25/19 07:59 03/25/19 07:59 Oxygen Flow Rate (L/min) 6 Oxygen Delivery Method Room Air Weight: 158 lb 8.198 oz Body Mass Index (BMI) 25.5 Intake and Output for Last 24 Hours 03/23/19 03/24/19 03/25/19 23:59 23:59 23:59 Intake Total 2971 / 4261 1806 / 1806 Output Total 1460 / 4160 3270 / 3270 Balance 1511 / 101 -1464 / -1464 Laboratory Tests Past 24 Hrs 03/25/19 03/25/19 05:37 05:37 WBC 8.2 RBC 4.27 Hgb 12.8 Hct 37.8 MCV 88.5 MCH 30.0 MCHC 33.9 RDW 13.4 RDW Differential 41.9 Plt Count 343 MPV 10.4 Sodium 138 Potassium 3.5 Chloride 106 Carbon Dioxide 24.0 Anion Gap 8 BUN 3 L Creatinine 0.52 L Estim Creat Clear Calc 102.32 Est GFR (MDRD) Af Amer 152 Est GFR (MDRD) Non-Af 125 BUN/Creatinine Ratio 5.7 L Glucose 95 Calcium 8.3 L Medical Necessity - Tobacco Use Smoking Status: Never smoker Tobacco Use: Non-smoker Assessment/Plan All Active Problems (Last Reviewed 03/17/19 @ 13:09 by Jennifer Valdes) Perforation of sigmoid colon due to diverticulitis (Acute) Small bowel obstruction (Acute) Hyponatremia (Acute) Hypokalemia (Acute) Postoperative day #1. Awaiting GI function. Will DC Scott catheter increase ambulation. Will remain on clear liquids.
[2019-03-25 14:00] VITALS: BP 134/87; PULSE 87; RESP 18; TEMP 37.1; O2SAT 98
--- NOTE | 2019-03-25 15:11 | CASEMGMT ---
RN CM Assessment Presentation: lap sigmoid diverticulitis Intro role of CM and purpose of RN CM assessment. Demographics, PCP and Pharmacy verified. PCP: none. Pt was seeing Dr. Araujo until he moved to [place]. Now she plans to f/u with [facility] in [place] for follow up. Pt denied needing assistance- states she knows to contact [facility] and they will assist with changing physicians, Specialists: Dr. Gupta. Pt will f/u on dc with Dr. Gupta Preferred Pharmacy: [facility] Insurance: MMO Prescription Benefit: yes LNOK: , Byron Abdul Living Arrangements: Lives independently, no care needs identified. Transportation: drives and drives DME: none HHC: none Patient DC goals: Home DC PLAN: Home Sary OCONNELL RN AC
[2019-03-25 20:00] VITALS: BP 126/70; PULSE 86; RESP 16; TEMP 37.2; O2SAT 94
[2019-03-26] MEDS: Acetaminophen 500 MG Tablet 1000 MG PO ×2 (00:15→06:52)
[2019-03-26 03:30] VITALS: BP 110/63; PULSE 77; RESP 16; TEMP 37.1; O2SAT 95
--- NOTE | 2019-03-26 07:17 | DCINST_ITS ---
Discharge Diet: Light diet - advance as tolerated - If you have questions about your diet instructions, please talk to your doctor. Discharge Activity: May Not Drive - for 1 week or while taking narcotic pain medicine. May shower in (days): 1 Lifting Restrictions: 10 pounds Call your doctor if your incision/area has: Continuous Slow Oozing, Sudden Increased Bleeding, Increased Pain/ Swelling, Increased Redness, Foul Smelling Discharge Call your doctor if you observe: Fever of 101 or Higher Suture Line Care: Avoid Pulling/Pushing, Avoid Pinching/Bending Additional Dressing/Incision Instructions:: Change or remove dressing in 4 days. Leave steri-strips in place for 1 week. Allergies/Adverse Reactions: Allergies No Known Allergies Allergy (Verified 03/17/19 13:58) Medications to take at Discharge glucosamine 750 lt-ojzbguedwf-bsc no.1 625 mg-C 30 xj-aszf-dbkd tablet 1 tab PO DAILY 01/29/19 multivitamin,qi-tigx-teufwipc tablet 1 tab PO DAILY 01/29/19 L.acidoph,Paracasei, B.lactis [Probiotic] 1 ea PO DAILY 02/06/19 Calcium Carbonate/Vitamin D3 [Calcium 600 + Vit D Tablet] 1 ea PO DAILY 03/17/19 [place]-3 Fatty Acids [Fish Oil] 500 mg PO DAILY 03/24/19 Oxycodone HCl/Acetaminophen [Percocet 5/325] 1 - 2 tab PO Q4H PRN PRN 6 Days #30 tab 03/26/19 The following prescriptions were given: Oxycodone HCl/Acetaminophen [Percocet 5/325] 1 - 2 tab PO Q4H PRN PRN 6 Days #30 tab PRN Reason: Pain Prescription Printed Primary Care Physician: Care Physician,No Primary [Primary Care Provider] - Test Results: Test results from this visit will be discussed in further detail at your follow- up appointment, if applicable. Please Follow Up With: Juan Alberto Gupta MD - [phone] When: Call to make an appointment to be seen in about 10 days.
--- NOTE | 2019-03-26 07:19 | DS.PCM_ITS ---
Discharge Date and Diagnosis - Problem List Patient Problems: Active and Suspected Problems (Last Reviewed 03/17/19 @ 13:09 by Jennifer Valdes) Perforation of sigmoid colon due to diverticulitis (Acute) Date of Admission: 03/24/19 - Primary Discharge Diagnosis Active and Suspected Problems (Last Reviewed 03/17/19 @ 13:09 by Jennifer Valdes) Perforation of sigmoid colon due to diverticulitis (Acute) Hospital Course and Treatment Operations: - - Exploratory laparoscopy with drain placement. Laparoscopic sigmoid colectomy (low anterior resection) Summary of Care Provided: The patient is a 63 year old F presented for a laparoscopic sigmoid colectomy secondary to perforation resulting in a small bowel obstruction. She tolerated the operation well she started to have bowel movements on postoperative day #2 and subsequently was discharged home. Her incisions were clean and dry she was tolerating liquids. Patient Problems: Active and Suspected Problems (Last Reviewed 03/17/19 @ 13:09 by Jennifer Valdes) Perforation of sigmoid colon due to diverticulitis (Acute) - Physical Exam General: Alert, Oriented x3 Abdomen: Soft, Non Tender, Non-Distended Vital Signs Temp Pulse Resp BP Pulse Ox 98.8 F 77 16 110/63 95 03/26/19 03:30 03/26/19 03:30 03/26/19 03:30 03/26/19 03:30 03/26/19 03:30 Oxygen Flow Rate (L/min) 6 Oxygen Delivery Method Room Air Weight: 158 lb 8.198 oz Body Mass Index (BMI) 25.5 Intake and Output for Last 24 Hours 03/24/19 03/25/19 03/26/19 23:59 23:59 23:59 Intake Total 2971 / 4261 4074 / 4574 800 / 800 Output Total 1460 / 4160 3620 / 3620 Balance 1511 / 101 454 / 954 800 / 800 Discharge Diet: Light diet - advance as tolerated - If you have questions about your diet instructions, please talk to your doctor. Discharge Activity: May Not Drive - for 1 week or while taking narcotic pain medicine. May shower in (days): 1 Call your doctor if your incision/area has: Continuous Slow Oozing, Sudden Increased Bleeding, Increased Pain/ Swelling, Increased Redness, Foul Smelling Discharge Call your doctor if you observe: Fever of 101 or Higher Suture Line Care: Avoid Pulling/Pushing, Avoid Pinching/Bending Additional Dressing/Incision Instructions:: Change or remove dressing in 4 days. Leave steri-strips in place for 1 week. Home Medications: Medications to take at Discharge glucosamine 750 vy-aylokyugvy-mzv no.1 625 mg-C 30 ui-ifab-pwcq tablet 1 tab PO DAILY 01/29/19 multivitamin,pb-agyj-fqsbwahf tablet 1 tab PO DAILY 01/29/19 L.acidoph,Paracasei, B.lactis [Probiotic] 1 ea PO DAILY 02/06/19 Calcium Carbonate/Vitamin D3 [Calcium 600 + Vit D Tablet] 1 ea PO DAILY 03/17/19 [place]-3 Fatty Acids [Fish Oil] 500 mg PO DAILY 03/24/19 Oxycodone HCl/Acetaminophen [Percocet 5/325] 1 - 2 tab PO Q4H PRN PRN 6 Days #30 tab 03/26/19 Following Prescrptions Were Given to Patient: Oxycodone HCl/Acetaminophen [Percocet 5/325] 1 - 2 tab PO Q4H PRN PRN 6 Days #30 tab PRN Reason: Pain Prescription Printed Primary Care Physician: Care Physician,No Primary [Primary Care Provider] - Please Follow Up With: Juan Alberto Gupta MD - [phone] When: Call to make an appointment to be seen in about 10 days. Medical Necessity - Tobacco Use Smoking Status: Never smoker Tobacco Use: Non-smoker Meaningful Use Info Meaningful Use Diagnoses (Choose all that apply): None applicable
[2019-03-26 09:00] VITALS: RESP 18
[2019-03-26 09:20] VITALS: BP 116/72; PULSE 89; RESP 16; TEMP 36.9; O2SAT 100
== END 2019-03-26 09:25 | disposition home or self-care (01) | DRG 331 ==
LOC: ACINP 05:18 → MS3 03-26 09:43 → MS2 03-26 09:44
PROVIDERS: Admitting Provider Surgery; Referring Provider Surgery; Visit Provider Surgery
PROC: 0DBN4ZZ Excision of Sigmoid Colon, Percutaneous Endoscopic Approach (ICD-10-PCS; CPT 44204; principal; 2019-03-24 06:50)
DX: K57.20 Diverticulitis of large intestine with perforation and abscess without bleeding (principal)
CPT/HCPCS: 36415; 80048; 82962; 85027; 88304; 88307; 93005; J7050; J7120; C1760; C1769; J2405

== ENCOUNTER 2025-04-26 21:00 | Emergency (ER) | payer MEDICARE, SELFPAY ==
[2025-04-26 21:01] VITALS: BP 176/95; PULSE 111; RESP 18; TEMP 36.9; O2SAT 100; BMI 27.8
--- NOTE | 2025-04-26 21:42 | EKG12_ITS ---
Test Reason : HYPERTENSION Blood Pressure : */* mmHG Vent. Rate : 80 BPM Atrial Rate : 80 BPM P-R Int : 160 ms QRS Dur : 90 ms QT Int : 394 ms P-R-T Axes : 54 34 40 degrees QTcB Int : 454 ms Normal sinus rhythm Normal ECG Confirmed by Addison Ann ([id number]), greeting card editor CHANTEL GILBERT ([id number]) on 04/27/2025 11:44:23 AM Referred By: Confirmed By: Addison Ann
--- NOTE | 2025-04-26 21:42 | EKG12_ITS ---
Test Reason : HYPERTENSION Blood Pressure : */* mmHG Vent. Rate : 80 BPM Atrial Rate : 80 BPM P-R Int : 160 ms QRS Dur : 90 ms QT Int : 394 ms P-R-T Axes : 54 34 40 degrees QTcB Int : 454 ms Normal sinus rhythm Normal ECG Confirmed by Addison Ann ([id number]), digital editor CHANTEL GILBERT ([id number]) on 04/27/2025 11:44:23 AM Referred By: Confirmed By: Addison Ann
--- NOTE | 2025-04-26 22:10 | RAD_ITS ---
PROCEDURE: CHEST PA AND LATERAL 04/26/2025 REASON FOR EXAM: COUGH TECHNIQUE: CHEST PA AND LATERAL COMPARISON: None available. FINDINGS: Hardware: None Heart: The heart size is normal. Mediastinum: The mediastinal contour is unremarkable. Lungs: The lungs are clear. Bones: The bones are unremarkable. RAD/Chest PA and Lateral IMPRESSION: NO ACUTE FINDINGS. Reading [facility]
--- NOTE | 2025-04-26 22:10 | RAD_ITS ---
PROCEDURE: CHEST PA AND LATERAL 04/26/2025 REASON FOR EXAM: COUGH TECHNIQUE: CHEST PA AND LATERAL COMPARISON: None available. FINDINGS: Hardware: None Heart: The heart size is normal. Mediastinum: The mediastinal contour is unremarkable. Lungs: The lungs are clear. Bones: The bones are unremarkable. RAD/Chest PA and Lateral IMPRESSION: NO ACUTE FINDINGS. Reading [facility]
[2025-04-26 22:12] VITALS: O2SAT 100
[2025-04-26] MEDS: 0.9% Normal Saline (1000mL) 1,000 ML 999 ML IV (22:16)
[2025-04-26 22:20] LABS: Hematocrit 38.1 % (37-47); Hemoglobin 13.3 g/dL (12.0-15.0); Immature Granulocytes Count 0.030 X10^3/uL (0.0-0.0); Mean Corp Hgb Conc 34.9 g/dL (32-36); Mean Corpuscular Volume 89.4 fL (81-99); Mean Platelet Vol. 10.7 fl (6.2-12.0); NRBC Flagged by Analyzer 0 % (0-5); Platelet Count 300 K/mm3 (150-450); RBC Distribution Width CV 13.1 % (11.6-14.6); RBC Distribution Width SD 42.7 fl (35.1-43.9); Red Blood Count 4.26 M/mm3 (4.2-5.4); White Blood Count 8.4 K/mm3 (4.4-11.0)
[2025-04-26 22:25] LABS: Mucous, Urine 0 SEEN /hpf (<or=2+)
[2025-04-26 22:28] LABS: Color, Urine Yellow (Yellow); Glucose, Dipstick Normal (Normal); Ketone-Dipstick Negative (Negative); Leukocyte Esterase-Dipstick Negative /ul (Negative); Nitrite-Dipstick Negative (Negative); Occult Blood-Urine Negative /ul (Negative); Protein-Dipstick Negative (Negative); Specific Gravity, Urine 1.005 (1.002-1.030); Urine Bilirubin Dipstick Negative (Negative)
--- OUTSIDE RECORDS SUMMARY | 2025-04-26 22:28 | XMS RPT_ITS | CCD ---
Author Organization [facility] Care Team Providers Care Medical Claims Assistant Name Role Phone NERY MUSA (YOVANY) Referring WENDY Burgess (YOVANY) Attending Unavailable Allergies Allergy Classification Reported Allergen(s) Allergy Type Date of Onset Reaction(s) Facility (1 source) Ibuprofen; Translations: [IBUPROFEN] Drug Allergy 03-18-2006 [facility] Repository Problems Problem Classification Problem Date Documented Da te Episodic/Chronic Nausea and vomiting (1 source) Nausea with vomiting, unspecified; Translations: [Nausea with vomiting, unspecified] Onset: 12-07-2018 Episodic Unclassified (1 source) discharge Onset: 04-01-2018 Results Test Name Value Interpretation Reference Range Facil ity CNOVon 12-07-2018 CNOV Office Visit ([facility] ) CRISTIAN LUNA ([id number]) 1955 F Date Time Provider Department 12/07/18 11:15 AM NERY MUSA) [facility] During your visit today, we recorded the following information about you: Temperature Pulse Respiration Blood pressure 98.8 degrees 112/minute 16/minute 148/88 Weight 72.2 kg Nery Musa APRN.CNP 12/07/2018 1:18 PM Signed Subjective HPI Cristianoral Abdul is a 63 year old female who presents with vomiting for the last 2.5 days. She states it started like a viral illness with chills and body aches, then she had diarrhea for one day. She was able to keep some liquids down yesterday but vomited at home this morning. She took aspirin for body aches. She has had some gassy pain but denies severe pain. No fever at home. Review of Systems Constitutional: Positive for chills. Negative for fever. Respiratory: Negative. Negative for cough and shortness of breath. Cardiovascular: Negative. Negative for chest pain. Gastrointestinal: Positive for abdominal pain (gas pain), diarrhea, nausea and vomiting. Genitourinary: Negative. Musculoskeletal: Positive for myalgias (initially but now resolved. ). Skin: Negative. BP 148/88 Pulse 112 Temp 37.1 ?C (98.8 ?F) (Left Tympanic) Resp 16 Wt 72.2 kg (159 lb 3.2 oz) BMI 26.09 kg/m? PAST MEDICAL HISTORY Diagnosis Date - Ankle fracture 2012 left - History of gestational diabetes mellitus - PMH - PAST MEDICAL HISTORY OF JOINT GRINDING PAST SURGICAL HISTORY Procedure Laterality Date - PAST SURGICAL HISTORY OF WISDOM TEETH - PAST SURGICAL HISTORY OF -- ORIF left fibula - REMOVAL DEEP IMPLANT 02/13/2013 Left ankle ALLERGIES Motrin [Ibuprofen] MEDICATIONS Glucosamine and Mnhrubxqb-ZU-Vpz8 211-948-66-0.5 mg ORAL Tab Take by mouth once daily. Vienna-3 Fatty Acids (FISH OIL) 500 mg ORAL Cap Take by mouth once daily. DAILY MULTIPLE TAB CALCIUM 500+D 500 MG-200 UNIT TAB FAMILY HISTORY Problem Relation Age of Onset - Lipids Mother lymphoma - Cancer Mother - Hypertension Father ATRIAL FIB. Social History Tobacco Use - Smoking status: Never Smoker - Smokeless tobacco: Never Used - Tobacco comment: smoked small amount and quit 1 yrs ago Substance Use Topics - Alcohol use: Yes Alcohol/week: 6.0 oz Types: 4 Cans of Beer (12oz) per week Comment: couple times a week - Drug use: No Objective Physical Exam Constitutional: She is well-developed, well-nourished, and in no distress. Cardiovascular: Normal rate, regular rhythm and normal heart sounds. Pulmonary/Chest: Effort normal. No tachypnea. No respiratory distress. She has no decreased breath sounds. She has no wheezes. She has rales in the right lower field and the left lower field. Abdominal: Soft. Bowel sounds are normal. She exhibits distension. She exhibits no mass. There is no hepatosplenomegaly. There is no tenderness. There is no rebound and no guarding. Neurological: She is alert. Skin: Skin is warm and dry. No rash noted. Nursing note and vitals reviewed. ASSESSMENT/PLAN: 1. Intractable vomiting with nausea, unspecified vomiting type - ICD9: 536.2, ICD10: R11.2 - XR CHEST 2V FRONTAL/LAT. My reading: negative. Radiologist IMPRESSION: The lungs are clear. ?There is no pleural effusion. ?The cardiac mediastinal silhouette is within limits of normal. ?Osseous structures are unremarkable. Trade Manager: SKYE ? Transcribe Date/Time: Dec 07 2018 12:29P Dictated by : EREN HAHN MD - ONDANSETRON 4 MG DISINTEGRATING TABLET- given in office for nausea/vomiting. - PROMETHAZINE 25 MG TABLET - Take zofran every 6 hours as needed at home. Phenergan if you cannot get the zofran due to insurance. - If you continue to vomit and cannot keep fluids down, you must go to the emergency room for hydration and further testing. - Discussed red flags and need for immediate medical evaluation if any occur. - Discussed supportive care treatment with fluids, rest and analgesia. - Discussed expected course of illness Nery Musa APRN.YOVANY Musa APRN.CNP 12/07/2018 12:43 PM Addendum ASSESSMENT/PLAN: 1. Intractable vomiting with nausea, unspecified vomiting type - ICD9: 536.2, ICD10: R11.2 - XR CHEST 2V FRONTAL/LAT. My reading: negative. Radiologist IMPRESSION: The lungs are clear. ?There is no pleural effusion. ?The cardiac mediastinal silhouette is within limits of normal. ?Osseous structures are unremarkable. Trade Manager: SKYE ? Transcribe Date/Time: Dec 07 2018 12:29P Dictated by : EREN HAHN MD - ONDANSETRON 4 MG DISINTEGRATING TABLET- given in office for nausea/vomiting. - PROMETHAZINE 25 MG TABLET - Take zofran every 6 hours as needed at home. Phenergan if you cannot get the zofran due to insurance. - If you continue to vomit and cannot keep fluids down, you must go to the emergency room for hydration and further testing. - Discussed red flags and need for immediate medical evaluation if any occur. - Discussed supportive care treatment with fluids, rest and analgesia. - Discussed expected course of illness Nery Musa APRN.PROFILER HAND VOMITING Vomiting can be caused by many different medical problems (stomach trouble, nervous system problems, alcohol and drug toxicity, infections). Whatever the cause, repeated vomiting can lead to dehydration and severe weakness. The treatment for vomiting includes: ~Rest. Do not drink or eat anything for at least 1 hour, or until the stomach settles. Start drinking small amounts of clear liquids (water, sodas, Gatorade, juices) as tolerated ~Medication to stop vomiting (anti-emetic drugs) may be given by injection, rectal suppository, or orally, as needed ~After you can keep down clear liquids, other light foods (gelatin, soup, bread) can be started. Avoid alcohol, dairy products, and richer foods for several days until you are completely better. Please call your doctor right away if your condition is not better in 1-2 days. Call right away or go to the emergency department if you cannot take any oral fluids, if you vomit blood, if you have increased pain, fainting, fever, or other serious symptoms. Referring Provider: SELF [200] Allergies As of Date: 12/07/2018 Noted Allergy Reaction MOTRIN (IBUPROFEN) 03/18/2006 8 - GI Upset Date Reviewed: 12/07/2018 Reviewed by: Amara Iyer Ma - Fully Assessed Reason for Visit: Flu Like Symptoms [267] Primary Visit Diagnosis:Intractable vomiting with nausea, unspecified vomiting type [R11.2] Order(s):XR CHEST 2V FRONTAL/LAT [[id number]] Order #: [id number] FUTURE [] ondansetron orally disintegrating 4 mg tab(s) (ZOFRAN ODT)Disp: Rfl: ondansetron orally disintegrating (ZOFRAN ODT) 4 mg disintegrating tabletTake 1 tablet by mouth every 8 hours as needed.Disp: 9 tabletRfl: 0 promethazine (PHENERGAN) 25 mg tabletTake 1 tablet by mouth every 6 hours as needed.Disp: 12 tabletRfl: 0 Prescriptions as of 12/07/2018 Sig: * GLUCOSAMINE-CHONDROITIN -MV-SD* Take by mouth once daily. * OMEGA-3 FATTY ACIDS 500 MG CA* Take by mouth once daily. * DAILY MULTIPLE TABLET * CALCIUM 500 + D 500 MG (1,250* ONDANSETRON 4 MG DISINTEGRATI* Take 1 tablet by mouth every * PROMETHAZINE 25 MG TABLET Take 1 tablet by mouth every * Problem List As Of Date 12/07/2018 Noted Resolved Post-menopausal [Z78.0] INVALID FOR* Left fibular fracture [S82.402A] INVALID FOR* Other instructions from your clinician: ASSESSMENT/PLAN: 1. Intractable vomiting with nausea, unspecified vomiting type - ICD9: 536.2, ICD10: R11.2 - XR CHEST 2V FRONTAL/LAT. My reading: negative. Radiologist IMPRESSION: The lungs are clear. ?There is no pleural effusion. ?The cardiac mediastinal silhouette is within limits of normal. ?Osseous structures are unremarkable. Trade Manager: SKYE ? Transcribe Date/Time: Dec 07 2018 12:29P Dictated by : EREN HAHN MD - ONDANSETRON 4 MG DISINTEGRATING TABLET- given in office for nausea/vomiting. - PROMETHAZINE 25 MG TABLET - Take zofran every 6 hours as needed at home. Phenergan if you cannot get the zofran due to insurance. - If you continue to vomit and cannot keep fluids down, you must go to the emergency room for hydration and further testing. - Discussed red flags and need for immediate medical evaluation if any occur. - Discussed supportive care treatment with fluids, rest and analgesia. - Discussed expected course of illness Nery Musa, SERINA.PROFILER HAND VOMITING Vomiting can be caused by many different medical problems (stomach trouble, nervous system problems, alcohol and drug toxicity, infections). Whatever the cause, repeated vomiting can lead to dehydration and severe weakness. The treatment for vomiting includes: ~Rest. Do not drink or eat anything for at least 1 hour, or until the stomach settles. Start drinking small amounts of clear liquids (water, sodas, Gatorade, juices) as tolerated ~Medication to stop vomiting (anti-emetic drugs) may be given by injection, rectal suppository, or orally, as needed ~After you can keep down clear liquids, other light foods (gelatin, soup, bread) can be started. Avoid alcohol, dairy products, and richer foods for several days until you are completely better. Please call your doctor right away if your condition is not better in 1-2 days. Call right away or go to the emergency department if you cannot take any oral fluids, if you vomit blood, if you have increased pain, fainting, fever, or other serious symptoms. Prescriptions ordered this encounter Disp Refills Start End ONDANSETRON 4 MG DISINTEGRATING TABL* 12 t* 0 12/07/2018 12/07/2018 Route: ORAL Sig: Take 1 tablet by mouth every 6 hours as needed for Nausea/Vomiting. ONDANSETRON 4 MG DISINTEGRATING TABL* 12/07/2018 12/07/2018 Route: ORAL ONDANSETRON 4 MG DISINTEGRATING TABL* 9 ta* 0 12/07/2018 Route: ORAL Sig: Take 1 tablet by mouth every 8 hours as needed. PROMETHAZINE 25 MG TABLET 12 t* 0 12/07/2018 Route: ORAL Sig: Take 1 tablet by mouth every 6 hours as needed. Medications Discontinued During This Encounter ondansetron orally disintegrating (Z* 12 t* 0 12/07/2018 12/07/2018 Route: ORAL Sig: Take 1 tablet by mouth every 6 hours as needed for Nausea/Vomiting. Disc: Reason for discontinue is not on file. Encounter Status:Closed by NERY MUSA on 12/07/18 [facility] PROGRESSon 12-07-2018 Protein mass conc HNO ID: [id number] Author: Wes Joaquin (Rt) Service: ? Author Type: Lithographic Etcher Type: Progress Notes Filed: 12/07/2018 12:26 PM Note Text: Radiology Service Progress Note PATIENT NAME: Cristian Abdul DATE OF SERVICE: December 07, 2018 TIME: 12:19 PM PATIENT IDENTITY VERIFICATION COMPLETED USING TWO (2) METHODS: Patient confirmed name verbally and Date of . PATIENT GENDER DATA: Female. status: : No status: NO. PATIENT RELEVANT IMPLANT DATA REVIEWED: Not Applicable RADIOLOGY DEPARTMENT: General X-ray: Exam(s) Completed: Chest X-Ray PERIPHERAL IV DATA: Not applicable SIGNED BY: RT Emani December 07, 2018 12:19 PM [facility] Protein mass conc HNO ID: [id number] Author: Nery Musa Service: ? Author Type: Nurse Practitioner Type: Progress Notes Filed: 12/07/2018 1:18 PM Note Text: Subjective HPI Cristian Abdul is a 63 year old female who presents with vomiting for the last 2.5 days. She states it started like a viral illness with chills and body aches, then she had diarrhea for one day. She was able to keep some liquids down yesterday but vomited at home this morning. She took aspirin for body aches. She has had some gassy pain but denies severe pain. No fever at home. Review of Systems Constitutional: Positive for chills. Negative for fever. Respiratory: Negative. Negative for cough and shortness of breath. Cardiovascular: Negative. Negative for chest pain. Gastrointestinal: Positive for abdominal pain (gas pain), diarrhea, nausea and vomiting. Genitourinary: Negative. Musculoskeletal: Positive for myalgias (initially but now resolved. ). Skin: Negative. BP 148/88 Pulse 112 Temp 37.1 ?C (98.8 ?F) (Left Tympanic) Resp 16 Wt 72.2 kg (159 lb 3.2 oz) BMI 26.09 kg/m? PAST MEDICAL HISTORY Diagnosis Date - Ankle fracture 2012 left - History of gestational diabetes mellitus - PMH - PAST MEDICAL HISTORY OF JOINT GRINDING PAST SURGICAL HISTORY Procedure Laterality Date - PAST SURGICAL HISTORY OF WISDOM TEETH - PAST SURGICAL HISTORY OF 2-20-13 ORIF left fibula - REMOVAL DEEP IMPLANT 02/13/2013 Left ankle ALLERGIES Motrin [Ibuprofen] MEDICATIONS Glucosamine and Wzbsjhhiw-QG-Hhs9 978-748-42-0.5 mg ORAL Tab Take by mouth once daily. Vienna-3 Fatty Acids (FISH OIL) 500 mg ORAL Cap Take by mouth once daily. DAILY MULTIPLE TAB CALCIUM 500+D 500 MG-200 UNIT TAB FAMILY HISTORY Problem Relation Age of Onset - Lipids Mother lymphoma - Cancer Mother - Hypertension Father ATRIAL FIB. Social History Tobacco Use - Smoking status: Never Smoker - Smokeless tobacco: Never Used - Tobacco comment: smoked small amount and quit 1 yrs ago Substance Use Topics - Alcohol use: Yes Alcohol/week: 6.0 oz Types: 4 Cans of Beer (12oz) per week Comment: couple times a week - Drug use: No Objective Physical Exam Constitutional: She is well-developed, well-nourished, and in no distress. Cardiovascular: Normal rate, regular rhythm and normal heart sounds. Pulmonary/Chest: Effort normal. No tachypnea. No respiratory distress. She has no decreased breath sounds. She has no wheezes. She has rales in the right lower field and the left lower field. Abdominal: Soft. Bowel sounds are normal. She exhibits distension. She exhibits no mass. There is no hepatosplenomegaly. There is no tenderness. There is no rebound and no guarding. Neurological: She is alert. Skin: Skin is warm and dry. No rash noted. Nursing note and vitals reviewed. ASSESSMENT/PLAN: 1. Intractable vomiting with nausea, unspecified vomiting type - ICD9: 536.2, ICD10: R11.2 - XR CHEST 2V FRONTAL/LAT. My reading: negative. Radiologist IMPRESSION: The lungs are clear. ?There is no pleural effusion. ?The cardiac mediastinal silhouette is within limits of normal. ?Osseous structures are unremarkable. Trade Manager: SKYE ? Transcribe Date/Time: Dec 07 2018 12:29P Dictated by : EREN HAHN MD - ONDANSETRON 4 MG DISINTEGRATING TABLET- given in office for nausea/vomiting. - PROMETHAZINE 25 MG TABLET - Take zofran every 6 hours as needed at home. Phenergan if you cannot get the zofran due to insurance. - If you continue to vomit and cannot keep fluids down, you must go to the emergency room for hydration and further testing. - Discussed red flags and need for immediate medical evaluation if any occur. - Discussed supportive care treatment with fluids, rest and analgesia. - Discussed expected course of illness Nery Musa APRN.PROFILER HAND [facility] XR CHEST 2V FRONTAL/LATon XR CHEST 2V FRONTAL/LAT * * *Final Report* * * DATE OF EXAM: Dec 07 2018 12:27PM WOX [id number] - XR CHEST 2V FRONTAL/LAT / PROCEDURE REASON: Intractable vomiting with nausea, unspecified vomiting type * * * * Physician Interpretation * * * * EXAMINATION: CHEST RADIOGRAPH (2 VIEW FRONTAL and LATERAL) CLINICAL HISTORY: Intractable vomiting with nausea, unspecified vomiting type MQ: XC2_5 Comparison: None RESULT: See impression. IMPRESSION: The lungs are clear. There is no pleural effusion. The cardiac mediastinal silhouette is within limits of normal. Osseous structures are unremarkable. Trade Manager: SKYE Transcribe Date/Time: Dec 07 2018 12:29P Dictated by : EREN HAHN MD This examination was interpreted and the report reviewed and electronically signed by: EREN HAHN MD on Dec 07 2018 12:36PM EST [id number] [facility] Bact/Cand Vag Grm Ston 04-01 Bact/Cand Vag Grm St Sp. Request/Comment: - Swab Smear Result - BACTERIAL VAGINOSIS RESULT: Stain results indicate mixed morphotypes consistent with transition from normal vaginal pastor. No Yeast observed No Polymorphonuclear Leukocytes [facility] Comment on above: Performed By: #### B VCNSM #### [facility] [address] [address] CNOVon 04-01-2018 CNOV Office Visit ([facility]OO[facility]) CRISTIAN LUNA ([id number]) 1955 F Date Time Provider Department 04/01/18 11:30 AM WENDY MENDOZA (PROFILER HAND) [facility] During your visit today, we recorded the following information about you: Blood pressure Weight 126/80 69.7 kg Wendy Mendoza APRN.YOVANY 04/01/2018 1:06 PM Signed Cristian Abdul is a 62 year old female who presents for problem visit Vaginal discharge and spotting. 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 [place] discharge that was a little yellowish later in the day x 1 occurrence only. No cramping. Has notice a mild vaginal burning this morning but is unsure if she is just very aware and doubts that she would noticed it at any other time. Postmenopausal at age 48. Denies vaginal irritation, odor, itching. Is sexually active with same partner x 38 years. No concern for STDs. No history of any PMB. PAST MEDICAL HISTORY Diagnosis Date - Ankle fracture 2012 left - History of gestational diabetes mellitus - PMH - PAST MEDICAL HISTORY OF JOINT GRINDING PAST SURGICAL HISTORY Procedure Laterality Date - PAST SURGICAL HISTORY OF WISDOM TEETH - PAST SURGICAL HISTORY OF 2-20-13 ORIF left fibula - REMOVAL DEEP IMPLANT 02/13/2013 Left ankle FAMILY HISTORY Problem Relation Age of Onset - Hypertension Father ATRIAL FIB. - Lipids Mother lymphoma - Cancer Mother Social History Marital status: Spouse name: CRISTELA Years of education: Number of children: 3 Occupational History Occupation Employer Comment PHARMACIST RETIRED Social History Main Topics Smoking status: Never Smoker Smokeless tobacco: Never Used Comment: smoked small amount and quit 1 yrs ago Alcohol use: Yes 6.0 oz/week Cans of Beer (12oz): 4 per week Comment: couple times a week Drug use: No Sexual activity: Yes Partners with: Male control/protection: Surgical Comment: vasectomy Current Outpatient Prescriptions: Glucosamine and Ceegiqqrm-SH-Esg9 546-387-72-0.5 mg ORAL Tab Take by mouth once daily. [place]-3 Fatty Acids (FISH OIL) 500 mg ORAL Cap Take by mouth once daily. DAILY MULTIPLE TAB CALCIUM 500+D 500 MG-200 UNIT TAB No current facility-administered medications for this visit. Allergies As of Date: 04/01/2018 Allergen Noted Reaction MOTRIN [IBUPROFEN] 03/18/2006 GI Upset Fully Assessed 03/31/2018 REVIEW OF SYSTEMS Abdomen: No bloating, early satiety, indigestion, or increased flatulence. No abdominal pain, nausea, vomiting, diarrhea, or constipation. Bladder: No dysuria, gross hematuria, urinary frequency, urinary urgency, or incontinence. General:: No fever, chills or weight loss Allergies and current medication updated:Yes EXAM: BP 126/80 Wt 153 lb 9.6 oz (69.7kg) GENERAL: pleasant, female in no apparent distress HEENT: Normocephalic, atraumatic, mucus membranes moist and no lesions NECK: Supple, full range of motion, no adenopathy and thyroid normal CHEST: Normal inspiratory effort ABDOMEN: soft, no masses and Mild tenderness in Generalized PELVIC: external genitalia normal, normal Bartholin's glands, urethra, Palmarejo's glands, no vulvar lesions, good vaginal support, physiologic discharge present, normal appearing perineal body and perianal region, cervical lesion 2 mm round area of ecchymosis vs varicosity at 6 o'clock BIMANUAL: uterus normal size, shape and consistency, no adnexal masses and non-tender NEURO: alert and oriented x3,exam grossly non-focal ASSESSMENT/PLAN: 1. Vaginal discharge - ICD9: 623.5, ICD10: N89.8 (primary diagnosis) - physiologic discharge on exam, no bleeding noted - 2 mm round area of ecchymosis vs varicosity at 6 o'clock - cervix - PAP FLUID CERVICAL SCREENING - BACT/KENNEDY VAG GRAM STAIN 2. Vaginal spotting - ICD9: 623.8, ICD10: N93.9 - no active bleeding - PAP FLUID CERVICAL SCREENING Will call personally with results. Pt to notify office if any further vaginal bleeding. Offered pelvic US which she declines at this time. Greater than 50% of visit spent face to face counseling with patient. Follow-up as needed. Wendy Mendoza APRN.YOVANY Mendoza APRN.CNP 04/01/2018 11:48 AM Signed Replens moisturizer RepHresh Probiotic - Florajen-3 Referring Provider: SELF [200] Allergies As of Date: 04/01/2018 Noted Allergy Reaction MOTRIN (IBUPROFEN) 03/18/2006 8 - GI Upset Date Reviewed: 04/01/2018 Reviewed by: Wendy ([employer]) Ruthie - Fully Assessed Reason for Visit: Vaginal Problem [117] Primary Visit Diagnosis:Vaginal discharge [N89.8] Other Visit Diagnosis:Vaginal spotting [N93.9] Order(s):PAP FLUID CERVICAL SCREENING [[id number]] Order #: [id number] BACT/KENNEDY VAG GRAM STAIN [SQBVCNSM] Order #: [id number] FUTURE Prescriptions as of 04/01/2018 Sig: * GLUCOSAMINE-CHONDROITIN -MV-SD* Take by mouth once daily. * OMEGA-3 FATTY ACIDS 500 MG CA* Take by mouth once daily. * DAILY MULTIPLE TABLET * CALCIUM 500 + D 500 MG (1,250* Problem List As Of Date 04/01/2018 Noted Resolved Post-menopausal [Z78.0] INVALID FOR* Left fibular fracture [S82.402A] INVALID FOR* Other instructions from your clinician: Replens moisturizer RepHresh Probiotic - Florajen-3 Encounter Status:Closed by WENDY MENDOZA on 04/01/18 [facility] CYTOLOGYon 04-01-2018 CYTOLOGY ADDITIONAL PROCEDURES PRESENT Specimen originated from [facility] Specimen #: [id number] Submitting Physician: WENDY MENDOZA CNP SPECIMEN SUBMITTED A: CERVICAL, SCREENING, FLUID FINAL DIAGNOSIS A. CERVICAL, SCREENING, FLUID Satisfactory for interpretation. Limited cellularity. Negative for intraepithelial lesion or malignancy. Atrophic specimen. Acute inflammation. This specimen has been analyzed by the ThinPrep Imaging System, an automated imaging and review system, which assists the laboratory in evaluating cells on ThinPrep Pap tests. Following automated imaging, selected arnold from every slide are reviewed by a sample patternmaker. KEENAN Grimes(ASCP) (Electronic Signature) ADDITIONAL PROCEDURE(S) HUMAN PAPILLOMA VIRUS Date Ordered: 04/02/2018 Date Reported: 04/03/2018 Procedure Results and Interpretation Negative for HPV DNA high risk type 16 by PCR. Negative for HPV DNA high risk type 18 by PCR. Negative for HPV DNA high risk types: 31,33,35,39,45,51,52,56 ,58,59,66,68 by PCR. This test was developed and its performance characteristics determined by [facility]'s [facility] [place] ([facility]). It has not been cleared or approved by the FDA. -[facility] is regulated under CLIA as qualified to perform high-complexity testing. This test is used for clinical purposes. It should not be regarded as investigational or for research. CLINICAL DATA MENOPAUSAL, HPV Testing: Yes, automatic HPV patients over 30 Date of Last Menstrual Period: Postmenopausal STAINS A: CERVICAL, SCREENING, FLUID THIN PREP INVESTMENT BANKER Delma Bliss M.D., [employer] Date of Report: 04/08/2018 Date of Procedure: 04/01/2018 Date of Receipt: 04/02/2018 Submitted by: WENDY MENDOZA CNP Location: [facility] Diagnostic interpretation performed at [facility], [address] [place] [address]. The Pap Smear is a screening test for cervical cancer. False negative results occur with all screening tests, emphasizing the need for rescreening at recommended intervals, and clinical correlation. [facility] HPV w/Genotypeon 04-01-2018 HPV HighRisk Other Negative for HPV DNA high risk types: 31,33,35,39,45,51,52,56 ,58,59,66,68 by PCR. [facility] Comment on above: Result Comment: This test was developed and its performance characteristics determined by [facility] [place] ([facility]). It has not been cleared or approved by the FDA. [facility] is regulated under CLIA as qualified to perform high-complexity testing. This test is used for clinical purposes. It should not be regarded as investigational or for research. Performed By: #### H PVHRR #### [place] [phone] HPV HighRisk Type 16 Negative Normal [facility] Comment on above: Performed By: #### H PVHRR #### [place] [phone] HPV HighRisk Type 18 Negative Normal [facility] Comment on above: Performed By: #### H PVHRR #### [place] [phone] PROGRESSon 04-01-2018 Protein mass conc HNO ID: [id number] Author: Wendy Mendoza Service: (none) Author Type: Nurse Practitioner Type: Progress Notes Filed: 04/01/2018 1:06 PM Note Text: Cristian Abdul is a 62 year old female who presents for problem visit Vaginal discharge and spotting. 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 [place] discharge that was a little yellowish later in the day x 1 occurrence only. No cramping. Has notice a mild vaginal burning this morning but is unsure if she is just very aware and doubts that she would noticed it at any other time. Postmenopausal at age 48. Denies vaginal irritation, odor, itching. Is sexually active with same partner x 38 years. No concern for STDs. No history of any PMB. PAST MEDICAL HISTORY Diagnosis Date - Ankle fracture 2013 left - History of gestational diabetes mellitus - PMH - PAST MEDICAL HISTORY OF JOINT GRINDING PAST SURGICAL HISTORY Procedure Laterality Date - PAST SURGICAL HISTORY OF WISDOM TEETH - PAST SURGICAL HISTORY OF 2-- ORIF left fibula - REMOVAL DEEP IMPLANT 02/13/2013 Left ankle FAMILY HISTORY Problem Relation Age of Onset - Hypertension Father ATRIAL FIB. - Lipids Mother lymphoma - Cancer Mother Social History Marital status: Spouse name: CRISTELA Years of education: Number of children: 3 Occupational History Occupation Employer Comment PHARMACIST RETIRED Social History Main Topics Smoking status: Never Smoker Smokeless tobacco: Never Used Comment: smoked small amount and quit 1 yrs ago Alcohol use: Yes 6.0 oz/week Cans of Beer (12oz): 4 per week Comment: couple times a week Drug use: No Sexual activity: Yes Partners with: Male control/protection: Surgical Comment: vasectomy Current Outpatient Prescriptions: Glucosamine and Tudpzqajn-FR-Dws7 734-045-60-0.5 mg ORAL Tab Take by mouth once daily. [place]-3 Fatty Acids (FISH OIL) 500 mg ORAL Cap Take by mouth once daily. DAILY MULTIPLE TAB CALCIUM 500+D 500 MG-200 UNIT TAB No current facility-administered medications for this visit. Allergies As of Date: 04/01/2018 Allergen Noted Reaction MOTRIN [IBUPROFEN] 03/18/2006 GI Upset Fully Assessed 03/31/2018 REVIEW OF SYSTEMS Abdomen: No bloating, early satiety, indigestion, or increased flatulence. No abdominal pain, nausea, vomiting, diarrhea, or constipation. Bladder: No dysuria, gross hematuria, urinary frequency, urinary urgency, or incontinence. General:: No fever, chills or weight loss Allergies and current medication updated:Yes EXAM: BP 126/80 Wt 153 lb 9.6 oz (69.7kg) GENERAL: pleasant, female in no apparent distress HEENT: Normocephalic, atraumatic, mucus membranes moist and no lesions NECK: Supple, full range of motion, no adenopathy and thyroid normal CHEST: Normal inspiratory effort ABDOMEN: soft, no masses and Mild tenderness in Generalized PELVIC: external genitalia normal, normal Bartholin's glands, urethra, Palmarejo's glands, no vulvar lesions, good vaginal support, physiologic discharge present, normal appearing perineal body and perianal region, cervical lesion 2 mm round area of ecchymosis vs varicosity at 6 o'clock BIMANUAL: uterus normal size, shape and consistency, no adnexal masses and non-tender NEURO: alert and oriented x3,exam grossly non-focal ASSESSMENT/PLAN: 1. Vaginal discharge - ICD9: 623.5, ICD10: N89.8 (primary diagnosis) - physiologic discharge on exam, no bleeding noted - 2 mm round area of ecchymosis vs varicosity at 6 o'clock - cervix - PAP FLUID CERVICAL SCREENING - BACT/KENNEDY VAG GRAM STAIN 2. Vaginal spotting - ICD9: 623.8, ICD10: N93.9 - no active bleeding - PAP FLUID CERVICAL SCREENING Will call personally with results. Pt to notify office if any further vaginal bleeding. Offered pelvic US which she declines at this time. Greater than 50% of visit spent face to face counseling with patient. Follow-up as needed. Wendy Mendoza APRN.YOVANY [facility] Encounters Encounter Date Encounter Type Care Provider Facility Start: 12-07-2018 End: 12-09-2018 [facility] Start: 12-07-2018 End: 12-09-2018 [facility] Start: 04-01-2018 End: 04-02-2018 Patient encounter procedure WENDY MENDOZA [facility] Summary Purpose Family History No Family History Records Found Advance Directives No Advanced Directives Records Found Additional Source Comments INFORMATION SOURCE (unrecogn ized section and content) DATE CREATED AUTHOR 12/12/2018 [facility] FOR RECORDS PERTAINING TO PATIENTS WHO ARE OR HAVE BEEN ENROLLED IN A CHEMICAL DEPENDENCY/SUBSTANCEABUSE PROGRAM, SOME INFORMATION MAY BE OMITTED. This clinical summary was aggregated from multiple sources. Caution should be exercised in using it in the provision of clinical care. This summary normalizes information from multiple sources, and as a consequence, information in this document may materially change the coding, format and clinical context of patient data. In addition, data may be omitted in some cases. CLINICAL DECISIONS SHOULD BE BASED ON THE PRIMARY CLINICAL RECORDS. [facility]. provides no warranty or guarantee of the accuracy or completeness of information in this document.
--- OUTSIDE RECORDS SUMMARY | 2025-04-26 22:28 | XMS RPT_ITS | CCD ---
Author Organization [facility] Care Team Providers Care [place] Plant Supervisor Name Role Phone NERY MUSA (YOVANY) Referring WENDY Burgess (YOVANY) Attending Unavailable Allergies Allergy Classification Reported Allergen(s) Allergy Type Date of Onset Reaction(s) Facility (1 source) Ibuprofen; Translations: [IBUPROFEN] Drug Allergy 03-18-2006 [facility] Repository Problems Problem Classification Problem Date Documented Da te Episodic/Chronic Nausea and vomiting (1 source) Nausea with vomiting, unspecified; Translations: [Nausea with vomiting, unspecified] Onset: 12-07-2018 Episodic Unclassified (1 source) discharge Onset: 04-01-2018 Results Test Name Value Interpretation Reference Range Facil ity CNOVon 12-07-2018 CNOV Office Visit (UCWSTR ) CRISTIAN LUNA ([id number]) 1955 F Date Time Provider Department 12/07/18 [...] ankle ALLERGIES Motrin [Ibuprofen] MEDICATIONS Glucosamine and Cbgxsnnnb-BD-Nyv4 023-895-11-0.5 mg ORAL Tab Take by mouth once daily. [place]-3 Fatty Acids (FISH OIL) 500 mg ORAL [...] limits of normal. ?Osseous structures are unremarkable. Sock Lining Examiner: SKYE ? Transcribe Date/Time: Dec 07 2018 [...] analgesia. - Discussed expected course of illness eNry Musa APRN.YOVANY Musa APRN.CNP 12/07/2018 12:43 PM Addendum ASSESSMENT/PLAN: 1. Intractable vomiting with nausea, unspecified vomiting type - ICD9: 536.2, ICD10: R11.2 - XR CHEST 2V FRONTAL/LAT. My reading: negative. Radiologist IMPRESSION: The lungs are clear. ?There is no pleural effusion. ?The cardiac mediastinal silhouette is within limits of normal. ?Osseous structures are unremarkable. Sock Lining Examiner: SKYE ? Transcribe Date/Time: Dec 07 2018 [...] Discussed expected course of illness Nery Musa APRN.SORT OPERATIONS SUPERVISOR VOMITING Vomiting can be caused by many [...] vomiting type [R11.2] Order(s):XR CHEST 2V FRONTAL/LAT [[id number]] Order #: [id number] FUTURE [] ondansetron orally disintegrating 4 mg tab(s) (ZOFRAN ODT)Disp: Rfl: ondansetron orally disintegrating (ZOFRAN ODT) 4 mg disintegrating tabletTake 1 tablet by mouth every 8 hours as needed.Disp: 9 tabletRfl: 0 promethazine (PHENERGAN) 25 mg tabletTake 1 tablet by mouth every 6 hours as needed.Disp: 12 tabletRfl: 0 Prescriptions as of 12/07/2018 Sig: * GLUCOSAMINE-CHONDROITIN -MV-OK* Take by mouth once daily. * OMEGA-3 [...] limits of normal. ?Osseous structures are unremarkable. Sock Lining Examiner: SKYE ? Transcribe Date/Time: Dec 07 2018 [...] Discussed expected course of illness Nery Musa, SERINA.SORT OPERATIONS SUPERVISOR VOMITING Vomiting can be caused by many [...] Status:Closed by NERY MUSA on 12/07/18 Normal [facility] PROGRESSon 12-07-2018 Protein mass conc HNO ID: [id number] Author: Wes Joaquin (Rt) Service: ? Author Type: Binding Dyer Type: Progress Notes Filed: 12/07/2018 12:26 PM [...] Emani December 07, 2018 12:19 PM Normal [facility] Protein mass conc HNO ID: [id number] Author: Nery Musa Service: ? Author Type: [...] ankle ALLERGIES Motrin [Ibuprofen] MEDICATIONS Glucosamine and Bfrgiekrb-VL-Nof4 721-063-49-0.5 mg ORAL Tab Take by mouth once daily. [place]-3 Fatty Acids (FISH OIL) 500 mg ORAL [...] limits of normal. ?Osseous structures are unremarkable. Sock Lining Examiner: SKYE ? Transcribe Date/Time: Dec 07 2018 [...] Discussed expected course of illness Nery Musa APRN.SORT OPERATIONS SUPERVISOR Normal [facility] XR CHEST 2V FRONTAL/LATon XR CHEST [...] limits of normal. Osseous structures are unremarkable. Sock Lining Examiner: SKYE Transcribe Date/Time: Dec 07 2018 12:29P Dictated by : EREN HAHN MD This examination was interpreted and the report reviewed and electronically signed by: EREN HAHN MD on Dec 07 2018 12:36PM EST [id number] Normal [facility] Bact/Cand Vag Grm Ston 04-01 Bact/Cand Vag Grm St Sp. Request/Comment: - Swab Smear Result - BACTERIAL VAGINOSIS RESULT: Stain results indicate mixed morphotypes consistent with transition from normal vaginal pastor. No Yeast observed No Polymorphonuclear Leukocytes Normal [facility] Comment on above: Performed By: #### B VCNSM #### [facility] [address] [address] CNOVon 04-01-2018 CNOV Office Visit (WOOB) CRISTIAN LUNA ([id number]) 1955 F Date Time Provider Department 04/01/18 11:30 AM WENDY MENDOZA (SORT OPERATIONS SUPERVISOR) WOOB During your visit today, we recorded the following information about you: Blood pressure Weight 126/80 69.7 kg Wendy Mendoza APRN.YOVANY 04/01/2018 1:06 PM Signed Cristian Abdul is a 62 year old female who presents for problem visit Vaginal discharge and spotting. 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 [place] discharge that was a little yellowish later [...] Comment: vasectomy Current Outpatient Prescriptions: Glucosamine and Ibnzndcod-WK-Efz5 287-462-45-0.5 mg ORAL Tab Take by mouth once daily. [place]-3 Fatty Acids (FISH OIL) 500 mg ORAL [...] external genitalia normal, normal Bartholin's glands, urethra, Santa Claus's glands, no vulvar lesions, good vaginal support, [...] Upset Date Reviewed: 04/01/2018 Reviewed by: Wendy (Appliance Service Representative) Ruthie - Fully Assessed Reason for Visit: Vaginal Problem [117] Primary Visit Diagnosis:Vaginal discharge [N89.8] Other Visit Diagnosis:Vaginal spotting [N93.9] Order(s):PAP FLUID CERVICAL SCREENING [[id number]] Order #: [id number] BACT/KENNEDY VAG GRAM STAIN [SQBVCNSM] Order #: [id number] FUTURE Prescriptions as of 04/01/2018 Sig: * GLUCOSAMINE-CHONDROITIN -MV-OK* Take by mouth once daily. * OMEGA-3 [...] Status:Closed by WENDY MENDOZA on 04/01/18 Normal [facility] CYTOLOGYon 04-01-2018 CYTOLOGY ADDITIONAL PROCEDURES PRESENT Specimen originated from [facility] Specimen #: [id number] Submitting Physician: WENDY MENDOZA CNP SPECIMEN SUBMITTED [...] from every slide are reviewed by a sausage tier. KEENAN Grimes(ASCP) (Electronic Signature) ADDITIONAL PROCEDURE(S) HUMAN PAPILLOMA VIRUS Date Ordered: 04/02/2018 Date Reported: 04/03/2018 Procedure Results and Interpretation Negative for HPV DNA high risk type 16 by PCR. Negative for HPV DNA high risk type 18 by PCR. Negative for HPV DNA high risk types: 31,33,35,39,45,51,52,56 ,58,59,66,68 by PCR. This test was developed and its performance characteristics determined by [facility] [place] ([facility]). It has not been cleared or approved by the FDA. -[facility] is regulated under CLIA as qualified to perform high-complexity testing. This test is used for clinical purposes. It should not be regarded as investigational or for research. CLINICAL DATA MENOPAUSAL, HPV Testing: Yes, automatic HPV patients over 30 Date of Last Menstrual Period: Postmenopausal STAINS A: CERVICAL, SCREENING, FLUID THIN PREP SOLAR INSTALLER PV Delma Bliss M.D., Supervisor Nutritional Yeast Date of Report: 04/08/2018 Date of Procedure: 04/01/2018 Date of Receipt: 04/02/2018 Submitted by: WENDY MENDOZA CNP Location: [facility] Diagnostic interpretation performed at [facility], [address] [place] [address]. The Pap Smear is a screening test for cervical cancer. False negative results occur with all screening tests, emphasizing the need for rescreening at recommended intervals, and clinical correlation. Normal [facility] HPV w/Genotypeon 04-01-2018 HPV HighRisk Other Negative for HPV DNA high risk types: 31,33,35,39,45,51,52,56 ,58,59,66,68 by PCR. Normal [facility] Comment on above: Result Comment: This test was developed and its performance characteristics determined by [facility] [place] ([facility]). It has not been cleared or approved by the FDA. [facility] is regulated under CLIA as qualified to perform high-complexity testing. This test is used for clinical purposes. It should not be regarded as investigational or for research. Performed By: #### H PVHRR #### [place] [phone] HPV HighRisk Type 16 Negative Normal [facility] Comment on above: Performed By: #### H PVHRR #### [place] [phone] HPV HighRisk Type 18 Negative Normal [facility] Comment on above: Performed By: #### H PVHRR #### [place] [phone] PROGRESSon 04-01-2018 Protein mass conc HNO ID: [id number] Author: Wendy Mendoza Service: (none) Author Type: Nurse Practitioner Type: Progress Notes Filed: 04/01/2018 1:06 PM Note Text: Cristian Abdul is a 62 year old female who presents for problem visit Vaginal discharge and spotting. 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 [place] discharge that was a little yellowish later [...] Comment: vasectomy Current Outpatient Prescriptions: Glucosamine and Qveocjcbm-XL-Hme1 577-522-28-0.5 mg ORAL Tab Take by mouth once daily. [place]-3 Fatty Acids (FISH OIL) 500 mg ORAL [...] external genitalia normal, normal Bartholin's glands, urethra, Santa Claus's glands, no vulvar lesions, good vaginal support, [...] Follow-up as needed. Wendy Mendoza APRN.YOVANY [facility]ale [facility] Encounters Encounter Date Encounter Type Care Provider Facility Start: 12-07-2018 End: 12-09-2018 [facility] Start: 12-07-2018 End: 12-09-2018 [facility]: 04-01-2018 End: 04-02-2018 Patient encounter procedure WEDNY MENDOZA [facility] Summary Purpose Family History No Family History Records Found Advance Directives No Advanced Directives Records Found Additional Source Comments INFORMATION SOURCE (unrecogn ized section and content) DATE CREATED AUTHOR 12/12/2018 [facility] FOR RECORDS PERTAINING TO PATIENTS WHO [...] BE BASED ON THE PRIMARY CLINICAL RECORDS. [employer] [facility]. provides no warranty or guarantee of the accuracy or completeness of information in this document.
[2025-04-26 22:29] LABS: Prothrombin Time (Protime)PT. 12.2 SECONDS (11.7-14.9)
[2025-04-26 22:30] VITALS: BP 167/77; PULSE 83; RESP 18; O2SAT 99
[2025-04-26 22:30] LABS: Partial Thromboplast Time 31.9 Seconds (24.1-36.2)
[2025-04-26 22:39] LABS: Red Blood Cells-Urine 0-5 SEEN /hpf (0-5); Squamous Epithelial Cells - UA 0-5 SEEN /hpf (5-10)
[2025-04-26 23:00] VITALS: BP 176/78; PULSE 81; RESP 16; O2SAT 99
[2025-04-26 23:00] LABS: AST(SGOT) 22 U/L (<=31); Alanine Aminotransfer ALT/SGPT 26 U/L (<=34); Albumin, Serum 4.6 g/dL (3.4-4.8); Alkaline Phosphatase 64 U/L (35-104); Anion Gap 15 (5-15); BUN 11 mg/dL (4-19); BUN/Creat Ratio 16.0 RATIO (10-20); Calcium,Total 9.7 mg/dL (7.6-11.0); Carbon Dioxide 20.1 mmol/L (21.0-32.0); Chloride 92 mmol/L (98-108); Estimated Creatinine Clearance 66.72 ml/min (50-250); Globulin 2.8 g/dL (2.2-4.2); Glucose 166 mg/dL (70-99); Potassium 3.6 mmol/L (3.3-5.1)
[2025-04-26 23:39] VITALS: BP 189/84; PULSE 85; RESP 18; TEMP 36.6; O2SAT 100
--- NOTE | 2025-04-26 23:40 | EX.ED.DYSGE1 ---
HPI History of Present Illness Chief Complaint: General Illness Narrative Narrative: Patient is a 69-year-old female with past medical history of hyponatremia, hypokalemia, small bowel obstruction who presented to the emergency department the concern for overall not feeling well and high blood pressure. Patient states that she does not have any history of high blood pressure. States that she checked it earlier today and noticed that it was in the 180s became concerned and came here to be further evaluated. 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 Patient denies any sick contacts. She states that her abdomen is just queasy but denies any pain. [facility] Medical History (Updated 04/26/25 @ 23:[address] José Luis Rahman, ) Hypokalemia Hyponatremia Small bowel obstruction Home Medications ?Medication ?Instructions ?Recorded ?Last Taken ?Type glucosamine 750 fk-hqbcicrpac-jsa 1 tab PO DAILY SUPPLEMENT 01/29/19 Unknown History no.1 625 mg-C 30 in-jyia-uobi tablet omega 3-dha 60 mg-epa 90 mg-fish 500 mg PO DAILY Check with primary 03/24/19 Unknown History oil 500 mg capsule, delayed release doctor amlodipine 5 mg tablet 5 mg PO DAILY #30 tabs 04/26/25 Unknown Rx calcium 600 mg (as 1 tab PO DAILY 04/26/25 Unknown History carbonate)-vitamin D3 10 mcg (400 unit) tablet (Calcium 600 + D(3)) multivitamin 1 tab PO DAILY 04/26/25 Unknown History ondansetron 4 mg disintegrating 4 mg PO Q6H PRN nausea and 04/26/25 Unknown Rx tablet vomiting #20 tabs Allergy/AdvReac Type Severity Reaction Status Date / Time No Known Allergies Allergy Verified 04/26/25 21:03 Surgical History (Updated 04/26/25 @ 23:[address] José Luis Rahman, ) Hx of colectomy History of ankle surgery History of wisdom tooth extraction Social History Smoking Status: Former smoker ROS ROS ED ROS Narrative Constitutional: Complains of chills and lightheadedness. No headaches Eyes: Denies double vision blurry vision Cardiovascular: Denies chest pain Respiratory: Denies coughing wheezing shortness of breath Abdomen: Complains of nausea and diarrhea : Denies any urinary symptoms Neurological: Denies any numbness, weakness, tingling Musculoskeletal: Denies back pain Skin: Denies any rashes or lesions EXAM Physical Exam Narrative Exam Narrative: General: Patient was lying in bed rest comfortably did not appear to be in acute distress Head: Atraumatic, normocephalic Eyes: PERRL bilaterally, EOMI bilateral, no conjunctival injection noted Neck: Soft, supple, trachea midline Cardiovascular: Regular rate and rhythm Respiratory: Clear to auscultation bilaterally Abdomen: Soft, nondistended, no tenderness to palpation no rebound or guarding exam Extremities: +5/5 strength noted in the bilateral upper and lower extremities, radial pulses +2/4 in the bilateral extremities, no pedal edema on exam Neurological: Patient following commands knew that she was at [facility] the year is 2024 Skin: Warm, dry, intact no rashes or lesions noted Const Vital Signs: 04/26/25 21:01 04/26/25 21:40 04/26/25 22:12 Temperature 98.4 F Temperature Source Oral Pulse Rate 111 H Respiratory Rate 18 Respiratory Effort Normal Non-Labored Respiratory Pattern Normal Blood Pressure 176/95 H Blood Pressure Mean 122 Pulse Ox 100 100 Oxygen Delivery Method Room Air Room Air 04/26/25 22:30 04/26/25 23:00 04/26/25 23:39 Temperature 98 F Temperature Source Pulse Rate 83 81 85 Respiratory Rate 18 16 18 Respiratory Effort Respiratory Pattern Blood Pressure 167/77 H 176/78 H 189/84 H Blood Pressure Mean 107 110 119 Pulse Ox 99 99 100 Oxygen Delivery Method Room Air Room Air MDM MDM MDM Narrative Medical decision making narrative: Patient is a 69-year-old female who presented to the emergency department the chief complaint of generalized not feeling well as well as hypertension. On the differential leg foods but not limited to hypertensive emergency, viral gastroenteritis, ACS. Once the workup is obtained reviewed she will be reevaluated. Patient CBC reviewed showed no evidence leukocytosis white blood count normal 8.4, hemoglobin stable 13.3, platelet count was 300. Patient's INR normal at 0.9, PT of 12.2. Patient sodium was low indicating hyponatremia at 128 which she has a history of hyponatremia, potassium was normal at 3.6, creatinine was 0.66 this appears to be around her baseline. Patient's AST and ALT were 22 and 26 respectively total bilirubin normal at 0.22. Patient's urinalysis reviewed showed no evidence of infection. Patient chest x-ray reviewed and showed no acute findings. Patient's EKG reviewed showed sinus rhythm with a rate of 80 bpm IL interval normal at 160. Repeat abdominal exam at 11:30 PM she has no abdominal pain on exam. Patient states that she is feeling better and would like to go home at this point time. She states that she is still concerned about her blood pressure being this high and I tried to educate her on asymptomatic hypertension however she states that she would feel better if she was placed on blood pressure medication. She will be given a dose of amlodipine 5 mg here in the emergency department. She was advised to check her blood pressure tomorrow at home a few times before taking another dose tomorrow. She was advised to keep a blood pressure log by randomly checking her blood pressure 2-3 times a day and write this down and taking into her primary care physician which she was referred to per her request as her doctor was previously in [place] and she does not want to drive there anymore. She was advised to return with worsening symptoms or any concerns. She is agreeable this plan all course concerns answered she was discharged home in stable condition. Patient was also given prescriptions for Zofran ODT. Lab Data Labs: Laboratory Results - last 24 hr 04/26/25 04/26/25 22:02 22:13 WBC 8.4 RBC 4.26 Hgb 13.3 Hct 38.1 MCV 89.4 MCH 31.2 MCHC 34.9 RDW Std Deviation 42.7 RDW Coeff of Ashley 13.1 Plt Count 300 MPV 10.7 Immature Gran % (Auto) 0.400 Neut % (Auto) 81.3 H Lymph % (Auto) 11.0 L [place] % (Auto) 6.7 Eos % (Auto) 0.2 Baso % (Auto) 0.4 Absolute Neuts (auto) 6.8 Absolute Lymphs (auto) 0.92 Nucleated RBC % 0 PT 12.2 INR 0.9 APTT 31.9 Sodium 128 L Potassium 3.6 Chloride 92 L Carbon Dioxide 20.1 L Anion Gap 15 BUN 11 Creatinine 0.66 L Estim Creat Clear Calc 66.72 Est GFR (MDRD) Non-Af 94 BUN/Creatinine Ratio 16.0 Glucose 166 H Lactic Acid 1.0 Calcium 9.7 Total Bilirubin 0.22 AST 22 ALT 26 Alkaline Phosphatase 64 Total Protein 7.4 Albumin 4.6 Globulin 2.8 Albumin/Globulin Ratio 1.6 Urine Color Yellow Urine Clarity Clear Urine pH 7.0 Ur Specific [place] 1.005 Urine Protein Negative Urine Glucose (UA) Normal Urine Ketones Negative Urine Occult Blood Negative Urine Nitrite Negative Urine Bilirubin Negative Urine Urobilinogen Normal Ur Leukocyte Esterase Negative Urine RBC 0-5 SEEN Urine WBC 0-5 SEEN Ur Squamous Epith Cells 0-5 SEEN Urine Bacteria RARE Urine Mucus 0 SEEN Radiography Diagnostic Testing: Clinical Impression(s) from Imaging Studies Chest X-Ray 04/26/25 22:10 IMPRESSION: NO ACUTE FINDINGS. Reading Location: [facility] Discharge Plan Triage Chief Complaint: General Illness ED Provider: José Luis Rahman Dx/Rx/DC Orders Clinical Impression: Hyponatremia, Hx of colectomy, Asymptomatic hypertension, Nausea, Diarrhea, Viral gastroenteritis Prescriptions: New amlodipine 5 mg tablet 5 mg PO DAILY Qty: 30 0RF ondansetron 4 mg tablet,disintegrating 4 mg PO Q6H PRN (Reason: nausea and vomiting) Qty: 20 0RF No Action bhhvikpz-gvwh-vbt6-C-emiliano-bosw 750-625-30 mg tablet 1 tab PO DAILY omega 1-uxt-gvw-fish oil 500 MG capsule,delayed release(DR/EC) 500 mg PO DAILY calcium carbonate-vitamin D3 [Calcium 600 + D(3)] 600 mg-10 mcg (400 unit) tablet 1 tab PO DAILY multivitamin Tablet 1 tab PO DAILY Primary Care Provider: Zechariah Araujo Referrals: Zechariah Araujo MD [Primary Care Provider] - Taiwo Ragland MD [Med Staff - Informatics Educator] - Activity Restrictions/Additional Instructions: Follow-up with the doctor referred to you in the outpatient setting. Return with worsening symptoms or any other concerns. Before taking the amlodipine tomorrow and sure that you check your blood pressure a few times to ensure that your blood pressure is not normal because if you take this medication with a normal blood pressure it will drop your blood pressure and you will feel unwell. Ensure you are adequately hydrating with fluids such as water, Gatorade/Powerade/Pedialyte etc. Print Language: Bengali Disposition Disposition: Home, Self Care
--- NOTE | 2025-04-26 23:40 | EX.ED.DYSGE1 ---
HPI History of Present Illness Chief Complaint: General Illness Narrative Narrative: Patient is a 69-year-old female with past medical history of hyponatremia, hypokalemia, small bowel obstruction who presented to the emergency department the concern for overall not feeling well and high blood pressure. Patient states that she does not have any history of high blood pressure. States that she checked it earlier today and noticed that it was in the 180s became concerned and came here to be further evaluated. 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 Patient denies any sick contacts. She states that her abdomen is just queasy but denies any pain. [facility] Medical History (Updated 04/26/25 @ 23:[address] José Luis Rahman, ) Hypokalemia Hyponatremia Small bowel obstruction Home Medications ?Medication ?Instructions ?Recorded ?Last Taken ?Type glucosamine 750 qz-rjpqzsmjwg-jcu 1 tab PO DAILY SUPPLEMENT 01/29/19 Unknown History no.1 625 mg-C 30 jy-ucdm-hlvo tablet omega 3-dha 60 mg-epa 90 mg-fish 500 mg PO DAILY Check with primary 03/24/19 Unknown History oil 500 mg capsule, delayed release doctor amlodipine 5 mg tablet 5 mg PO DAILY #30 tabs 04/26/25 Unknown Rx calcium 600 mg (as 1 tab PO DAILY 04/26/25 Unknown History carbonate)-vitamin D3 10 mcg (400 unit) tablet (Calcium 600 + D(3)) multivitamin 1 tab PO DAILY 04/26/25 Unknown History ondansetron 4 mg disintegrating 4 mg PO Q6H PRN nausea and 04/26/25 Unknown Rx tablet vomiting #20 tabs Allergy/AdvReac Type Severity Reaction Status Date / Time No Known Allergies Allergy Verified 04/26/25 21:03 Surgical History (Updated 04/26/25 @ 23:[address] José Luis Rahman, ) Hx of colectomy History of ankle surgery History of wisdom tooth extraction Social History Smoking Status: Former smoker ROS ROS ED ROS Narrative Constitutional: Complains of chills and lightheadedness. No headaches Eyes: Denies double vision blurry vision Cardiovascular: Denies chest pain Respiratory: Denies coughing wheezing shortness of breath Abdomen: Complains of nausea and diarrhea : Denies any urinary symptoms Neurological: Denies any numbness, weakness, tingling Musculoskeletal: Denies back pain Skin: Denies any rashes or lesions EXAM Physical Exam Narrative Exam Narrative: General: Patient was lying in bed rest comfortably did not appear to be in acute distress Head: Atraumatic, normocephalic Eyes: PERRL bilaterally, EOMI bilateral, no conjunctival injection noted Neck: Soft, supple, trachea midline Cardiovascular: Regular rate and rhythm Respiratory: Clear to auscultation bilaterally Abdomen: Soft, nondistended, no tenderness to palpation no rebound or guarding exam Extremities: +5/5 strength noted in the bilateral upper and lower extremities, radial pulses +2/4 in the bilateral extremities, no pedal edema on exam Neurological: Patient following commands knew that she was at [facility] the year is 2024 Skin: Warm, dry, intact no rashes or lesions noted Const Vital Signs: 04/26/25 21:01 04/26/25 21:40 04/26/25 22:12 Temperature 98.4 F Temperature Source Oral Pulse Rate 111 H Respiratory Rate 18 Respiratory Effort Normal Non-Labored Respiratory Pattern Normal Blood Pressure 176/95 H Blood Pressure Mean 122 Pulse Ox 100 100 Oxygen Delivery Method Room Air Room Air 04/26/25 22:30 04/26/25 23:00 04/26/25 23:39 Temperature 98 F Temperature Source Pulse Rate 83 81 85 Respiratory Rate 18 16 18 Respiratory Effort Respiratory Pattern Blood Pressure 167/77 H 176/78 H 189/84 H Blood Pressure Mean 107 110 119 Pulse Ox 99 99 100 Oxygen Delivery Method Room Air Room Air MDM MDM MDM Narrative Medical decision making narrative: Patient is a 69-year-old female who presented to the emergency department the chief complaint of generalized not feeling well as well as hypertension. On the differential leg foods but not limited to hypertensive emergency, viral gastroenteritis, ACS. Once the workup is obtained reviewed she will be reevaluated. Patient CBC reviewed showed no evidence leukocytosis white blood count normal 8.4, hemoglobin stable 13.3, platelet count was 300. Patient's INR normal at 0.9, PT of 12.2. Patient sodium was low indicating hyponatremia at 128 which she has a history of hyponatremia, potassium was normal at 3.6, creatinine was 0.66 this appears to be around her baseline. Patient's AST and ALT were 22 and 26 respectively total bilirubin normal at 0.22. Patient's urinalysis reviewed showed no evidence of infection. Patient chest x-ray reviewed and showed no acute findings. Patient's EKG reviewed showed sinus rhythm with a rate of 80 bpm [place] interval normal at 160. Repeat abdominal exam at 11:30 PM she has no abdominal pain on exam. Patient states that she is feeling better and would like to go home at this point time. She states that she is still concerned about her blood pressure being this high and I tried to educate her on asymptomatic hypertension however she states that she would feel better if she was placed on blood pressure medication. She will be given a dose of amlodipine 5 mg here in the emergency department. She was advised to check her blood pressure tomorrow at home a few times before taking another dose tomorrow. She was advised to keep a blood pressure log by randomly checking her blood pressure 2-3 times a day and write this down and taking into her primary care physician which she was referred to per her request as her doctor was previously in [place] and she does not want to drive there anymore. She was advised to return with worsening symptoms or any concerns. She is agreeable this plan all course concerns answered she was discharged home in stable condition. Patient was also given prescriptions for Zofran ODT. Lab Data Labs: Laboratory Results - last 24 hr 04/26/25 04/26/25 22:02 22:13 WBC 8.4 RBC 4.26 Hgb 13.3 Hct 38.1 MCV 89.4 MCH 31.2 MCHC 34.9 RDW Std Deviation 42.7 RDW Coeff of [place] 13.1 Plt Count 300 MPV 10.7 Immature Gran % (Auto) 0.400 Neut % (Auto) 81.3 H Lymph % (Auto) 11.[address] [place] % (Auto) 6.7 Eos % (Auto) 0.2 Baso % (Auto) 0.4 Absolute Neuts (auto) 6.8 Absolute Lymphs (auto) 0.92 Nucleated RBC % 0 PT 12.2 INR 0.9 APTT 31.9 Sodium 128 L Potassium 3.6 Chloride 92 L Carbon Dioxide 20.1 L Anion Gap 15 BUN 11 Creatinine 0.66 L Estim Creat Clear Calc 66.72 Est GFR (MDRD) Non-Af 94 BUN/Creatinine Ratio 16.0 Glucose 166 H Lactic Acid 1.0 Calcium 9.7 Total Bilirubin 0.22 AST 22 ALT 26 Alkaline Phosphatase 64 Total Protein 7.4 Albumin 4.6 Globulin 2.8 Albumin/Globulin Ratio 1.6 Urine Color Yellow Urine Clarity Clear Urine pH 7.0 Ur Specific [place] 1.005 Urine Protein Negative Urine Glucose (UA) Normal Urine Ketones Negative Urine Occult Blood Negative Urine Nitrite Negative Urine Bilirubin Negative Urine Urobilinogen Normal Ur Leukocyte Esterase Negative Urine RBC 0-5 SEEN Urine WBC 0-5 SEEN Ur Squamous Epith Cells 0-5 SEEN Urine Bacteria RARE Urine Mucus 0 SEEN Radiography Diagnostic Testing: Clinical Impression(s) from Imaging Studies Chest X-Ray 04/26/25 22:10 IMPRESSION: NO ACUTE FINDINGS. Reading Location: [facility] Discharge Plan Triage Chief Complaint: General Illness ED Provider: José Luis Rahman Dx/Rx/DC Orders Clinical Impression: Hyponatremia, Hx of colectomy, Asymptomatic hypertension, Nausea, Diarrhea, Viral gastroenteritis Prescriptions: New amlodipine 5 mg tablet 5 mg PO DAILY Qty: 30 0RF ondansetron 4 mg tablet,disintegrating 4 mg PO Q6H PRN (Reason: nausea and vomiting) Qty: 20 0RF No Action loydtmkh-asto-oug7-C-emiliano-bosw 750-625-30 mg tablet 1 tab PO DAILY omega 6-usv-ekz-fish oil 500 MG capsule,delayed release(DR/EC) 500 mg PO DAILY calcium carbonate-vitamin D3 [Calcium 600 + D(3)] 600 mg-10 mcg (400 unit) tablet 1 tab PO DAILY multivitamin Tablet 1 tab PO DAILY Primary Care Provider: Zechariah Araujo Referrals: Zechariah Araujo MD [Primary Care Provider] - Taiwo Ragland MD [Med Staff - Truck Repair Supervisor] - Activity Restrictions/Additional Instructions: Follow-up with the doctor referred to you in the outpatient setting. Return with worsening symptoms or any other concerns. Before taking the amlodipine tomorrow and sure that you check your blood pressure a few times to ensure that your blood pressure is not normal because if you take this medication with a normal blood pressure it will drop your blood pressure and you will feel unwell. Ensure you are adequately hydrating with fluids such as water, Gatorade/Powerade/Pedialyte etc. Print Language: Estonian Disposition Disposition: Home, Self Care
== END 2025-04-26 23:54 | disposition home or self-care (01) ==
PROVIDERS: Emergency Provider Emergency Medicine; PCP Family Medicine; Visit Provider Emergency Medicine
DX: E87.1 Hypo-osmolality and hyponatremia (principal); I10 Essential (primary) hypertension; A08.4 Viral intestinal infection, unspecified; Z87.891 Personal history of nicotine dependence
CPT/HCPCS: 71046; 80053; 81001; 83605; 85025; 85610; 85730; 87040; 87086; 87088; 93005; 96360; 99284; A4216

== ENCOUNTER → 2025-05-18 | Outpatient (CLI) | payer MEDICARE, SELFPAY ==
[2025-05-18 18:29] LABS: Anion Gap 12 (5-15); BUN 11 mg/dL (4-19); BUN/Creat Ratio 15.7 RATIO (10-20); Calcium,Total 9.6 mg/dL (7.6-11.0); Carbon Dioxide 23.3 mmol/L (21.0-32.0); Chloride 101 mmol/L (98-108); Glucose 118 mg/dL (70-99); Potassium 4.0 mmol/L (3.3-5.1)
== END | disposition home or self-care (01) ==
LOC: MFPLAB 15:53
PROVIDERS: PCP Family Medicine; Referring Provider Family Medicine; Visit Provider Family Medicine
DX: E87.1 Hypo-osmolality and hyponatremia (principal)
CPT/HCPCS: 36415; 80048; 83036; 84443